=== PATIENT | female | born 1930 | race Caucasian/White ===

== ENCOUNTER 2016-05-18 11:21 | Inpatient (IN) | payer MEDICARE ==
[~2016-05-18] VITALS: Ht 165.1 cm; Wt 77.1 kg
[~2016-05-18 11:21] MED LIST: AMBIEN5 MG PO; COLACE100 MG PO; COUMADIN4 MG PO; COUMADIN5 MG PO; COUMADIN6 MG PO; HYDROCODON-ACE1 EAC7 PO; MIRAPEX ER3 MG PO; PERCOCET 5-3251 TAB PO; SYMBICORT 80-10.2 GM INH; ZESTRIL20 MG PO; ZESTRIL40 MG PO; ZOFRAN4 MG PO
[2016-05-18 12:40] LABS: HEMATOCRIT 34.7 % (36.0-48.0); HEMOGLOBIN 11.9 g/dL (12-16); MCH 29.6 pg (26.0-34.0); MCHC 34.3 g/dL (31.0-37.0); MCV 86.3 fL (80.0-100.0); MEAN PLATELET VOLUME 9.8 fL (7.4-10.4); PLATELET COUNT 186 10x3/uL (130-400); RBC 4.02 10x6/uL (4.00-5.40); RDW 14.2 % (11.5-14.5); WBC 22.2 10x3/uL (4.8-10.8)
[2016-05-18 12:59] LABS: LYMPHOCYTES 2 % (15-50); MONOCYTES 3 % (2-11); NEUTROPHILS 64 % (40-80); PLATELET ESTIMATE NORMAL
[2016-05-18 13:00] LABS: TOXIC GRANULATION 1+; VACUOLES 1+
[2016-05-18 13:12] LABS: ALBUMIN 2.5 g/dL (3.4-5.0); ALKALINE PHOSPHATASE 104 U/L (46-116); ALT (SGPT) 11 U/L (10-68); BILIRUBIN - TOTAL 0.55 mg/dL (0.2-1.3); CALCIUM 8.3 mg/dL (8.5-10.1); CARBON DIOXIDE 20.3 mmol/L (21.0-32.0); CHLORIDE - SERUM 97 mmol/L (98-107); CREATININE - SERUM 1.5 mg/dL (0.6-1.3); GLUCOSE 116 mg/dL (74-106); PROTEIN - SERUM 5.6 g/dL (6.4-8.2); SODIUM 130 mmol/L (136-145); eGFR NON AFRICAN AMERICAN 35 mL/min (90-120)
[2016-05-18 13:18] LABS: CREATINE KINASE 26 UL (21-215); PRO BNP 912 pg/mL (0-450)
[2016-05-18 13:26] LABS: CALC OSMOLALITY 267 mosm/kg (275-300); POTASSIUM - SERUM 3.4 mmol/L (3.5-5.1); TROPONIN-I < 0.017 ng/mL (0.000-0.060); UREA NITROGEN 30 mg/dL (7-18)
[2016-05-18 13:35] LABS: APPEARANCE CLEAR (CLEAR); COLOR YELLOW (YELLOW)
[2016-05-18 13:36] LABS: BILIRUBIN NEGATIVE (NEGATIVE); GLUCOSE NEGATIVE (NEGATIVE); KETONE NEGATIVE (NEGATIVE); LEUKOCYTE ESTERASE TRACE (NEGATIVE); NITRITE NEGATIVE (NEGATIVE); PROTEIN TRACE mg/dL (NEGATIVE); UROBILINOGEN NORMAL (NORMAL)
[2016-05-18 13:43] LABS: BACTERIA MODERATE /hpf (NONE SEEN); EPITHELIAL CELLS 0-5 /hpf (0-5); HYALINE CAST 0-5 /lpf (NONE SEEN); MUCUS <1+ /lpf (NONE SEEN); RED CELLS - URINE OCC /hpf (0-5)
--- NOTE | 2016-05-18 16:30 | NUR ---
PATIENT ARRIVED TO UNIT AT 1620 VIA WHEELCHAIR FROM ER AND ADMITTED TO ROOM 2110. ALERT AND ORIENTED. PATIENT WITH FAMILY FRIEND, AT BEDSIDE. CALL LIGHT WITH IN REACH. 20 GAUGE IV TO RIGHT FOREARM SALINE LOCKED. DENIES PAIN. NO ACUTE DISTRESS.
[2016-05-18] MEDS ORDERED: COUMADIN5 MG PO (16:49)
[2016-05-18] MEDS ORDERED: ZESTRIL40 MG PO (16:49)
--- NOTE | 2016-05-18 17:00 | NUR ---
CALL LAB AND QUESTIONED LETICIA WHY THE MICROBIOLOGY REPORT STATES THAT THE URINE WAS NOT RECEIVED IN LAB FOR THE CULTURE AND SHE STATED THAT THE URINE IS HERE AND THAT THE REPORT SAYS THAT UNTIL THE PRELIMINARY REPORT IS BACK. INFORMED LETICIA THAT IN THE PAST, REPORTS ALWAYS STATE CULTURE PENDING AND THIS APPEARS THAT THE SPECIMEN WAS NOT RECEIVED FROM NURSING END. SPOKE WITH PEN AND PENCIL REPAIRER IN REGARDS TO INFORMATION THAT LAB PROVIDED.
[2016-05-18 17:16] VITALS: BP 145/71; BMI 22.0
[2016-05-18 17:25] LABS: INR 3.82 (0.85-1.17); PROTIME 38.1 SECONDS (11.6-15.0)
--- NOTE | 2016-05-18 17:45 | NUR ---
ASSISTED PATIENT TO RESTROOM WITH USE OF WALKER. NO STOOL, UNABLE TO COLLECT SPECIMEN. ASSISTED PATIENT BACK TO BED. NO DISTRESS. CALL LIGHT PLACED WITHIN REACH.
--- NOTE | 2016-05-18 18:41 | NUR ---
CLEAR LIQUID DIET PROVIDED TO PATIENT AT THIS TIME. RESTING IN BED WITH EYES OPEN. CALL LIGHT WITHIN REACH. NO DISTRESS.
--- NOTE | 2016-05-18 20:00 | NUR ---
PT RESTING IN BED. ALERT/ORIENTED. NEEDING TO VOID. ASSISTED UP TO BATHROOM, USING WALKER AND STAFF ASSISTANCE, PT ABLE TO GO TO BATHROOM, VOID AND RETURN TO BED. NS @ 125ML/HR INFUSING TO RIGHT WRIST. NONLABORED RESPIRATIONS ON ROOM AIR. SEE ASSESSMENT. CPOC. CALL LIGHT IN REACH.
--- NOTE | 2016-05-18 20:39 | NUR ---
VISITOR AT BEDSIDE. PT CONVERSING. CPOC. CALL LIGHT IN REACH.
[2016-05-18 20:57] VITALS: BP 129/56
--- NOTE | 2016-05-18 21:03 | NUR ---
DR ERNESTINA PACHECO. CURRENTLY IN ROOM SEEING PATIENT.
--- NOTE | 2016-05-18 23:10 | NUR ---
HS MEDS GIVEN, INCLUDING REQUESTED AMBIEN 2.5MG TO PROMOTE SLEEP. PT HAS BEEN ASSISTED UP TO BATHROOM AGAIN AND IS NOW READY TO SLEEP. CPOC.
[2016-05-19 00:34] VITALS: BP 112/97
[2016-05-19 04:31] VITALS: BP 127/61
[2016-05-19 05:54] LABS: BASOPHILS 0.1 % (0.0-2.0); EOSINOPHILS 0.1 % (0-7); HEMATOCRIT 32.4 % (36.0-48.0); IMMATURE GRANULOCYTES 0.8 % (0-5); LYMPHOCYTES 3.2 % (15-50); MCH 29.5 pg (26.0-34.0); MCV 86.9 fL (80.0-100.0); MEAN PLATELET VOLUME 10.4 fL (7.4-10.4); MONOCYTES 6.5 % (2-11); NEUTROPHILS 89.3 % (40-80); PLATELET COUNT 190 10x3/uL (130-400); RBC 3.73 10x6/uL (4.00-5.40); RDW 14.5 % (11.5-14.5); WBC 17.4 10x3/uL (4.8-10.8)
--- NOTE | 2016-05-19 06:00 | NUR ---
ASSISTED UP TO USE BATHROOM AND BACK TO BED. PT C/O FEELING WEAKER AND TIRED. STATES SHE DID NOT SLEEP LAST NIGHT FOR GETTING UP AND DOWN TO THE BATHROOM. IVF NS @ 125ML/HR INFUSING. CPOC.
[2016-05-19 06:15] LABS: ANION GAP 15.1 mmol/L (8-16); CALCIUM 8.1 mg/dL (8.5-10.1); CARBON DIOXIDE 19.4 mmol/L (21.0-32.0); CREATININE - SERUM 1.2 mg/dL (0.6-1.3); POTASSIUM - SERUM 3.5 mmol/L (3.5-5.1)
[2016-05-19 07:40] VITALS: BP 160/85
--- NOTE | 2016-05-19 08:08 | NUR ---
ASSESSMENT DONE. PT LAYING IN BED AWAKE. BREAKFAST TRAY IN ROOM, BUT PT WISHESE TO WAIT UNTIL LATER TO EAT IT. DENIES NEEDS AT THIS TIME. CALL LIGHT WITH IN REACH. WILL CONT. TO MONITOR.
--- NOTE | 2016-05-19 09:30 | NUR ---
RESTS WITH EYES CLOSED. IV PATENT. CALL LIGHT IN REACH. WILL MONITOR NEEDS.
[2016-05-19 10:19] VITALS: BMI 22.0
[2016-05-19 11:48] VITALS: BP 187/105
--- NOTE | 2016-05-19 11:57 | NUR ---
PT SITTING IN CHAIR AT BEDSIDE. C/O SOB. TREMBLING, C/O BEING COLD. CARD WRITER HAND TOOK VS WITH MACHINE B/P 187/108, P-135, O2 82, TEMP 98.7. PHYSICAL THERAPY AND RESP PAGE. PT ASSITED WITH GETTING PT BACK TO BED. NURSE TOOK VS MANUALLY. B/P 150/102, P-105, O2-78, TEMP 103 AX. PLACED PT ON O2 AT 4LITERS VIA NC PER PT. WITH INCREASED O2 SAT TO 95%. PAGED NIKOLE CARPET CLEANING TECHNICIAN. COOL WASH CLOTHES PLACED IN PT'S HOT SPOT, PT ENCOURAGED TO DRINK ICE WATER. ORDER FOR TYLENOL REC'D AND ADM. WILL MONITOR.
--- NOTE | 2016-05-19 14:16 | NUR ---
TEMP 99.3. PT STATES SHE IS FEELING BETTER. EATTING LATE LUNCH. DENEIS NEEDS AT THIS TIME. WILL CONT. TO MONITOR.
--- NOTE | 2016-05-19 16:00 | NUR ---
IV TO PT'S LEFT ARM INFILTRATED. REMOVED WARM MOIST HEAT APPLIED. RESITED TO PT'S LEFT FOREARM WITH 22 G.
[2016-05-19 16:09] LABS: % SATURATION 19 % (15-55); IRON 15 ug/dl (35-150); TOTAL IRON BIND CAPACITY 78 ug/dl (260-445); UNSAT IRON BIND CAPACITY 63 ug/dl (150-375)
[2016-05-19 16:18] VITALS: BP 91/47
--- NOTE | 2016-05-19 17:58 | NUR ---
PT RESTING. HOB ELEVATED. FAMILY IN ROOM. NO DISTRESS NOTED. DENIES NEEDS. CALL LIGHT WITH IN REACH. WILL CONT. TO MONITOR.
--- NOTE | 2016-05-19 19:45 | NUR ---
PT SUPERVISOR SOLDERING LIGHT REQUESTING ASSISTANCE TO BATHROOM. AUTO HAULER ASSISTED PT TO BATHROOM. VOIDS IN SMALL AMOUNTS. IVF NS @ 125ML/HR INFUSING. O2 @ 4L/NC. SR PER TELEMETRY. ASSISTED BACK TO BED.
--- NOTE | 2016-05-19 20:30 | NUR ---
DR DO ON UNIT SEEING PATIENT.
--- NOTE | 2016-05-19 21:09 | NUR ---
SOON LEFT PT ROOM, SHE WAS GRAIN HANDLER LIGHT SAYING HE WAS GIVING HER MEDS FOR HAVING A BM. PT THEN C/O BED SHEETS NEEDING TO BE STRAIGHTENED, THAT HER PILLOW WAS CROOKED, THAT "TUBES" WERE EVERYWHERE. SPOKE WITH PT ABOUT BEING INDEPENDENT POSSIBLE. PT STATES SHE IS TOO WEAK TO EVEN LIFT HER HEAD OR PULL UP A SHEET. COMPLETELY PULLED UP/REPOSITONED ALL SHEETS/COVERS/GOWN. PT C/O LUMP IN HER BACK, WHICH ENDED UP BEING THE TIE IN HER GOWN. SO GOWN IS NOW UNTIED SO IT WILL NOT BOTHER HER. PLACED ONE SHEET, ONE BLANKET AND ONE SATIN PILLOW BEHIND PT'S HEAD. HS MEDS GIVEN, WHICH INCLUDED ONE TIME DOSE OF DUCOLAX AND MOM TO PROMOTE BM PER NEW ORDERS OF DR. DO. CALL LIGHT IN REACH. CPOC.
[2016-05-19 22:01] VITALS: BP 114/62
--- NOTE | 2016-05-19 22:26 | NUR ---
EYES CLOSED. RESPS EVEN/NONLABORED. CALL LIGHT IN REACH. CPOC.
[2016-05-20 01:10] VITALS: BP 102/49
[2016-05-20 05:17] LABS: HEMATOCRIT 32.1 % (36.0-48.0); HEMOGLOBIN 10.8 g/dL (12-16); MCH 28.4 pg (26.0-34.0); MCHC 33.6 g/dL (31.0-37.0); MCV 84.5 fL (80.0-100.0); PLATELET COUNT 206 10x3/uL (130-400); RDW 14.5 % (11.5-14.5); WBC 21.9 10x3/uL (4.8-10.8)
[2016-05-20 05:33] VITALS: BP 111/53
[2016-05-20 05:47] LABS: ANION GAP 14.8 mmol/L (8-16); CARBON DIOXIDE 19.3 mmol/L (21.0-32.0); CREATININE - SERUM 1.1 mg/dL (0.6-1.3); POTASSIUM - SERUM 3.1 mmol/L (3.5-5.1)
[2016-05-20 06:57] LABS: INR 8.12 (0.85-1.17); PROTIME 69.7 SECONDS (11.6-15.0)
[2016-05-20 06:59] LABS: LYMPHOCYTES 2 % (15-50); MONOCYTES 3 % (2-11); NEUTROPHILS 77 % (40-80); PLATELET ESTIMATE NORMAL
[2016-05-20 08:00] VITALS: BP 114/67
--- NOTE | 2016-05-20 08:04 | NUR ---
0730-AM ROUNDING MADE, HOB OF 30 DEGREES. PATIENT IS RESTING WITH EYES CLOSED. RESP ARE EVEN AND NON LABORED. ON HEART MONITOR SHOWING SR, HR 99. ON 2 L PER NC. NS INFUSING AT 100 CC/HR TO LEFT FA. WILL CONTINUE TO MONITOR. ON EP, LAB VALUES ARE OFF, WILL REPLACE PER PROTOCOL.
[2016-05-20 08:17] LABS: FOLATE (FOLIC ACID) - SERUM 18.9 ng/mL (>3.0)
--- NOTE | 2016-05-20 09:24 | NUR ---
CRITICAL RESULTS WERE REPEATED OF PT/INR AND RESULTS ARE THE SAME. 69.7/8.12, NIKOLE BLAKELY APN IS NOTIFIED OF THIS, AWAITING CALL BACK.
--- NOTE | 2016-05-20 10:12 | NUR ---
PATIENT IS UP IN CHAIR, DENIES NEEDS. RT HERE FOR BREATHING TREATMENT. WILL CONTINUE TO MONITOR.
--- NOTE | 2016-05-20 10:19 | NUR ---
1016-RECEIVED CALL BACK FROM NIKOLE BLAKELY APN. NEW ORDERS RECEIVED AND NOTED.
[2016-05-20 12:00] VITALS: BP 134/82
--- NOTE | 2016-05-20 13:51 | NUR ---
PATIENT TO HAVE VERY LOOSE STOOL THAT WAS MIXED WITH URINE. UNABLE TO SEND SEPCIMEN FOR LAB ORDER.
[2016-05-20 16:00] VITALS: BP 144/86
--- NOTE | 2016-05-20 16:45 | NUR ---
Patient Name: MARTHA KENNY Admission Status: ER Accout number: [id number] Admission Date: 05-18-2016 : 1930 Admission Diagnosis:PNEUMONIA, UNSPECIFIED ORGANISM Attending: MULU Current LOS: 2 Anticipated DC Date: Planned Disposition: Home Primary Insurance: MEDICARE A & B Discharge Planning Comments: * Is the patient Alert and Oriented? Yes 0 * How many steps to enter\exit or inside your home? 4 W/RAILS 0 * PCP DR. MCDONALD 0 * Pharmacy [facility] 0 * Preadmission Environment Home Alone 0 * ADLs Independent 0 * Equipment Cane Walker Wheelchair 0 * Other Equipment NO MEDICAL EQUIPMENT PROVIDER PREFERENCE 0 * List name and contact numbers for known caregivers / representatives who currently or will assist patient after discharge: EDER ARCHULETA, DAUGHTER, 0 * Community resources currently utilized None 0 * Please name any agencies selected above. OTHER 0 * Additional services required to return to the preadmission environment? No 0 * Can the patient safely return to the preadmission environment? Yes 0 * Has this patient been hospitalized within the prior 30 days at any hospital? No 0 CM MET WITH PT IN ROOM TO DISCUSS DISCHARGE PLANNING AND NEEDS. PT REPORTS LIVING AT HOME INDEPENDENTLY AND ALONE. PT HAS NO MEDICAL EQUIPMENT AND NO OUTSIDE SERVICES ASSISTING IN THE HOME. CM DISCUSSED AVAILABILITY OF HOME HEALTH, REHAB SERVICES AND MEDICAL EQUIPMENT. PT DOES NOT ANTICIPATE DISCHARGE NEEDS AT THIS TIME BUT WILL CONSIDER HOME HEALTH SERVICES; PT REPORTS HER DAUGHTER FROM [place] IS GOING TO COME AND STAY WITH HER TO ASSIST AFTER DISCHARGE. PT REPORTS DAUGHTER WILL PICK HER UP FOR DISCHARGE HOME. PT DOES NOT ANTICIPATE DISCHARGE NEEDS AND WILL CONSIDER HOME HEALTH FOR DISCHARGE. CM TO FOLLOW AND ASSIST NEEDED. Casino Attendant: Anthony Carranza
--- NOTE | 2016-05-20 17:39 | NUR ---
CHLORASEPTIC SPRAY GIVEN PER REQUEST.
[2016-05-20 20:00] VITALS: BP 147/80
--- NOTE | 2016-05-20 20:14 | NUR ---
HAT AND CAP DRYING ROOM ATTENDANT AT BED SIDE, UP WIT ASSIST TO BSC FOR BM. UNABLE TO COLLECT SPECIMEN DUE TO URINE BEING MIXED IN SPECIMEN.
[2016-05-21] VITALS: BP 139/78; BP 141/75
--- NOTE | 2016-05-21 00:26 | NUR ---
HAND SPRAY OPERATOR AT BEDSIDE TO OBTAIN VITALS, CALL LIGHT IN REACH. WILL CONTINUE WITH PLAN OF CARE.
[2016-05-21 06:29] LABS: BASOPHILS 0.1 % (0.0-2.0); EOSINOPHILS 0 % (0-7); HEMATOCRIT 35.4 % (36.0-48.0); HEMOGLOBIN 12.2 g/dL (12-16); IMMATURE GRANULOCYTES 4.2 % (0-5); LYMPHOCYTES 3.2 % (15-50); MCH 29.3 pg (26.0-34.0); MCHC 34.5 g/dL (31.0-37.0); MCV 85.1 fL (80.0-100.0); MEAN PLATELET VOLUME 10.4 fL (7.4-10.4); MONOCYTES 4.5 % (2-11); PLATELET COUNT 264 10x3/uL (130-400); RBC 4.16 10x6/uL (4.00-5.40); RDW 14.8 % (11.5-14.5); WBC 30.5 10x3/uL (4.8-10.8)
[2016-05-21 06:34] LABS: ANION GAP 15.7 mmol/L (8-16); CALCIUM 7.7 mg/dL (8.5-10.1); CARBON DIOXIDE 18.2 mmol/L (21.0-32.0); POTASSIUM - SERUM 3.9 mmol/L (3.5-5.1)
[2016-05-21 06:59] LABS: INR 11.33 (0.85-1.17); PROTIME 90.9 SECONDS (11.6-15.0)
[2016-05-21 08:00] VITALS: BP 148/79
--- NOTE | 2016-05-21 08:00 | NUR ---
ALERT AND ORIENTED X4. RESTING IN BED. DENIES PAIN OR SOB. PROTIME 90.9 AND INR-11.33. NOTIFY KURT AGUSTIN. ORDER REDRAW FOR VERIFICATION. CALL RESULTS TO . SINUS RHYTHM 91bpm ON TELEMETRY. BED LOCKED AND LOW. CALL LIGHT IN REACH. TWO SIDERAILS UP.
[2016-05-21 10:22] LABS: INR 12.42 (0.85-1.17); PROTIME 97.9 SECONDS (11.6-15.0)
--- NOTE | 2016-05-21 10:45 | NUR ---
PROTIME 97.9 AND INR 12.42. CALL RESULTS TO DR. GALVAN. NO NEW ORDERS AT THIS TIME. FREE FROM BLEEDING.
[2016-05-21 12:00] VITALS: BP 130/74
--- NOTE | 2016-05-21 14:24 | NUR ---
Nutrition Follow Up: Chart reviewed. Diet: Regular; Ensure TID PO Intake: 28% (7 meal avg) +BM x 3 05/21/16 Wt stable Labs noted - Glucose elevated; Na low Meds: Solumedrol, Ns @ 100 ml/hr, Zofran Pt with poor po intake at this time. Rec consider an appetite stimulant. Rec continue current diet, supplement regimen. RD following.
--- NOTE | 2016-05-21 14:58 | NUR ---
ALERT AND ORIENTED X4. OOB WITH PHYSICAL THERAPY. AMBULATES IN [place] TO NURSES DESK ASSISTED BY PT AND WALKER. DENIES PAIN. OXYGEN THERAPY @ 2L NC. STOOL TAKEN TO LAB. IV NS DECREASED TO 50mL/HR ORDERED. CONTINUE PLAN OF CARE. BED LOCKED AND LOW. CALL LIGHT IN REACH. TWO SIDERAILS UP. SINUS TACH 115bpm ON TELEMETRY. VIT. K GIVEN FOR HIGH PT AND INR.
[2016-05-21 17:09] LABS: INR 11.79 (0.85-1.17); PROTIME 93.9 SECONDS (11.6-15.0)
--- NOTE | 2016-05-21 19:10 | NUR ---
ALERT/AWAKE WATCHING TV. IN CONTACT ISOLATION FOR CDIFF. IV IN L FA WITH NS INFUSING AT 50ML/HR. 02 AT 2L/NC. RR 18 EVEN U/L. TELEMETRY SHOWS [address] ST ON MONITOR. DENIES PAIN OR ANY NEEDS. CALL LIGHT AND BEDSIDE TABLE WITH PERSONAL ITEMS IN REACH.
--- NOTE | 2016-05-21 20:50 | NUR ---
ADMIN SCHED MEDS. HELD MILK OF MAG, STATED SHE HAD DIARRHEA TODAY. REQUESTED ANOTHER GOWN AND PILLOW.
[2016-05-21 22:35] VITALS: BP 123/58
--- NOTE | 2016-05-21 23:00 | NUR ---
IV INFILTRATED. REMOVED AND RESITED IN RT FA 20G.
--- NOTE | 2016-05-22 00:50 | NUR ---
REQUESTED MILK OF MAG HELD EARLIER. STATED "I AM FEELING SOME PRESSURE IN MY STOMACH AND WANT TO HAVE THE MILK OF MAG NOW".
[2016-05-22 01:32] VITALS: BP 134/62
[2016-05-22 02:24] LABS: BASOPHILS 0.1 % (0.0-2.0); EOSINOPHILS 0 % (0-7); HEMOGLOBIN 11.6 g/dL (12-16); LYMPHOCYTES 2.2 % (15-50); MCH 29.1 pg (26.0-34.0); MCHC 35.2 g/dL (31.0-37.0); MCV 82.9 fL (80.0-100.0); MEAN PLATELET VOLUME 9.8 fL (7.4-10.4); MONOCYTES 3.1 % (2-11); NEUTROPHILS 87.6 % (40-80); PLATELET COUNT 223 10x3/uL (130-400); RBC 3.98 10x6/uL (4.00-5.40); RDW 14.6 % (11.5-14.5); WBC 42.6 10x3/uL (4.8-10.8)
[2016-05-22 02:35] LABS: APTT 43.6 SECONDS (22.8-39.4)
[2016-05-22 02:37] LABS: ANION GAP 15.4 mmol/L (8-16); CALCIUM 8.3 mg/dL (8.5-10.1); CREATININE - SERUM 1.2 mg/dL (0.6-1.3); POTASSIUM - SERUM 4.4 mmol/L (3.5-5.1)
[2016-05-22 02:42] LABS: INR 3.08 (0.85-1.17); PROTIME 32.1 SECONDS (11.6-15.0)
[2016-05-22 02:44] LABS: NORMAL PLASMA / APTT 31.4 SECONDS (22.8-39.4); NORMAL PLASMA / PROTHROBIN 15.1 SECONDS (11.6-15.0)
--- NOTE | 2016-05-22 05:30 | NUR ---
VOLUNTEER RECRUITER GAVE BATH, CHANGED BEDDING, ASSISTED TO BSC.
[2016-05-22 05:59] VITALS: BP 102/55
--- NOTE | 2016-05-22 07:54 | NUR ---
AM ROUNDING- PT LAYING IN BED RESTING, DENIES ANY NEED AT THIS TIME. FRIEND AT BEDSIDE. ON EP, AWAITING AM LAB RESULTS TO COME BACK. IN ISOLATION FOR C.DIFF. ALERT AND ORIENTED. ON 2L 0F 02 VIA NC. IV SEEN TO RIGHT FOREARM WITH NS RUNNING AT 50CC. PT HAS BEDSIDE COMMODE. ON MONITOR SHOWING ST, HR 119. PT IS UP WITH ASSIST. PER REPORT FROM FOREST RANGER NURSE ROSALVA, PT HAS HX OF LEUKOCYTOSIS. PT IS REQUESTING TO NOT HAVE MILK OF MAG GIVEN TO HER ANYMORE. WILL CONTINUE TO MONITOR.
[2016-05-22 08:00] VITALS: BP 101/52
[2016-05-22 10:01] LABS: INR 2.59 (0.85-1.17); PROTIME 27.9 SECONDS (11.6-15.0)
[2016-05-22 10:05] LABS: APTT 32.3 SECONDS (22.8-39.4)
--- NOTE | 2016-05-22 10:47 | NUR ---
PT IS UP WITH ASSIST. HAS WALKER AT BEDSIDE.
--- NOTE | 2016-05-22 11:37 | NUR ---
DR. NOGUEIRA CALLED AND STATED TO GIVE COPY OF PTS LAB RESULTS TO DR. RAMOS, PTS PRIMARY DOCTOR, AND TO ALSO HAVE NIKOLE BLAKELY CALL HIM WHEN SHE COMES TO UNIT. WILL CONTINUE TO MONITOR. .
[2016-05-22 12:33] VITALS: BP 104/55
--- NOTE | 2016-05-22 12:39 | NUR ---
CALLED RADIOLOGY, SPOKE WITH SHWETHA AND INFORMED HER THAT WE NEED A STAT ACUTE ABDOMINAL SERIES ON PT.
[2016-05-22 16:00] VITALS: BP 102/50
--- NOTE | 2016-05-22 16:08 | NUR ---
MITCHELL GILL REPORTED ASKING PT IF SHE WOULD LIKE TO HAVE A BED BATH AND CLEAN UP. PT STATED SHE DID NOT WANT TO TODAY. WILL CONTINUE TO MONITOR.
--- NOTE | 2016-05-22 18:26 | NUR ---
PT LAYING IN BED RESTING, DAUGHTER AT BEDSIDE. DENIES ANY NEED AT THIS TIME. AWAITING BLADDER SCAN TO BE BACK ON UNIT FROM MED SURG TO DO A BLADDER SCAN OF PTS BLADDER. PT HAS HAD NO REPORT OF URINATING TODAY BUT HAS HAD WATERY DIARRHEA (PT HAS C.DIFF). WILL CONTINUE TO MONITOR.
--- NOTE | 2016-05-22 18:50 | NUR ---
DR. DO REPORTED TO ME ON UNIT THAT HE WOULD LIKE TO PUT A PARADA IN PT. WILL PASS THIS ON IN REPORT TO BIOMETRICIAN NURSE, ROSALVA. WILL CONTINUE TO MONITOR.
--- NOTE | 2016-05-22 19:20 | NUR ---
ALERT/AWAKE WATCHING TV. REQUESTED JELLO AND COLA. IN IN R FA INTACT/PATENT. HER DAUGHTER IS PRESENT IN ROOM. NO QUESTIONS OR CONCERNS VOICED.
[2016-05-22 20:30] VITALS: BP 141/72
--- NOTE | 2016-05-22 22:30 | NUR ---
PLACED PARADA PER ORDER. HAD APPROXIMATELY 350CC DARK URINE DRAINED INTO BAG.
--- NOTE | 2016-05-22 23:21 | NUR ---
HAND TUBE BENDER ASSISTING TO BSC. NO OTHER NEEDS VOICED.
[2016-05-23] VITALS (15 sets, daily range): BP systolic 80–125; BP diastolic 47–71; Ht 165.1 cm; Wt 77.1 kg
--- NOTE | 2016-05-23 02:35 | NUR ---
RECEIVING RESP. UPDRAFT TX. DENIES ANY NEEDS AT THIS TIME. HAS CALL LIGHT IN REACH.
[2016-05-23 06:57] LABS: ANION GAP 15.7 mmol/L (8-16); CALCIUM 7.9 mg/dL (8.5-10.1); CARBON DIOXIDE 16.1 mmol/L (21.0-32.0); CREATININE - SERUM 1.4 mg/dL (0.6-1.3); POTASSIUM - SERUM 4.8 mmol/L (3.5-5.1)
[2016-05-23 06:58] LABS: BASOPHILS 0.6 % (0.0-2.0); EOSINOPHILS 0.1 % (0-7); HEMATOCRIT 36.3 % (36.0-48.0); HEMOGLOBIN 12.5 g/dL (12-16); IMMATURE GRANULOCYTES 12.2 % (0-5); LYMPHOCYTES 2.5 % (15-50); MCH 29.5 pg (26.0-34.0); MCHC 34.4 g/dL (31.0-37.0); MCV 85.6 fL (80.0-100.0); MEAN PLATELET VOLUME 11.1 fL (7.4-10.4); MONOCYTES 1.8 % (2-11); NEUTROPHILS 82.8 % (40-80); PLATELET COUNT 167 10x3/uL (130-400); RBC 4.24 10x6/uL (4.00-5.40); RDW 15.6 % (11.5-14.5)
[2016-05-23 07:02] LABS: INR 1.93 (0.85-1.17)
--- NOTE | 2016-05-23 07:45 | NUR ---
RESTING QUIETLY NAD NOTED AT THIS TIME
--- NOTE | 2016-05-23 08:54 | NUR ---
ASSESSMENT COMPLETED. 02 AT 2 L/M PER [place]. TELEMERTY SHOWS ST 102.IV TO FA AT 150. DR. MCDONALD HERE. ORDERS RECIEVED FROM DR. PEREYRA AND DR. DO.
[2016-05-23 12:00] LABS: EOSINOPHILS 2 % (0-7); LYMPHOCYTES 6 % (15-50); MONOCYTES 2 % (2-11); NEUTROPHILS 78 % (40-80)
[2016-05-23 12:02] LABS: PLATELET ESTIMATE NORMAL
--- NOTE | 2016-05-23 12:48 | NUR ---
PT ARRIED TO UNIT AT THIS TIME VIA BED. RECIEVED REPORT FROM ABHINAV FROM MED 2. PT ACCOMPANIED BY HOSPITAL STAFF. IS ON CONTACT ISOLATION FOR CDIFF. NO ACUTE DISTRESS NOTED. WILL CONTINUE PLAN OF CARE.
--- NOTE | 2016-05-23 12:51 | NUR ---
TRANSFERED TO ICU. REPORT GIVEN TO VILMA SAPP
--- NOTE | 2016-05-23 13:33 | NUR ---
SITTING UP IN BED AT THIS TIME. ALERT AND ORIENTED. NO ACUTE DISTRESS NOTED. PARTIAL LINEN CHANGE PROVIDED, INCONTINENT YELLOW-LIQUID COLORED STOOL NOTED. SOPHIA AND PARADA CARE PROVIDED TO PT. WILL CONTINUE PLAN OF CARE
--- NOTE | 2016-05-23 15:11 | NUR ---
SITTING UP IN BED AT THIS TIME VISITING WITH VISITORS. NOTED NEW ORDER FOR RECTAL TUBE AND PROCALAMINE IV. WILL START SECOND IV FOR PROCALAMINE TO INFUSE AND WILL PLACE RECTAL TUBE AFTER VISITATION IS OVER. NOTED RECAL TUBE IS ORDERED TO PRESERVE SKIN, PT HAVING MULTIPLE EPISODES OF WATERY STOOL. NO ACUTE DISTRESS NOTED. WILL CONTINUE PLAN OF CARE
[2016-05-23 15:32] LABS: BASOPHILS 0.4 % (0.0-2.0); EOSINOPHILS 0.2 % (0-7); HEMATOCRIT 36.6 % (36.0-48.0); HEMOGLOBIN 13.1 g/dL (12-16); IMMATURE GRANULOCYTES 18.5 % (0-5); LYMPHOCYTES 3.1 % (15-50); MCH 29.9 pg (26.0-34.0); MCHC 35.8 g/dL (31.0-37.0); MCV 83.6 fL (80.0-100.0); MEAN PLATELET VOLUME 10.4 fL (7.4-10.4); MONOCYTES 0.5 % (2-11); NEUTROPHILS 77.3 % (40-80); PLATELET COUNT 101 10x3/uL (130-400); RBC 4.38 10x6/uL (4.00-5.40); RDW 14.9 % (11.5-14.5)
[2016-05-23 15:33] LABS: WBC 72.2 10x3/uL (4.8-10.8)
--- NOTE | 2016-05-23 16:23 | NUR ---
RECTAL TUBE PLACED AT THIS TIME. STOOL FLOWING INTO CLOSED CONTAINER. ALSO AT THIS TIME ATTEMPTED TO START A SECOND IV X 2 ATTEMPTS WITH NO SUCCESS TO LEFT THEN RIGHT FOREARM. WILL ASK NEXT NURSE TO ATTEMPT NEW IV START. NO ACUTE DISTRESS NOTED. WILL CONTINUE PLAN OF CARE.
--- NOTE | 2016-05-23 17:00 | NUR ---
SECOND IV PLACED TO RIGHT AC, 20G. FLUSHES WELL.
--- NOTE | 2016-05-23 18:34 | NUR ---
NOTED DR HEIN HAS ALREADY BEEN NOTIFIED OF CONSULT FOR PT PER NURSES NOTES. PAGED DR HEIN AT THIS TIME TO MAKE SURE CONSULT HAS BEEN MADE AND NOTIFY OF INCREASING WBC. WAITING FOR CALLBACK.
--- NOTE | 2016-05-23 18:43 | NUR ---
RECIEVED CALLBACK FROM DR HEIN, STATED SHE IS AWARE OF CONSULT, UPDATE GIVEN. ALSO DR PEREYRA SPOKE TO DR HEIN TO GIVE UPDATE. WILL CONTINUE PLAN OF CARE
--- NOTE | 2016-05-23 19:00 | NUR ---
RECEIVED PATIENT IN BED WITH EYES OPEN USING HER IPAD. PATIENT IS AO X4. EYES PERRLA @ 4MM WITH BRISK RESPONSE, PATIENT WEARS GLASSES, SCLERA IS CLEAR AND WHITE. PATIETN ON 2L VIA NC, ORAL/NASAL MUCOSA IS MOIST AND INTACT. S1/S2 NOTED WITH PATIENT SINUS TACHYCARDIA ON TELEMETRY. BREATHING IS EVEN AND EFFORTLESS, LUNG SOUNDS ARE CLEAR BILATERAL UPPER WITH FINE CRACKLES NOTED IN LOWER LOBES. ABDOMEN IS SOFT AND NONTENDER TO PALPATION, PARADA SECURED WITH STATLOCK, ADORE URINE NOTED IN COLLECTION BAG. BOWEL SOUNDS HYPOACTIVE X4, FECAL TUBE SECURED IN PLACE WITH YELLOW LIQUID STOOL NOTED. FULL ROM ALL EXTREMITIES WITH SLIGHT WEAKNESS NOTED, ALL PULSES PALPABLE. PATIENT DENIES PAIN OR OTHER NEEDS AT THIS TIME, WILL CONTINUE TO MONITOR.
--- NOTE | 2016-05-23 19:20 | NUR ---
SPOKE WITH DR DUBOIS IN RELATION TO PT LOW BLOOD PRESSURE OF 85/57 WITH MAP OF 70, PULSE 109. NOTED ORDER FOR ONE TIME BOLUS 500ML NS. AND IF THE NS DOES NOT HELP WITH BP THEN TO START LEVOFED TITRATE. WILL PLACE ORDERS ORDERED.
[2016-05-23 19:28] LABS: CREATININE - URINE 186.6 mg/dL (30-125)
[2016-05-23 19:31] LABS: APPEARANCE HAZY (CLEAR); BACTERIA MODERATE /hpf (NONE SEEN); BILIRUBIN NEGATIVE (NEGATIVE); COLOR DK YELLOW (YELLOW); EPITHELIAL CELLS 0-5 /hpf (0-5); GLUCOSE NEGATIVE (NEGATIVE); KETONE NEGATIVE (NEGATIVE); LEUKOCYTE ESTERASE TRACE (NEGATIVE); MUCUS <1+ /lpf (NONE SEEN); NITRITE NEGATIVE (NEGATIVE); PROTEIN TRACE mg/dL (NEGATIVE); RED CELLS - URINE >50 /hpf (0-5); UROBILINOGEN NORMAL (NORMAL)
--- NOTE | 2016-05-23 19:50 | NUR ---
SPOKE WITH DR ABDUL WHO HAD SPOKEN WITH PT DAUGHTERS, POA, PT DAUGHTERS WISH FOR THE PT TO NO LONGER BE A DNR; THEY WANT HER TO BE A FULL CODE. WILL CONTACT DR DO TO NOTIFY.
--- NOTE | 2016-05-23 20:06 | NUR ---
DR DO PAGED AT THIS TIME BY [facility] TO NOTIFY OF FAMILY DECISION TO CHANGE STATUS. WAITING FOR CALLBACK.
--- NOTE | 2016-05-23 20:20 | NUR ---
RECIEVED CALLBACK FROM DR DO OF PT FAMILY REQUEST. PT IS NOW FULL CODE.
--- NOTE | 2016-05-23 20:45 | NUR ---
SPOKE TO DR ABDUL REGARDING CODE STATUS. PATIENT WISHED TO BE FULL DNR AND DAUGHTERS ARE POA IN EVENT OF NEED. PATIENT HAS EXPRESSED SAME WISHES, WILL NOTIFY FOR CHANGE IN STATUS FOR SYSTEM.
--- NOTE | 2016-05-23 22:59 | NUR ---
REASSESSMENT COMPLETE, PATIENT RESTING IN BED WITH EYES CLOSED. BREATHING IS EVEN AND UNLABORED, LUNG SOUNDS ARE CLEAR UPPER WITH SLIGHTLY DIMINISHED LOWER LOBES. PATIENT STATES SHE "WANTS TO REST UNTIL HER BREATHING TREATMENT", REPOSITIONED PATIENT FOR COMFORT AND TURNED OFF LIGHT TO FACILITATE RESTING. PATIENT ASKED ABOUT COUGHING, EDUCATED ON NEED FOR COUGH/DEEP BREATHING EXCERCISES AND PATIENT SUCCESSFULLY RETURNED DEMONSTRATION. DENIES PAIN OR OTHER NEEDS AT THIS TIME, ALL VSS, WILL CONTINUE TO MONITOR.
[2016-05-24] VITALS (25 sets, daily range): BP systolic 81–119; BP diastolic 53–86
--- NOTE | 2016-05-24 00:57 | NUR ---
PATIENT RESTING IN BED WITH EYES CLOSED, BREATHING IS EVEN AND EFFORTLESS. PATIENT C/O DIFFICULTY SLEEPING, ATTEMPTED TO REPOSITION FOR COMFORT AND PATIENT STATES "SOME RELIEF". PATIENT C/O DISCOMFORT BUT STATES PAIN IS ONLY 2/10, PAIN MEDICATION GIVEN ORDERED AND WILL REASSESS. DENIES OTHER NEEDS AT THIS TIME, WILL CONTINUE TO MONITOR.
--- NOTE | 2016-05-24 03:00 | NUR ---
REASSESSMENT COMPLETE, PATIENT RESTING IN BED WITH EYES OPEN. BREATHING IS EVEN AND EFFORTLESS, LUNG SOUNDS ARE CLEAR BILATERAL UPPER WITH FINE CRACKLES NOTED IN LOWER LOBES. PATIENT SBP >90 WITH MAP >70, PATIENT DENIES PAIN OR OTHER NEEDS AT THIS TIME. RADIOLOGY AT BEDSIDE, PATIENT REPOSITIONED FOR COMFORT. ALL VSS AND WILL CONTINUE TO MONITOR.
--- NOTE | 2016-05-24 05:00 | NUR ---
PATIENT RESTING IN BED WITH EYES OPEN, BREATHING IS EVEN AND EFFORTLESS. AM LABS DRAWN BY POST ANESTHESIA NURSE, WILL WILL WAIT FOR RESULTS TO DETERMINE NEED FOR ELECTROLYTE REPLACEMENT. PATIENT DENIES PAIN OR OTHER NEEDS AT THIS TIME, ALL VSS. PATIENT REPOSITIONED FOR COMFORT AND ASSISTED WITH ORAL CARE, WILL CONTINUE TO MONITOR.
[2016-05-24 05:51] LABS: INR 1.61 (0.85-1.17); PROTIME 19.1 SECONDS (11.6-15.0)
[2016-05-24 06:32] LABS: ALBUMIN 1.2 g/dL (3.4-5.0); ANION GAP 11.2 mmol/L (8-16); BILIRUBIN - TOTAL 0.91 mg/dL (0.2-1.3); CALCIUM 7.1 mg/dL (8.5-10.1); CARBON DIOXIDE 20.6 mmol/L (21.0-32.0); CREATININE - SERUM 1.2 mg/dL (0.6-1.3); MAGNESIUM - SERUM 3.3 mg/dL (1.8-2.4); POTASSIUM - SERUM 4.8 mmol/L (3.5-5.1); PROTEIN - SERUM 3.9 g/dL (6.4-8.2)
[2016-05-24 06:34] LABS: BASOPHILS 0.6 % (0.0-2.0); EOSINOPHILS 0.1 % (0-7); HEMATOCRIT 34.7 % (36.0-48.0); HEMOGLOBIN 12.2 g/dL (12-16); IMMATURE GRANULOCYTES 20.7 % (0-5); LYMPHOCYTES 2.7 % (15-50); MCH 29.4 pg (26.0-34.0); MCHC 35.2 g/dL (31.0-37.0); MCV 83.6 fL (80.0-100.0); MEAN PLATELET VOLUME 10.2 fL (7.4-10.4); MONOCYTES 1.5 % (2-11); NEUTROPHILS 74.4 % (40-80); RBC 4.15 10x6/uL (4.00-5.40); RDW 14.9 % (11.5-14.5)
[2016-05-24 06:35] LABS: PLATELET COUNT 100 10x3/uL (130-400); WBC 74.9 10x3/uL (4.8-10.8)
--- NOTE | 2016-05-24 10:41 | NUR ---
0700 PT AWAKE ALERT AND ORIENTED. ABLE TO FOLLOW COMMANDS. S1S2 NOTED. NORMAL SINUS ON MONITOR. LUNG SOUNDS DIMINISHED BILAT. ABDOMEN DISTENDED, SOFT TO TOUCH. SHALLOW BREATHING NOTED. WEAKNESS NOTED IN EXTREMITIES X4. SCDS ON LOWER EXTREMITIES BILAT. ENTERIC ISOLATION PRECAUTIONS. PT STABLE AT THIS TIME. WILL CONTINUE TO MONITOR.
--- NOTE | 2016-05-24 10:44 | NUR ---
0900 VITAL SIGNS STABLE. NO CHANGES IN PT STATUS AT THIS TIME
--- NOTE | 2016-05-24 11:49 | NUR ---
1100 PT REPOSITIONED FOR COMFORT. PT USING IS AND PULLING 1000. EDUCATED PT ON IMPORTANCE OF IS. NO FURTHER CHANGES
--- NOTE | 2016-05-24 12:39 | NUR ---
Nutrition Follow Up: Chart reviewed. Pt is +CDT - severe per ID MD. Per chart pt with edema - third spacing. Pt continues NPO. Wt gain of 17# since admit I>O Meds: Levophed, Flagyl, Zofran, Procalamine @ 75 ml/hr providing 441 kcal and 52 g protein. Rec advancing diet when medically feasible. Procalamine is not meeting est nutritional needs. If diet unable to advance rec begin nutrition support via TPN/TF. RD following.
--- NOTE | 2016-05-24 13:43 | NUR ---
1300 PT REPOSITIONED IN BED. PARTIAL LINEN CHANGE COMPLETE. VITAL SIGNS STABLE. NO FURTHER CHANGES
--- NOTE | 2016-05-24 18:11 | NUR ---
1500 PT ABLE TO SWALLOW CLD WITH NO TROUBLE. GIVEN WARM WATER AND PT IS ABLE TO COUGH UP SMALL AMOUNT OF CLEAR SPUTUM.
--- NOTE | 2016-05-24 18:13 | NUR ---
1700 PT REPOSITIONED IN BED. VITAL SIGNS STABLE. ORAL CARE PERFORMED INDEPENDENTLY. WILL CONTINUE TO MONITOR
--- NOTE | 2016-05-24 19:00 | NUR ---
RECEIVED PATIENT ALERT AND ORIENTED LAYING IN BED WATHCHING TV, AO X4. EYES PERRLA @ 4MM WITH BRISK RESPONSE, SCLERA IS WHITE AND CLEAR. 2L O2 VIA NC, MUCOSA IS MOIST AND INTACT. S1/S2 NOTED WITH PATIENT TACHYCARDIC ON TELEMETRY. BREATHING IS SHALLOW AND RYTHMIC, LUNG SOUNDS ARE CLEAR UPPER WITH FINE CRACKLES AND DIMINISHED LOWER LOBES. ABDOMEN IS SLIGHTLY DISTENDED AND NON-TENDER, WITH BOWEL SOUNDS HYPOACTIVE X4. PARADA IS SECURED IN PLACE WITH STATLOCK, SMALL AMOUNT OF ADORE URINE NOTED IN COLLECTION BAG. FULL ROM ALL EXTREMITIES WITH SLIGHT WEAKNESS NOTED, SKIN IN WARM AND DRY WITH NON-TENTING TURGOR. PATIENT C/O DISCOMFORT IN BACK RATED 2/10, REPOSTITIONED FOR COMFORT. RECTAL MEDS INSTILLED, TUBE CLAMPED FOR 1 HOUR TO HOLD IN MEDS. PATIENT DENIES PAIN OR OTHER NEEDS AT THIS TIME, WILL CONTINUE TO MONITOR.
--- NOTE | 2016-05-24 23:00 | NUR ---
REASSESSMENT COMPLETE, PATIENT LAYING AWAKE IN BED WATCHING TV. BREATHING IS RYTHMIC AND EVEN ON 2L VIA NC, LUNG SOUNDS ARE CLEAR UPPER LOBES WITH DIMINISHED LOWER LOBES. ABDOMEN IS SLIGHTLY DISTENDED AND SOFT, NON-TENDER TO PALPATION. PATIENT C/O DISCOMFORT AND GENERALIZED PAIN IN BACK FROM "LAYING DOWN SO LONG", REPOSITIONED FOR COMFORT. PATIENT RATES PAIN 1/10, DOESN'T "NEED ANYTHING AT THE MOMENT". ALL VSS WITH NO FURTHER NEEDS AT THIS MOMENT, WILL CONTINUE TO MONITOR.
[2016-05-25] VITALS (26 sets, daily range): BP systolic 96–139; BP diastolic 55–92
--- NOTE | 2016-05-25 03:00 | NUR ---
REASSESSMENT COMPLETE, NO CHANGES FROM PREVIOUS ASSESSMENT. PATIENT C/O BACK PAIN, PAIN MEDICATION UNAVAILABLE AND REPOSITIONING INEFFECTIVE. BREATHING IS SLIGHTLY RAPID AND SHALLOW, LUNG SOUNDS CLEAR UPPER WITH DIMINISHED LOWER. STATES PAIN 7/10, DENIES OTHER NEEDS AT THIS TIME. ALL VSS AND WILL CONTINUE TO MONITOR.
--- NOTE | 2016-05-25 03:10 | NUR ---
PATIENT C/O PAIN IN BACK OF 11/29, REPOSITIONING FAILED TO ALLEVIATE DISCOMFORT. NO PAIN MEDICATION CURRENTLY AVAILABLE, PAGED DR DO OFFICE FOR OTHER MEDICATIONS TO GIVE. WILL WAIT FOR REPLY AND CONTINUE TO MONITOR.
--- NOTE | 2016-05-25 03:35 | NUR ---
PAGED DR DO ANSWERING SERVICE AGAIN, NO REPLY SINCE LAST TIME. PATIENT STILL C/O SERIOUS BACK PAIN, ATTEMPTED HEATING PACK AND REPOSITIONING AGAIN WITH NO RELIEF FOR PATIENT. WILL WAIT FOR REPLY AND CONTINUE TO MONITOR.
[2016-05-25 04:27] LABS: PROTIME 15.5 SECONDS (11.6-15.0)
[2016-05-25 04:29] LABS: INR 1.24 (0.85-1.17)
[2016-05-25 04:34] LABS: HEMATOCRIT 34.6 % (36.0-48.0); HEMOGLOBIN 12.3 g/dL (12-16); MCH 29.8 pg (26.0-34.0); MCHC 35.5 g/dL (31.0-37.0); MCV 83.8 fL (80.0-100.0); MEAN PLATELET VOLUME 10.5 fL (7.4-10.4); PLATELET COUNT 19 10x3/uL (130-400); RBC 4.13 10x6/uL (4.00-5.40); RDW 14.6 % (11.5-14.5)
[2016-05-25 04:40] LABS: ANION GAP 9.8 mmol/L (8-16); CREATININE - SERUM 1.1 mg/dL (0.6-1.3); POTASSIUM - SERUM 4.8 mmol/L (3.5-5.1)
--- NOTE | 2016-05-25 04:40 | NUR ---
NOTIFIED OF CRITICAL VALUES BY LALITHA IN LAB, WBC-83 AND PLT-19.
[2016-05-25 04:44] LABS: LYMPHOCYTES 21 % (15-50); MONOCYTES 3 % (2-11); NEUTROPHILS 58 % (40-80)
[2016-05-25 04:48] LABS: PLATELET ESTIMATE DECREASED; SMUDGE CELLS 3+
--- NOTE | 2016-05-25 07:00 | NUR ---
REC'D REPORT AND RESUMED CARE, AAO, VSS, O2 VIA NC, RIGHT HAND PIV WITH PROCALAMINE AT 75 CC/HR, RIGHT FA PIV WITH BICARB GTT AT 100 CC/HR, PARADA WITH ADORE DRAINAGE TO BAG, RECTAL TUBE, WITH BROWN DRAINAGE TO BAG, SCD'S ON B/L, +4 SWELLING AND FOOT DROP NOTED TO B/L FEET, C/O OF PAIN 12/30 TO BACK REPOSITIONED UP AND TO BACK WITH HEELS FLOATED, ASSESSMENT COMPLETE PER FLOWSHEET, CALL LIGHT IN REACH, VOICES NO NEEDS AT THIS TIME
--- NOTE | 2016-05-25 08:30 | NUR ---
AM MEDS GIVEN WITHOUT DIFFICULTY
--- NOTE | 2016-05-25 08:51 | NUR ---
DR. NOGUEIRA HERE FOR EVAL, NEW ORDERS GIVEN
--- NOTE | 2016-05-25 09:00 | NUR ---
FAMILY AT BEDSIDE, STATUS UPDATED, VOICES NO NEEDS AT THIS TIME
--- NOTE | 2016-05-25 09:15 | NUR ---
DR CARBALLO HERE FOR EVAL, NEW ORDERS GIVEN, SPOKE DOC TO DOC WITH DR. CONTRERAS RE POC
--- NOTE | 2016-05-25 11:00 | NUR ---
SLEEPING WITH NO SIGNS OF DISTRESS, VSS, NO ACUTE CHANGE FROM PREVIOUS ASSESSMENT
--- NOTE | 2016-05-25 11:03 | NUR ---
NORCO 10/325 GIVEN PO FOR BACK PAIN 03/01, ASSESSMENT COMPLETE PER FLOWSHEET, VSS, REPOSITIONED TO LEFT SIDE WITH PILLOW PROPPED TO BACK AND HEELS FLOATED, K PAD ORDER FROM MATERIALS, CALL LIGHT IN REACH, VOICES NO OTHER NEEDS AT THIS TIME
--- NOTE | 2016-05-25 12:00 | NUR ---
FAMILY AT BEDSIDE, STATUS UPDATED, VOICES NO NEEDS AT THIS TIME
--- NOTE | 2016-05-25 13:25 | NUR ---
PLATELETS BEGAN PER ORDER AT 500 CC/HR
--- NOTE | 2016-05-25 13:55 | NUR ---
PLATELET TRANSFUSION COMPLETED, VSS BP 125/70, HR120, RESP 20, TEMP 98.3
--- NOTE | 2016-05-25 15:00 | NUR ---
NO AUCTE CHANGE FROM PREVIOUS ASSESSMENT, K PAD PLACE TO BACK WITH PER ORDER
--- NOTE | 2016-05-25 17:40 | NUR ---
NORCO 10/325 PO GIVEN FOR BACK PAIN 11/29 PER ORDER
--- NOTE | 2016-05-25 19:00 | NUR ---
RECEIVED PATIENT AWAKE AND ALERT IN BED WITH VISITORS AT BEDSIDE. EYES PERRLA @ 4MM WITH BRISK RESPONSE, SCLERA IS WHITE. ORAL/NASAL MUCOSA IS MOIST AND INTACT, 2L VIA NC. S1/S2 NOTED WITH PATIENT SINUS TACHYCARDIA ON TELEMETRY. BREATHING IS SHALLOW AND REGULAR, LUNG SOUNDS CLEAR UPPER WITH DIMINISHED LOWER. ABDOMEN IS DISTENDED AND SOFT, BOWEL SOUNDS HYPOACTIVE X4. PARADA SECURED WITH STATLOCK, ADORE URINE NOTED IN COLLECTION BAG. FULL ROM UPPER EXTREMITIES, LIMITED ROM LOWER DUE TO SWELLING. ALL PULSES PALPABLE, CAP REFILL <3 SEC. SLIGHT SWELLING IN UPPER EXTREMITIES 1+ WITH SWELLING NOTED IN LOWER EXTREMITIES 2+. 20G IV R WRIST AND 20G IV R FOREARM NOTED, PATENT AND SEE FLOW SHEET FOR INFUSIONS. PATIENT DENIES PAIN OR OTHER NEEDS AT THIS TIME, WILL CONTINUE TO MONITOR.
--- NOTE | 2016-05-25 21:00 | NUR ---
FAMILY AT BEDSIDE, PATIENT RESTING IN BED. BREATHING IS SHALLOW AND RYTHMIC, PATIENT BECOMES SHORT OF BREATH WHEN TALKING AT LENGTH, DISCUSSED NEED TO SLOW DOWN AND BREATH BETWEEN SENTENCES. PATIENT REPOSITIONED FOR COMFORT, ALL VSS. PATIENT DENIES PAIN OR OTHER NEEDS AT THIS TIME, WILL CONTINUE TO MONITOR.
--- NOTE | 2016-05-25 23:00 | NUR ---
REASSESSMENT COMPLETE, NO CHANGES FROM PREVIOUS ASSESSMENT. PATIENT RESTING IN BED WITH EYES CLOSED, BREATHING IS SHALLOW AND RYTHMIC, LUNG SOUNDS ARE CLEAR UPPER WITH SLIGHTLY DIMINISHED LOWER LOBES. ABDOMEN IS DISTENDED AND SOFT, NON-TENDER TO PALPATION. PATIENT DENIES PAIN OR OTHER NEEDS AT THIS TIME, ALL VSS. WILL CONTINUE TO MONITOR.
[2016-05-26] VITALS (25 sets, daily range): BP systolic 95–156; BP diastolic 40–95
--- NOTE | 2016-05-26 01:00 | NUR ---
PATIENT RESTING IN BED WITH EYES CLOSED ON 2L VIA NC, BREATHING IS SHALLOW AND RYTHMIC. OXYGEN SATURATION IS 96%. PATIENT C/O PAIN IN ABDOMEN WHEN COUGHING, ABDOMEN IS DISTENDED AND NON-TENDER TO PALPATION. STOOL AND URINE SAMPLES COLLECTED AND SENT TO LAB. ALL VITAL SIGNS STABLE, WILL CONTINUE TO MONITOR.
[2016-05-26 02:43] LABS: APPEARANCE HAZY (CLEAR); BILIRUBIN 1+ (NEGATIVE); COLOR AMBER (YELLOW); GLUCOSE NEGATIVE (NEGATIVE); KETONE NEGATIVE (NEGATIVE); LEUKOCYTE ESTERASE TRACE (NEGATIVE); NITRITE NEGATIVE (NEGATIVE); PH 5.5 (5.0-6.0); PROTEIN NEGATIVE (NEGATIVE); SPECIFIC GRAVITY 1.015 (1.005-1.020)
[2016-05-26 02:49] LABS: AMORPHOUS SEDIMENT <1+ /lpf (NONE SEEN); BACTERIA MODERATE /hpf (NONE SEEN); EPITHELIAL CELLS OCC /hpf (0-5); GRANULAR CAST OCC /lpf (NONE SEEN); HYALINE CAST RARE /lpf (NONE SEEN); RED CELLS - URINE 25-50 /hpf (0-5); WHITE CELLS - URINE 0-5 /hpf (0-5)
--- NOTE | 2016-05-26 03:00 | NUR ---
REASSESSMENT COMPLETE, PATIENT RESTING IN BED WITH EYES CLOSED ON 2L VIA NC. HOB ELEVATED TO 45 DEGREES, PATIENT STATES SHE IS COMFORTABLE. BREATHING IS SHALLOW AND RYTHMIC, LUNG SOUNDS ARE CLEAR BILATERAL UPPER WITH DIMINISHED LOWER LOBES. PATIENT ABDOMEN IS DISTENDED AND SOFT, NON-TENDER TO PALPATION. RECTAL TUBE SECURED IN PLACE WITH LIQUID STOOL DRAINING IN TO COLLECTION BAG. PARADA SECURED IN PLACE WITH ADORE URINE NOTED IN COLLECTION BAG. PATIENT STATES PAIN IN ABDOMEN WHEN COUGHING, NO PAIN WHEN RESTING. REPOSITIONED PATIENT FOR COMFORT, ALL VITALS STABLE. PATIENT DENIES OTHER NEEDS AT THIS TIME, WILL CONTINUE TO MONITOR.
[2016-05-26 04:40] LABS: HEMOGLOBIN 11.4 g/dL (12-16); MCH 29.6 pg (26.0-34.0); MCHC 34.5 g/dL (31.0-37.0); MCV 85.7 fL (80.0-100.0); MEAN PLATELET VOLUME 8.8 fL (7.4-10.4); PLATELET COUNT 14 10x3/uL (130-400); RBC 3.85 10x6/uL (4.00-5.40); RDW 14.3 % (11.5-14.5); WBC 70.2 10x3/uL (4.8-10.8)
[2016-05-26 04:43] LABS: D-DIMER-QUANTITATIVE 0.49 ug/mLFEU (0.20-0.54)
[2016-05-26 04:58] LABS: ALBUMIN 1.2 g/dL (3.4-5.0); ANION GAP 6.8 mmol/L (8-16); BILIRUBIN - TOTAL 2.9 mg/dL (0.2-1.3); CARBON DIOXIDE 30.9 mmol/L (21.0-32.0); CREATININE - SERUM 0.9 mg/dL (0.6-1.3); MAGNESIUM - SERUM 2.5 mg/dL (1.8-2.4); POTASSIUM - SERUM 4.7 mmol/L (3.5-5.1); PROTEIN - SERUM 3.9 g/dL (6.4-8.2); THYROID STIMULATING HORMONE 2.39 uIU/mL (0.36-3.74)
--- NOTE | 2016-05-26 05:00 | NUR ---
PATIENT RESTING IN BED WITH EYES CLOSED BREATHING SHALLOW AND RYTHMIC, OXYGEN SAT 96%. PATIENT REPOSITIONED FOR COMFORT, DENIES PAIN OR OTHER NEEDS AT THIS TIME. ALL VSS AND WILL CONTINUE TO MONITOR.
[2016-05-26 05:01] LABS: PHOSPHOROUS 2.2 mg/dL (2.5-4.9)
[2016-05-26 05:02] LABS: CALCIUM 6.6 mg/dL (8.5-10.1)
[2016-05-26 05:09] LABS: EOSINOPHILS 1 % (0-7); LYMPHOCYTES 26 % (15-50); MONOCYTES 2 % (2-11); NEUTROPHILS 52 % (40-80); PLATELET ESTIMATE DECREASED
--- NOTE | 2016-05-26 06:40 | NUR ---
PATIENT PLATELET - 19, PAGED DR NOGUEIRA FOR FURTHER INSTRUCTIONS. 1 UNIT PLATELET APHERESIS ORDERED PER MIRLANDE, READ BACK AND CONFIRMED. WILL BEGIN TO TRANSFUSE WHEN PLATELETS ARE READY.
--- NOTE | 2016-05-26 07:00 | NUR ---
REC'D REPORT AND RESUMED CARE, AWAKE AND ALERT, O2 VIA NC AT 2L, SAT 96%, OHTER VSS, RIGHT HAND PIV INUSING PROCALAMINE AT 75 CC/HR, RIGHT FA PIV INUSING BICARB GTT AT 100 CC/HR, B/L UPPER EXTREMETIES WITH PUPURA FA, BLANCHING PETECHIAE NOTED TO TORSO, PARADA TO GRAVITY WITH ADORE DRAINAGE TO BAG, RECTAL TUBE IN PLACE WITH DARK GREEN DRAINAGE TO BAG, B/L SCD'S IN PLACE, +3 NON PITTING PEDAL EDEMA AND DROPPED FOOT NOTED, ASSESSMENT COMPLET PER FLOWSHEET, DENIES PAIN, CALL LIGHT IN REACH, VOICES NO NEEDS AT THIS TIME
--- NOTE | 2016-05-26 08:10 | NUR ---
PLATELETS INITIATED AT 250 CC/HR, PER ORDER
--- NOTE | 2016-05-26 08:54 | NUR ---
DR. NOGUEIRA HERE FOR EVAL, NO NEW ORDERS AT THIS TIME, AWAITING TEST RESULTS
--- NOTE | 2016-05-26 09:00 | NUR ---
FAMILY AT BEDSIDE, STATUS UPDATED, VOICES NO NEEDS AT THIS TTIME
--- NOTE | 2016-05-26 10:38 | NUR ---
BICARB GTT DC'D PER DR CARTY
--- NOTE | 2016-05-26 10:56 | NUR ---
NUTRITION MONITORING & EVAL CHART REVIEWED, CLEAR LIQUID DIET. PROCALAMINE @ 75 CC/HR, D5W @ 100 CC/HR. PROVIDING 849 KCAL, [address] GM [address]. RD FOLLOWING
--- NOTE | 2016-05-26 11:00 | NUR ---
NO ACUTE CHANGE FROM PREVIOUS ASSESSMENT, VSS, CALL LIGHT IN REACH, DENIES PAIN, NO NEEDS AT THIS TIME
--- NOTE | 2016-05-26 15:00 | NUR ---
ASSESSMENT COMPLETE PER FLOWSHEET, NO ACUTE CHANGE FROM PREVIOUS, VSS, CALL LIGHT IN REACH, REPOSITIONED UP AND TO BACK WITH HEELS FLOATED
--- NOTE | 2016-05-26 15:30 | NUR ---
DR CARBALLO HERE FOR EVAL, NOW ORDERS GIVEN, PROCALAMINE CHANGED TO 40 CC/HR
--- NOTE | 2016-05-26 16:15 | NUR ---
PC FROM LAB, PLT LEVEL 14, PAGED DR. NOGUEIRA
--- NOTE | 2016-05-26 16:20 | NUR ---
PC FROM DR NOGUEIRA, RH SPECIFIC PLATELETS ORDERED
--- NOTE | 2016-05-26 17:40 | NUR ---
INITIATED RH SPECIFIC PLATELETS TO INFUSE AT 100 CC/HR
--- NOTE | 2016-05-26 18:30 | NUR ---
FAMILY AT BEDSIDE, STATUS UPDATED, NO OTHER NEEDS AT THIS TIME
--- NOTE | 2016-05-26 19:35 | NUR ---
RECTAL TUBE DC'D PER ORDER, TOLERATEED PROCEDURE WITHOUT DIFFICULTY, SKINCARE AND PARTIAL LINEN CHANGE COMPLETED
--- NOTE | 2016-05-26 20:00 | NUR ---
REPORT RECEIVED AND SHIFT ASSESSMENT COMPLETED. SEE ASSESSMENT FOR FULL DETAILS. PT CURRENTLY HAS PLT INFUSING. NO SIGNS OF REACTION. LAST SET OF VITALS DURING ADMINISTRATION WERE STABLE. WILL CONTINUE TO MONITOR FOR SIGNS OF REACTION DURING ADMINISTRATION. PT HAS BOTH A RIGHT FOREARM, AND RIGHT HAND PERIPHERAL IV. IV IN HAND RUNNING PROCALAMINE @ 40. PLT INFUSING IN FOREARM IV. PT HAS 2+ EDEMA IN UPP EXTREMETIES, AND 4+ IN LOWER. PT HAS LIMITED ROM IN LEGS AND FEET BILAT. SOME PASSIVE ROM PROVIDED. WILL MAKE EFFORT TO HAVE PHYSICAL THERAPY CONTACTED. RECTAL TUBE REMOVED BY ASHLEY SAPP. VSS WILL CONTINUE TO MONITOR FOR CHANGES.
--- NOTE | 2016-05-26 22:00 | NUR ---
PT HAS PRODUCED A SMALL LIQUID STOOL. PT CLEANED AND PARTIAL LINEN CHANGE GIVEN. VSS. NO OTHER CHANGES AT THIS TIME. WILL CONTINUE TO MONITOR.
--- NOTE | 2016-05-26 23:30 | NUR ---
REASSESSMENT COMPLETED. SEE ASSESSMENT FOR FULL DETAILS. PLT INFUSION COMPLETED @2049. SEE BLOOD SHEET FOR DETAILS. NO SIGNS OF REACTION. VSS. PT HAS PRODUCED ANOTHER LIQUID STOOL. COMPLETE LINEN CHANGE PROVIDED, AND PASTE APPLIED TO BUTTOCK.
[2016-05-27] VITALS (24 sets, daily range): BP systolic 108–155; BP diastolic 57–96
--- NOTE | 2016-05-27 00:36 | NUR ---
SHIFT ASSESSMENT COMPLETED DURING THE 1900 HR WAS CHARTED FOR 0020. UNABLE TO CHANGE TIME.
--- NOTE | 2016-05-27 01:25 | NUR ---
PT SLEEPING IN ROOM. VSS. NO CHANGES TO REPORT AT THIS TIME. WILL CONTINUE TO MONITOR THROUGHOUT THE NIGHT.
--- NOTE | 2016-05-27 04:17 | NUR ---
PT SLEEPING IN ROOM. 0300 REASSESSMENT COMPLETED. SEE ASSESSMENT FOR DETAILS. VSS. BED IN LOW POSITION. WILL CONTINUE TO MONITOR.
[2016-05-27 05:39] LABS: APTT 40.7 SECONDS (22.8-39.4); INR 1.14 (0.85-1.17); PROTIME 14.5 SECONDS (11.6-15.0)
[2016-05-27 05:59] LABS: BASOPHILS 0.9 % (0.0-2.0); EOSINOPHILS 0.2 % (0-7); HEMATOCRIT 27.2 % (36.0-48.0); HEMOGLOBIN 9.4 g/dL (12-16); IMMATURE GRANULOCYTES 19.4 % (0-5); LYMPHOCYTES 3.4 % (15-50); MCH 29.5 pg (26.0-34.0); MCHC 34.6 g/dL (31.0-37.0); MCV 85.3 fL (80.0-100.0); MEAN PLATELET VOLUME 9.5 fL (7.4-10.4); MONOCYTES 4.7 % (2-11); NEUTROPHILS 71.4 % (40-80); RBC 3.19 10x6/uL (4.00-5.40)
[2016-05-27 06:00] LABS: PLATELET COUNT 23 10x3/uL (130-400); WBC 53.8 10x3/uL (4.8-10.8)
[2016-05-27 06:11] LABS: ANION GAP 9.5 mmol/L (8-16); BILIRUBIN - TOTAL 3.46 mg/dL (0.2-1.3); CALCIUM 7.7 mg/dL (8.5-10.1); CREATININE - SERUM 0.9 mg/dL (0.6-1.3); MAGNESIUM - SERUM 2.6 mg/dL (1.8-2.4); POTASSIUM - SERUM 4.5 mmol/L (3.5-5.1)
[2016-05-27 06:19] LABS: ALBUMIN 2.5 g/dL (3.4-5.0); PHOSPHOROUS 2.8 mg/dL (2.5-4.9); PROTEIN - SERUM 4.9 g/dL (6.4-8.2)
--- NOTE | 2016-05-27 07:28 | NUR ---
PT HAD ANOTHER LIQUID STOOL. LINENS CHANGED. FAMILY AT BEDSIDE AFTERWARDS. NO OTHER CHANGES TO REPORT AT THIS TIME.
--- NOTE | 2016-05-27 08:32 | NUR ---
PT INC OF WATTERY STOOL, CLEANED AND LINENS CHANGED.
--- NOTE | 2016-05-27 09:45 | NUR ---
NUTRITION MONITORING & EVAL CHART REVIEWED. PROCALAMINE NOW @ 40 CC/HR. CLEAR LIQUID DIET. RECOMMEND ADVANCE DIET TO FULL LIQUID IF MEDICALLY FEASIBLE. RD FOLLOWING
--- NOTE | 2016-05-27 14:17 | NUR ---
PLATELETT INFUSIONN BEGAN. AFEBRILE,VSS.
[2016-05-27 14:41] LABS: HEMOGLOBIN 8.9 g/dL (12-16); MCH 29.5 pg (26.0-34.0); MCHC 34.2 g/dL (31.0-37.0); MCV 86.1 fL (80.0-100.0); RBC 3.02 10x6/uL (4.00-5.40); RDW 14.1 % (11.5-14.5); WBC 35.6 10x3/uL (4.8-10.8)
[2016-05-27 14:42] LABS: BASOPHILS 0.7 % (0.0-2.0); EOSINOPHILS 0.1 % (0-7); IMMATURE GRANULOCYTES 16.4 % (0-5); LYMPHOCYTES 3.8 % (15-50); MEAN PLATELET VOLUME 9.9 fL (7.4-10.4); MONOCYTES 3.7 % (2-11); NEUTROPHILS 75.3 % (40-80); PLATELET COUNT 18 10x3/uL (130-400)
--- NOTE | 2016-05-27 14:44 | EC ---
PATIENT:MARTHA KENNY DATE OF SERVICE: 05/18/16 SEX: F MEDICAL RECORD: [id number] DATE OF : 30 LOCATION:[facility] D231 AGE OF PATIENT: 86 ADMISSION DATE: 05/18/16 REFERRING PHYSICIAN: INTERPRETING PHYSICIAN: CHIRAG BANEGAS MD ECHOCARDIOGRAM REPORT ECHO CHARGES 4 ECHO COMPLETE CLINICAL DIAGNOSIS: SOB, HYPONATREMIA ECHOCARDIOGRAPHIC MEASUREMENTS (adult normal given) AC root (d.<3.7cm) 3.4 LV Septum d (<1.2 cm> 1.2 Valve Excursion 1.5 LV Septum (systole) 1.4 Left Atria (s.<4.0cm> 3.0 LVPW d(<1.2cm) 1.4 RV (d.<2.3cm) 3.6 LVPW (sytole) 1.6 LV diastole(<5.6CM) 3.7 MV E-F(>70mm/sec) LV systole 2.5 LVOT Diameter 1.9 MV exc.(>10mm) Est.ejection fraction (50-75%) Pericardial Effusion N DOPPLER: LVIT A 71.0 E 43.0 LA RVSP 17 LVOT 74 AOP1/2T Asc. Ao 108 RVOT 72 RA PA 108 AV Gradient Peak 4.64 AV Mean 2.40 AV Area 2.2 MV Gradient Peak 2.01 MV Mean 0.80 MV Area COMMENTS: Warehouser: Godwin MOTTA Pleat Taper:Stone Horvath TAPE# PACS DATE OF SERVICE: 05/23/2016 Adequate 2D echo, color flow and spectral Doppler, and M-mode. No LVH. LV internal dimensions are normal. Wall motion is normal. EF is greater than 55%. Aortic valve sclerosis without stenosis on Doppler interrogation. The left atrium is normal at 3.0 cm. Mitral valve shows no prolapse, no significant MR. Right-sided chamber is grossly normal. Trace TR. TRANSINT:[id number] Voice Confirmation ID: [id number] DOCUMENT ID: [id number] 05/27/2016 Edited to correct date of service and fill in blank, dmm. ECHOCARDIOGRAM REPORT [id number] MARTHA KENNY CHIRAG BANEGAS MD at 9830 CC: [id number] DICTATION DATE: 05/24/16 0947 HOTEL ASSISTANT MANAGER: 05/24/16 1028 ADM IN [facility] [address] [phone]
--- NOTE | 2016-05-27 19:00 | NUR ---
REPORT RECEIVED AND SHIFT ASSESSMENT COMPLETED. PT HAD RECEIVED MORE PLATELETS TODAY, AND COUNT IS NOW IN THE 50'S. NO LONGER HEAR WHEEZE IN UPPER LEFT LOBE. EDEMA HAS INCREASED SINCE PREVIOUS SHIFT. WEIGHED PT DURING ASSESSMENT, NOW AT 180 LBS. SEE ASSESSMENT FOR FULL DETAILS. VSS. WILL CONTINUE TO MONITOR.
--- NOTE | 2016-05-27 21:00 | NUR ---
2100 MEDS GIVEN. PT PRODUCES ONE SMALL LIQUID STOOL. CLEANED AND PARTIAL LINEN CHANGE. PASTE APPLIED TO BUTTOCK. NO OTHER CHANGES AT THIS TIME. WILL MONITOR.
--- NOTE | 2016-05-27 23:00 | NUR ---
REASSESSMENT COMPLETED. SEE ASSESSMENT FOR FULL DETAILS. REMOVED EXCESS LINEN, AND PILLOWS FROM BED A REWEIGHED PT. PT WEIGHT 166. WILL CONTINUE TO MONITOR FOR CHANGES.
[2016-05-28] VITALS (26 sets, daily range): BP systolic 114–172; BP diastolic 76–98
--- NOTE | 2016-05-28 02:00 | NUR ---
PROCALAMINE GIVEN WITH NEW TUBING. O OTHER CHANGES IN STATUS AT THIS TIME. VSS. WILL CONTINUE TO MONITOR.
--- NOTE | 2016-05-28 02:54 | NUR ---
PT ASSISTED TO BEDPAN. UPON REMOVAL OF THE KUMAR, NOTED CHANGE IN COLOR OF STOOL FROM BROWN TO RED TINGED WITH SMALL JELLY LIKE SPOTS FLOATING INSIDE. COLLECTED SPECIMEN AND SENT TO LAB FOR OCCULT BLOOD TEST.
--- NOTE | 2016-05-28 05:07 | NUR ---
WOLFGANG HUNG ORDERED. NO CHANGES IN STATUS AT THIS TIME. WILL CONTINUE TO MONITOR.
[2016-05-28 05:50] LABS: CALC OSMOLALITY 260 mosm/kg (275-300); CALCIUM 7.9 mg/dL (8.5-10.1); CARBON DIOXIDE 28.6 mmol/L (21.0-32.0); CHLORIDE - SERUM 91 mmol/L (98-107); CREATININE - SERUM 0.7 mg/dL (0.6-1.3); GLUCOSE 91 mg/dL (74-106); POTASSIUM - SERUM 4.1 mmol/L (3.5-5.1); SODIUM 126 mmol/L (136-145); UREA NITROGEN 34 mg/dL (7-18); eGFR NON AFRICAN AMERICAN 84 mL/min (90-120)
[2016-05-28 06:00] LABS: HEMATOCRIT 26.1 % (36.0-48.0); HEMOGLOBIN 9.1 g/dL (12-16); MCH 30.1 pg (26.0-34.0); MCHC 34.9 g/dL (31.0-37.0); MCV 86.4 fL (80.0-100.0); RBC 3.02 10x6/uL (4.00-5.40); RDW 14.4 % (11.5-14.5); WBC 24.9 10x3/uL (4.8-10.8)
[2016-05-28 06:01] LABS: BASOPHILS 0.6 % (0.0-2.0); EOSINOPHILS 0.1 % (0-7); MEAN PLATELET VOLUME 9.6 fL (7.4-10.4); MONOCYTES 5.4 % (2-11); NEUTROPHILS 74.9 % (40-80); PLATELET COUNT 26 10x3/uL (130-400)
--- NOTE | 2016-05-28 07:15 | NUR ---
REC'D REPORT AND RESUMED CARE, AWAKE AND ORIENTED, VSS O2 VIA NC AT 2L, SAT 97%, PROCALAMINE AND NS INFUSING, DENIES PAIN, ASSESSMENT COMPLTE PER FLOWSHEET, REPOSITIONED UP TO RIGHT SIDE WITH PILLOW PROPPED TO BACK AND HEELS FLOATED, NO NEEDS AT THIS TIME
--- NOTE | 2016-05-28 07:49 | NUR ---
NUTRITION MONITORING & EVAL DIET ADVANCED TO FULL LIQUID. CONTINUES PROCALAMINE @ 40 CC/HR. WILL CONTINUE TO MONITOR DIET ADVANCEMENT, PT PROGRESS. RD FOLLOWING
--- NOTE | 2016-05-28 08:30 | NUR ---
AM MEDS GIVEN PER MAR FLOWSHEET, TOLERATED WITHOUT DIFFICULTY
--- NOTE | 2016-05-28 10:30 | NUR ---
OOB TO CHAIR WITH ASSIST FROM PT, INCONTINENT OF DIARRHEA STOOL, SKINCARE AND LINEN CHANGE COMPLETED, DYSPNEA NOTED, VSS, WILL CONTINUE WITH POC
--- NOTE | 2016-05-28 11:00 | NUR ---
NO ACUTE CHANGE FROM PREVIOUS ASSESSTMENT, CONTINUES TO SIT UP IN CHAIR, NO NEEDS AT THIS TIME CALL LIGHT IN REACH
--- NOTE | 2016-05-28 11:30 | NUR ---
BACK TO BED WITH ASSIST, TOTAL LIFT, INCONTINENT OF STOOL, SKINCARE AND LINEN CHANGE COMPLETED, REPOSITIONED UP IN BED TO BACK WITH HEELS FLOATED, CALL LIGHT IN REACH
--- NOTE | 2016-05-28 11:45 | NUR ---
FULL LIQUID LUNCH TRAY TO BEDSIDE, ASSIST WITH SET UP AND INDEPENDENT WITH EATING
--- NOTE | 2016-05-28 12:30 | NUR ---
AIR OVERLAY MATTRESS APPLIED TO BED WITH PERSONNEL X2, TOLERATED WITHOUT DIFFICULTY
--- NOTE | 2016-05-28 13:30 | NUR ---
DR PICHARDO HERE FOR EVAL, NEW ORDERS GIVEN, SPOKE WITH DR. ABDUL RE: POC
--- NOTE | 2016-05-28 14:05 | NUR ---
RESTING WITH NO SIGNS OF DISTRESS, VSS, CALL LIGHT IN REACH, COICES NO NEEDS AT THIS TIME
--- NOTE | 2016-05-28 15:00 | NUR ---
INCONTINENT OF DIARRHEA STOOL, SKINCARE AND LINEN CHANGE COMPLETED, NO OTHER ACUTE CHANGE FROM PREVIOUS ASSESSMENT
--- NOTE | 2016-05-28 17:00 | NUR ---
DINNER TRAY TO BEDSIDE, ASSIST WITH SET UP, INDEPENDENT WITH EATING
--- NOTE | 2016-05-28 18:00 | NUR ---
FAMILY AND FRIENDS AT BEDSIDE, STATUS UPDATE, DISCUSSED POC WITH DR CARBALLO,NO OTHER NEEDS AT THIS TIME
--- NOTE | 2016-05-28 18:43 | NUR ---
INCONTINENT OF DIARRHEA STOOL, SKINCARE COMPLETE, CAMOLSEPTINE APPLIED, LINEN CHANGED, NO OTHER NEEDS AT THIS TIME
--- NOTE | 2016-05-28 19:00 | NUR ---
ASSESSMENT COMPLETED AND NOTED. PT SAID SHE WAS HAVING A HARD TIME BREATHING. DR CARTY NOTIFIED AND ORDERS RECEIVED. PT REMAINS ON 2L/NC. WHEEZING BOTH LUNGS AT THIS TIME. HAD BOUT OF DIARRHEA AND WAS CLEANED UP. BRUISING TO BOTH ARMS NOTED. VOICES NO C/O PAIN AT THIS TIME. LAB RETURNED FOR PLATELET'S WAS 74. WILL CONTINUE TO MONITOR PER ICU PROTOCOL
--- NOTE | 2016-05-28 19:59 | NUR ---
PT RECEIVED BREATHING TREATMENT AROUND 1800, HOWEVER, STILL WHEEZING. DR SCHMITZ NOTIFIED AND ORDERS RECEIVED FOR LASIX AND SOLU-MEDROL AND THIS WAS GIVEN AND APPEARS TO BE BREATHING BETTER. ALSO CLEANED PT UP FOR DIARRHE AND CHANGED PT. WILL CONTINUE TO MONITOR
--- NOTE | 2016-05-28 21:00 | NUR ---
HS MEDICATIONS GIVEN PER DR'S ORDERS. PT BREATHING WELL AT THIS TIME. VOICES NO C/O DISCOMFORT OR PAIN AT THIS TIME. WAS ABLE TO TAKE ALL OF MEDICATION WITH OUT ANY PROBLEMS. WILL CONTINUE TO MONITOR
--- NOTE | 2016-05-28 23:15 | NUR ---
PT CONTINUES TO REST AT THIS TIME. BREATHING WELL. WILL CONTINUE TO MONITOR PER [facility] PROTOCOL
[2016-05-29] VITALS (25 sets, daily range): BP systolic 107–159; BP diastolic 58–107
--- NOTE | 2016-05-29 01:45 | NUR ---
PT AWAKE AND ASK TO BE PUT ON A BEDPAN. THIS WAS DONE AND NOW AWAITING RESULTS. WILL CONTINUE TO MONITOR
--- NOTE | 2016-05-29 01:52 | NUR ---
PT OFF OF BEDPAN, HAD SMALL AMOUNT OF DIARRHEA. WILL CONTINUE TO MONITOR PER ICU PROTOCOL
--- NOTE | 2016-05-29 03:19 | NUR ---
PT ASK TO BE REPOSITIONED IN BED AND THIS WAS DONE REQUESTED. WILL CONTINUE TO MONITOR
--- NOTE | 2016-05-29 05:07 | NUR ---
PT'S WEIGHT THIS AM WAS 187.3 AND YESTERDAY AT 1600 HER WEIGHT WAS 168. SHE ALSO PUT OUT 1600 ML OF URINE TONIGHT. UNABLE TO FIND PROBLEM WITH BED. WILL CONTINUE TO MONITOR
--- NOTE | 2016-05-29 05:27 | NUR ---
JUST CLEANED PT UP AGAIN FROM BM WITH DIARRHEA. SHE ASK THIS TIME TO BE PUT ON BED KUMAR, SO AT THIS TIME SHE IS ON BEDPAN
[2016-05-29 05:41] LABS: BASOPHILS 0.4 % (0.0-2.0); EOSINOPHILS 0 % (0-7); HEMATOCRIT 24.7 % (36.0-48.0); HEMOGLOBIN 8.5 g/dL (12-16); IMMATURE GRANULOCYTES 13.2 % (0-5); LYMPHOCYTES 5.2 % (15-50); MCH 29.8 pg (26.0-34.0); MCHC 34.4 g/dL (31.0-37.0); MCV 86.7 fL (80.0-100.0); MEAN PLATELET VOLUME 10.4 fL (7.4-10.4); MONOCYTES 6.1 % (2-11); NEUTROPHILS 75.1 % (40-80); RBC 2.85 10x6/uL (4.00-5.40); RDW 14.5 % (11.5-14.5)
[2016-05-29 05:44] LABS: PLATELET COUNT 47 10x3/uL (130-400); WBC 10.9 10x3/uL (4.8-10.8)
[2016-05-29 05:48] LABS: CALC OSMOLALITY 261 mosm/kg (275-300); CALCIUM 7.3 mg/dL (8.5-10.1); CARBON DIOXIDE 29.6 mmol/L (21.0-32.0); CHLORIDE - SERUM 92 mmol/L (98-107); CREATININE - SERUM 0.6 mg/dL (0.6-1.3); GLUCOSE 116 mg/dL (74-106); SODIUM 127 mmol/L (136-145); UREA NITROGEN 28 mg/dL (7-18); eGFR NON AFRICAN AMERICAN > 90 mL/min (90-120)
[2016-05-29 08:14] LABS: PHOSPHOROUS 2.4 mg/dL (2.5-4.9)
[2016-05-29 08:15] LABS: MAGNESIUM - SERUM 1.9 mg/dL (1.8-2.4)
--- NOTE | 2016-05-29 19:30 | NUR ---
ASSESSMENT COMPLETED AND NOTED. PT HAD TO BE CLEANED UP BEFORE ASSESSMENT FROM BM (DIARRHEA). VOICES NO C/O DISCOMFORT OR PAIN AT THIS TIME. SCD'S IN PLACE. IV'S TO RIGHT ARM BOTH PATENT. NOT COUGHING MUCH TONIGHT. AFTER PT WAS CLEANED UP SHE ASK TO BE PUT ON THE BEDPAN AND THIS WAS DONE. WILL CONTINUE TO MONITOR PER ICU PROTOCOL
--- NOTE | 2016-05-29 19:54 | NUR ---
0715-RECIVED PER FLOW SHEET-ASSISTED TO BEDPAN-R HAND 22 G INSITU-PT ALERT 1015-INCONTINENT OF LIQUID STOOL -COMPLETE SKIN CARE DONE-PHYSICAL THERAPY PLACED PT IN CHAIR 1200-REMAINS UP IN CHAIR-DR CARTY AND MIRLANDE AT BEDSIDE-FAMILY AT BEDSDIE AND ASSISTED PT WITH LUNCH TRAY-QUESTIONS ADDRESSED 1330-PHYSCAL THERAPY PLACED PT BACK TO BED -ALL LINES INTACT-NO DIARRHEA AT THIS TIME 1530-CALL LIGHT ANSWERED AND PLACED ON BEDPAN 1630-CALL LIGHT ANSWERED AND PLACED ON BEDPAN 1745-PT ASLEEP 1815-ASSISTED WITH DNNER TRAY AND PLACED ON BEDPAN AT PT REQUEST 1845-REMOVED OFF BEDPAN-SKIN CARE DONE
--- NOTE | 2016-05-29 21:00 | NUR ---
HS MEDICATIONS GIVEN PER DR'S ORDERS. ALSO PT WAS TAKEN OFF BEDPAN WITH GOOD RESULTS. CONTINUES WITH RUNNY DIARRHEA. WILL CONTINUE TO MONITOR PER ICU PROTOCOL
--- NOTE | 2016-05-29 22:49 | NUR ---
HUNG ALBUMIN PER ORDERS. PT APPEARS TO BE DOZING AT THIS TIME. WILL CONTINUE TO MONITOR
[2016-05-30] VITALS (28 sets, daily range): BP systolic 121–154; BP diastolic 66–95
--- NOTE | 2016-05-30 00:07 | NUR ---
PT'S IV WAS LEAKING IN HER RIGHT HAND AND SHE WAS COMPLAINING OF PAIN. IV WAS REMOVED. PT WAS ALSO CLEANED UP AGAIN AND ALL LINEN AND GOWN WAS CHANGED WELL. RUNNY BLACK DIARRHEA. WILL CONTINUE TO MONITOR PER ICU PROTOCOL
--- NOTE | 2016-05-30 03:32 | NUR ---
PT CLEANED UP AGAIN FROM HAVING DIARRHEA. ALSO IV IN RIGHT FOREARM WAS FOUND TO BE LEAKING AND A NEW IV WAS PLACED IN THE RIGHT HAND WITH TWO STICKS. CONTINUES WITH DIARRHEA. WILL CONTINUE TO MONITOR
--- NOTE | 2016-05-30 06:01 | NUR ---
DR. MEEKS CAME BY TO VISIT WITH PT. HOWEVER PT WAS ASLEEP AND DR. MEEKS LEFT NEWS PAPERS TO BE GIVEN TO PT AND ALSO TO LET HER KNOW THAT HE CAME BY AND WILL COME TO VISIT AFTER [facility].
--- NOTE | 2016-05-30 06:41 | NUR ---
TOLD PT THAT DR. MEEKS CAME BY AND LEFT NEWS PAPERS FOR HER AND THAT HE WOULD BE BACK AFTER [facility]. WILL CONTINUE TO MONITOR
[2016-05-30 07:03] LABS: BASOPHILS 0.2 % (0.0-2.0); EOSINOPHILS 0.5 % (0-7); HEMOGLOBIN 9.2 g/dL (12-16); IMMATURE GRANULOCYTES 7.1 % (0-5); LYMPHOCYTES 9.7 % (15-50); MCH 29.6 pg (26.0-34.0); MCHC 34.1 g/dL (31.0-37.0); MCV 86.8 fL (80.0-100.0); MEAN PLATELET VOLUME 10.3 fL (7.4-10.4); MONOCYTES 8.9 % (2-11); NEUTROPHILS 73.6 % (40-80); RBC 3.11 10x6/uL (4.00-5.40); RDW 14.6 % (11.5-14.5)
[2016-05-30 07:04] LABS: WBC 6.1 10x3/uL (4.8-10.8)
[2016-05-30 07:05] LABS: PLATELET COUNT 34 10x3/uL (130-400)
[2016-05-30 07:24] LABS: CALC OSMOLALITY 266 mosm/kg (275-300); CALCIUM 8.1 mg/dL (8.5-10.1); CARBON DIOXIDE 28.9 mmol/L (21.0-32.0); CHLORIDE - SERUM 96 mmol/L (98-107); CREATININE - SERUM 0.6 mg/dL (0.6-1.3); GLUCOSE 101 mg/dL (74-106); PHOSPHOROUS 2.5 mg/dL (2.5-4.9); POTASSIUM - SERUM 4.1 mmol/L (3.5-5.1); SODIUM 131 mmol/L (136-145); UREA NITROGEN 24 mg/dL (7-18); eGFR NON AFRICAN AMERICAN > 90 mL/min (90-120)
--- NOTE | 2016-05-30 08:28 | NUR ---
NOTED CRITICAL PLATELET LEVEL OF [address] NOGUEIRA TO NOTIFY AND RECIEVE POSSIBLE NEW ORDERS. NOTED ORDER OF 1 UNIT OF PLATELET APHERESIS, 6 PACK. ORDER PLACED AT THIS TIME. WILL CONTINUE PLAN OF CARE.
--- NOTE | 2016-05-30 09:56 | NUR ---
BED CHANGE PROVIDED. NOTED INCONTINENT BOWEL MOVEMENT, LIQUID. LINENS CHANGED AND SOPHIA CARE AND PARADA CARE PROVIDED VIA TOTAL ASSIST. NO ACUTE DISTRESS NOTED. WILL CONTINUE PLAN OF CARE.
--- NOTE | 2016-05-30 11:56 | NUR ---
SITTING UP IN BED AT THIS TIME. TRANSFERRED TO BED WITH ASSIST FROM PHYSICAL THERAPY. NO ACUTE DISTRESS NOTED.WILL CONTINUE PLAN OF CARE.
--- NOTE | 2016-05-30 13:16 | NUR ---
SITTING UP IN CHAIR BESIDE BED AT THIS TIME. NO ACUTE DISTRESS NOTED. DENIES ANY NEEDS. WILL CONTINUE PLAN OF CARE.
--- NOTE | 2016-05-30 16:38 | NUR ---
SITTING UP IN BED WATCHING TV AT THIS TIME.D ENIES ANY NEEDS. WILL CONTINUE PLAN OF CARE.
--- NOTE | 2016-05-30 18:03 | NUR ---
FAMILY IN ROOM WITH PT AT THIS TIME. PT DENEIS ANY NEEDS. WILL CONTINUE PLAN OF CARE.
--- NOTE | 2016-05-30 19:30 | NUR ---
ASSESSMENT COMPLETED AND NOTED AT THIS TIME. VOICES NO C/O PAIN, HOWEVER SAYS SHE NEEDS TO BE CLEANED UP. AND THIS WILL BE DONE. APPEARS TO BE IN A GOOD MOOD TONIGHT. WILL CONTINUE TO MONITOR PER ICU PROTOCOL
--- NOTE | 2016-05-30 20:10 | NUR ---
PT CLEANED UP FROM DIARRHEA BM. CHANGED ALL LINEN. WILL CONTINUE TO MONITOR PER ICU PROTOCOL
--- NOTE | 2016-05-30 21:15 | NUR ---
ALL HS MEDICATIONS GIVEN PER DR'S ORDERS. APPEARS SLEEPY AT THIS TIME. WILL CONTINUE TO MONITOR
--- NOTE | 2016-05-30 23:46 | NUR ---
PT CLEANED UP AGAIN AND ALL BEDDING CHANGED WELL. PT SAID SHE WOULD LIKE TO TRY AND GET SOME SLEEP BEFORE NEST BREATHING TREATMENT AT 0400. WILL CONTINUE TO MONITOR
[2016-05-31] VITALS (15 sets, daily range): BP systolic 96–143; BP diastolic 52–88
--- NOTE | 2016-05-31 01:56 | NUR ---
PT CONTINUES TO REST WITH EYES CLOSED AT THIS TIME. WILL CONTINUE TO MONITOR PER ICU PROTOCOL
--- NOTE | 2016-05-31 02:57 | NUR ---
PT CONTINUES TO REST WITH EYES CLOSED AT THIS TIME. GETTING MUCH NEEDED SLEEP TONIGHT. WILL CONTINUE TO MONITOR
--- NOTE | 2016-05-31 04:15 | NUR ---
PT AWAKE XRAY HERE TO TAKE FE MS. PT ALSO CLEANED UP AGAIN, THIS WAS A VERY LARGE AMOUNT. WILL CONTINUE TO MONITOR PER ICU PROTOCOL
--- NOTE | 2016-05-31 04:30 | NUR ---
REPOSITIONED PT FOR COMFORT. WILL CONTINUE TO MONITOR
[2016-05-31 05:43] LABS: BASOPHILS 0.3 % (0.0-2.0); EOSINOPHILS 0.6 % (0-7); HEMOGLOBIN 8.7 g/dL (12-16); IMMATURE GRANULOCYTES 4.7 % (0-5); LYMPHOCYTES 13.6 % (15-50); MCH 29.2 pg (26.0-34.0); MCHC 33.5 g/dL (31.0-37.0); MCV 87.2 fL (80.0-100.0); MEAN PLATELET VOLUME 10.7 fL (7.4-10.4); MONOCYTES 9.7 % (2-11); NEUTROPHILS 71.1 % (40-80); RBC 2.98 10x6/uL (4.00-5.40); RDW 14.4 % (11.5-14.5); WBC 3.6 10x3/uL (4.8-10.8)
[2016-05-31 05:44] LABS: PLATELET COUNT 55 10x3/uL (130-400)
[2016-05-31 05:48] LABS: ALBUMIN 2.9 g/dL (3.4-5.0); ALKALINE PHOSPHATASE 120 U/L (46-116); ALT (SGPT) 12 U/L (10-68); BILIRUBIN - TOTAL 0.64 mg/dL (0.2-1.3); CALC OSMOLALITY 268 mosm/kg (275-300); CALCIUM 7.9 mg/dL (8.5-10.1); CARBON DIOXIDE 29.7 mmol/L (21.0-32.0); CHLORIDE - SERUM 97 mmol/L (98-107); CREATININE - SERUM 0.6 mg/dL (0.6-1.3); GLUCOSE 94 mg/dL (74-106); MAGNESIUM - SERUM 1.9 mg/dL (1.8-2.4); PHOSPHOROUS 2.8 mg/dL (2.5-4.9); POTASSIUM - SERUM 4.2 mmol/L (3.5-5.1); PROTEIN - SERUM 4.7 g/dL (6.4-8.2); SODIUM 133 mmol/L (136-145); UREA NITROGEN 20 mg/dL (7-18); eGFR NON AFRICAN AMERICAN > 90 mL/min (90-120)
--- NOTE | 2016-05-31 07:00 | NUR ---
REPORT RECIEVED, INTITIAL ASSESSMENT COMPLETE, PLEASE SEE FLOW SHEETS FOR DETAILS. SELF ORAL CARE, TURNING PROVIDED. PT ON AIR OVERLAY MATRESS. DENIES PAIN/NEEDS AT THIS TIME, VSS, WILL CONTINUE TO MONITOR.
--- NOTE | 2016-05-31 08:30 | NUR ---
DR NOGUEIRA IN ROOM, ASKED IF SHE WAS OKAY IF THIS PT COULD GO TO THE FLOOR. SHE SAID IT WAS FINE WITH HER.
--- NOTE | 2016-05-31 08:53 | NUR ---
TURNING PROVIDED. DENIES PAIN/NEEDS AT THIS TIME. BED LOW AND LOCKED, CALL LIGHT IN REACH. VSS, WILL CONTINUE TO MONITOR.
--- NOTE | 2016-05-31 09:35 | NUR ---
NUTRITION MONITORING & EVAL FULL LIQUID DIET. CONTINUES PROCALAMINE @ 40 CC/HR.D RD FOLLOWING
--- NOTE | 2016-05-31 11:00 | NUR ---
DR SORIA OK'D PT TO GO TO FLOOR. PT STILL UP IN CHAIR AND TOLERATING WELL. VSS AT THIS TIME, CALL LIGHT IN REACH, WILL CONTINUE TO MONITOR.
--- NOTE | 2016-05-31 13:13 | NUR ---
CALLED AND GAVE REPORT TO SHWETHA HENDRIX ON MED SURG FOR PT TO GO TO ROOM 2201. ALL QUESTIONS ANSWERED. CHECKED ON PT, DENIES NEEDS AT THIS TIME. VSS, CALL LIGHT IN REACH, WILL CONTINUE TO MONITOR.
--- NOTE | 2016-05-31 13:43 | NUR ---
GATHERED PT BELONGINGS, WAITING FOR OKAY AND INSTRUCTIONS ON HOW THEY WANT PT MOVED. WILL CONTINUE TO MONITOR.
--- NOTE | 2016-05-31 14:45 | NUR ---
transported pt via rolling chair to room 2201. notified nurse of arrival, and left pt in nurses care.
--- NOTE | 2016-05-31 15:00 | NUR ---
RECIEVED TO ROOM VIA CHAIR FROM ICU HAS AN AIR OVERLAY ON BED PT AWAKE AND ALERT ORINETD X 3 ON CONTACT ISOLATION FOR C DIFF STOOL. TRANSFERED TO BED PER THIS NURSE AND PHYSICAL THERAPY. SCDS IN PLACE PARADA CATHETER IN PLACE PATENT TO YELLOW URINE.
--- NOTE | 2016-05-31 18:03 | NUR ---
PT SITTING UP IN BED WITH NO DISTRESS NOTED HAS FULL LIQUID DIET TOLERATING WELL. WILL MONITOR.
--- NOTE | 2016-05-31 19:26 | NUR ---
WITHOUT DISTRESS.FAMILY AT BEDSIDE.ISOLATION MAINTAINED.
[2016-06-01 01:48] VITALS: BP 133/74
--- NOTE | 2016-06-01 02:10 | NUR ---
PT IN BED WITH NO NEEDS. RIGHT HAND IV PATENT AND FLUIDS ARE RUNNING PER ORDER. O2 @ 2 PER NASAL CANNULA. SCD'S ON. PARADA IS DRAINING URINE BY GRAVITY. WHEEZES HEARD THROUGH ALL LUNG STRAUSS. ISOLATION PRECAUTIONS IN PLACE. 1ST STEP MATTRESS ON. SIDE RAILS ARE UP X 2. BED IS LOW. CALL LIGHT IS IN REACH.
[2016-06-01 04:41] VITALS: BP 136/85
[2016-06-01 05:30] LABS: BASOPHILS 0 % (0.0-2.0); EOSINOPHILS 0.6 % (0-7); HEMATOCRIT 26.8 % (36.0-48.0); HEMOGLOBIN 8.9 g/dL (12-16); IMMATURE GRANULOCYTES 1.5 % (0-5); LYMPHOCYTES 12.5 % (15-50); MCH 29.1 pg (26.0-34.0); MCHC 33.2 g/dL (31.0-37.0); MCV 87.6 fL (80.0-100.0); MEAN PLATELET VOLUME 9.8 fL (7.4-10.4); MONOCYTES 12.5 % (2-11); NEUTROPHILS 72.9 % (40-80); RBC 3.06 10x6/uL (4.00-5.40); RDW 14.6 % (11.5-14.5); WBC 3.3 10x3/uL (4.8-10.8)
[2016-06-01 05:43] LABS: PLATELET COUNT 28 10x3/uL (130-400)
[2016-06-01 05:48] LABS: CALC OSMOLALITY 265 mosm/kg (275-300); CALCIUM 8.2 mg/dL (8.5-10.1); CHLORIDE - SERUM 99 mmol/L (98-107); CREATININE - SERUM 0.5 mg/dL (0.6-1.3); GLUCOSE 85 mg/dL (74-106); MAGNESIUM - SERUM 1.9 mg/dL (1.8-2.4); POTASSIUM - SERUM 4.4 mmol/L (3.5-5.1); SODIUM 133 mmol/L (136-145); UREA NITROGEN 16 mg/dL (7-18); eGFR NON AFRICAN AMERICAN > 90 mL/min (90-120)
[2016-06-01 08:57] VITALS: BP 137/79
[2016-06-01 13:06] VITALS: BP 113/68
[2016-06-01 17:18] VITALS: BP 148/99
--- NOTE | 2016-06-01 18:25 | NUR ---
PATIENT NOT ON WEIGH BED, UNABLE TO STAND. UNABLE TO OBTAIN WEIGHT
--- NOTE | 2016-06-01 20:15 | NUR ---
PATIENT SITTING UP IN BED. NO SIGNS OF DISTRESS NOTED. DENIES ANY NEEDS AT THIS TIME. BED LOW. CALL LIGHT IN REACH.
[2016-06-01 21:00] VITALS: BP 143/87
[2016-06-02 01:00] VITALS: BP 138/78
--- NOTE | 2016-06-02 04:37 | NUR ---
AID IN ROOM AT THIS TIME DOING BED BATH AND LINEN CHANGE. NO DISTRESS NOTED. SIDE RAILS ARE UP X 2. BED IS LOW. CALL LIGHT IS IN REACH.
[2016-06-02 05:00] VITALS: BP 132/68
[2016-06-02 06:08] LABS: HEMATOCRIT 24.6 % (36.0-48.0); HEMOGLOBIN 8.3 g/dL (12-16); MCH 29.7 pg (26.0-34.0); MCHC 33.7 g/dL (31.0-37.0); MCV 88.2 fL (80.0-100.0); MEAN PLATELET VOLUME 10.9 fL (7.4-10.4); RBC 2.79 10x6/uL (4.00-5.40); RDW 15.4 % (11.5-14.5); WBC 2.6 10x3/uL (4.8-10.8)
[2016-06-02 06:22] LABS: PLATELET COUNT 53 10x3/uL (130-400)
[2016-06-02 07:06] LABS: ALKALINE PHOSPHATASE 129 U/L (46-116); BILIRUBIN - TOTAL 0.71 mg/dL (0.2-1.3); CALC OSMOLALITY 269 mosm/kg (275-300); CALCIUM 8.4 mg/dL (8.5-10.1); CARBON DIOXIDE 27.6 mmol/L (21.0-32.0); CHLORIDE - SERUM 101 mmol/L (98-107); CREATININE - SERUM 0.6 mg/dL (0.6-1.3); GLUCOSE 83 mg/dL (74-106); MAGNESIUM - SERUM 1.9 mg/dL (1.8-2.4); POTASSIUM - SERUM 3.9 mmol/L (3.5-5.1); PROTEIN - SERUM 5.2 g/dL (6.4-8.2); SODIUM 135 mmol/L (136-145); UREA NITROGEN 15 mg/dL (7-18); eGFR NON AFRICAN AMERICAN > 90 mL/min (90-120)
[2016-06-02 07:07] LABS: ALT (SGPT) 17 U/L (10-68)
[2016-06-02 07:18] LABS: EOSINOPHILS 1 % (0-7); LYMPHOCYTES 35 % (15-50); MONOCYTES 8 % (2-11); NEUTROPHILS 47 % (40-80)
[2016-06-02 07:19] LABS: ANISOCYTOSIS OCC; PLATELET ESTIMATE DECREASED
[2016-06-02 08:47] VITALS: BP 122/72
[2016-06-02 12:30] VITALS: BP 130/76
[2016-06-02 17:29] VITALS: BP 152/86
--- NOTE | 2016-06-02 19:50 | NUR ---
REPORT RECEIVED AND CARE ASSUMED. SHIFT ASSESSMENT COMPLETED. SEE FLOW SHEETS FOR DETAILS. SIDE RAILS UP X 2. BED IS IN LOWEST POSITION. CALL LIGHT IS IN EASY REACH. WILL CONTINUE TO MONITOR.
[2016-06-02 21:00] VITALS: BP 138/81
[2016-06-03] VITALS (7 sets, daily range): BP systolic 132–158; BP diastolic 71–91
[2016-06-03 05:27] LABS: BASOPHILS 0 % (0.0-2.0); EOSINOPHILS 1.2 % (0-7); HEMOGLOBIN 8.3 g/dL (12-16); IMMATURE GRANULOCYTES 1.6 % (0-5); LYMPHOCYTES 20.1 % (15-50); MCH 29.4 pg (26.0-34.0); MCHC 33.2 g/dL (31.0-37.0); MCV 88.7 fL (80.0-100.0); MEAN PLATELET VOLUME 10.6 fL (7.4-10.4); MONOCYTES 16.5 % (2-11); NEUTROPHILS 60.6 % (40-80); RBC 2.82 10x6/uL (4.00-5.40); RDW 15.8 % (11.5-14.5); WBC 2.5 10x3/uL (4.8-10.8)
[2016-06-03 05:51] LABS: PLATELET COUNT 42 10x3/uL (130-400)
[2016-06-03 05:56] LABS: ALKALINE PHOSPHATASE 121 U/L (46-116); ALT (SGPT) 16 U/L (10-68); CALC OSMOLALITY 267 mosm/kg (275-300); CALCIUM 7.8 mg/dL (8.5-10.1); CARBON DIOXIDE 25.6 mmol/L (21.0-32.0); CHLORIDE - SERUM 101 mmol/L (98-107); CREATININE - SERUM 0.5 mg/dL (0.6-1.3); GLUCOSE 84 mg/dL (74-106); MAGNESIUM - SERUM 1.9 mg/dL (1.8-2.4); POTASSIUM - SERUM 3.7 mmol/L (3.5-5.1); PROTEIN - SERUM 5.1 g/dL (6.4-8.2); SODIUM 134 mmol/L (136-145); UREA NITROGEN 15 mg/dL (7-18); eGFR NON AFRICAN AMERICAN > 90 mL/min (90-120)
--- NOTE | 2016-06-03 07:49 | NUR ---
received pt report. will continue plan of care. no other needs at this time. will continue to monitor.
--- NOTE | 2016-06-03 09:52 | NUR ---
PT IS ALERT. ASSESSMENT DONE PER FLOWSHEET. NO CO PAIN AT THISITME. WILL CONTINUE TO MONTIOR.
--- NOTE | 2016-06-03 13:00 | NUR ---
PT SHOWS NO SS OF DISTRESS WILL CONTINUE TO MONITOR.
[2016-06-04 01:00] VITALS: BP 152/88
[2016-06-04 02:00] VITALS: BP 152/88
--- NOTE | 2016-06-04 04:01 | NUR ---
ASSESSED AT THE BEGINNING OF THE SHIFT. PT IS ALERT AND ORIENTED, ABLE TO VERBALIZE NEEDS. SHE IS IN ISOLATION FOR C-DIFF AND WE ARE ASSISTING HER WITH TURNING AND REPOSITIONING FOR COMFORT. SHE ASKED FOR PAIN MEDS FOR HER LEGS IN THE EARLY EVENING BUT THEN REFUSED NORCO AND ASKED FOR TYLENOL. SHE HAS BEEN AWAKE ALL EVENING AND WAS READING [employer] THE LAST TIME WE WERE IN THERE. THE BED IS LOW, RAILS UP X'S 2 WITH THE CALL LIGHT AT HAND.
[2016-06-04 06:55] LABS: BASOPHILS 0.4 % (0.0-2.0); EOSINOPHILS 1.1 % (0-7); IMMATURE GRANULOCYTES 4.2 % (0-5); LYMPHOCYTES 17.5 % (15-50); MCH 30.3 pg (26.0-34.0); MCHC 34.1 g/dL (31.0-37.0); MEAN PLATELET VOLUME 10.5 fL (7.4-10.4); MONOCYTES 16.5 % (2-11); NEUTROPHILS 60.3 % (40-80); RDW 15.2 % (11.5-14.5); WBC 2.9 10x3/uL (4.8-10.8)
--- NOTE | 2016-06-04 07:00 | NUR ---
REPORT RECIEVED ASSUMED CARE. PATIENT IN BED WITH IV INTACT. NO COMPLAINTS. CALL LIGHT WITHIN REACH.
[2016-06-04 07:03] LABS: HEMATOCRIT 32.3 % (36.0-48.0); RBC 3.63 10x6/uL (4.00-5.40)
[2016-06-04 07:04] LABS: PLATELET COUNT 27 10x3/uL (130-400)
[2016-06-04 07:27] LABS: ALBUMIN 3.3 g/dL (3.4-5.0); ALKALINE PHOSPHATASE 116 U/L (46-116); ALT (SGPT) 18 U/L (10-68); CALC OSMOLALITY 271 mosm/kg (275-300); CALCIUM 7.8 mg/dL (8.5-10.1); CARBON DIOXIDE 25.8 mmol/L (21.0-32.0); CHLORIDE - SERUM 102 mmol/L (98-107); CREATININE - SERUM 0.6 mg/dL (0.6-1.3); GLUCOSE 91 mg/dL (74-106); MAGNESIUM - SERUM 1.8 mg/dL (1.8-2.4); POTASSIUM - SERUM 3.5 mmol/L (3.5-5.1); PROTEIN - SERUM 5.3 g/dL (6.4-8.2); SODIUM 136 mmol/L (136-145); UREA NITROGEN 12 mg/dL (7-18); eGFR NON AFRICAN AMERICAN > 90 mL/min (90-120)
[2016-06-04 08:38] VITALS: BP 150/73
[2016-06-04 11:56] VITALS: BP 153/93
--- NOTE | 2016-06-04 12:05 | NUR ---
NUTRITION MONITORING & EVAL CHART REVIEWED, PT REMAINS IN ISOLATION. BLAND/GI DIET, ONLY 25% INTAKE BREAKFAST. RD FOLLOWING
--- NOTE | 2016-06-04 12:40 | NUR ---
RESUME PLAN OF CARE. REPORT FROM SENAIT GRIFFITH. ALERT AND ORIENTED X4. SITTING UP IN CHAIR. DENIES SOB OR PAIN. IV INFUSING LT FA ORDERED. CONTINUE PLAN OF CARE AND SAFETY PRECAUTIONS.
--- NOTE | 2016-06-04 12:51 | NUR ---
REPORT GIVEN TO BILL SAPP.
[2016-06-04 15:41] VITALS: BP 143/85
[2016-06-04 20:00] VITALS: BP 149/81
[2016-06-05] VITALS: BP 146/72
[2016-06-05 04:00] VITALS: BP 134/62
[2016-06-05 05:39] LABS: BASOPHILS 0.3 % (0.0-2.0); EOSINOPHILS 0.7 % (0-7); HEMATOCRIT 30.2 % (36.0-48.0); IMMATURE GRANULOCYTES 5.4 % (0-5); LYMPHOCYTES 16.6 % (15-50); MCH 29.9 pg (26.0-34.0); MCHC 33.1 g/dL (31.0-37.0); MCV 90.1 fL (80.0-100.0); MEAN PLATELET VOLUME 10.1 fL (7.4-10.4); MONOCYTES 18.6 % (2-11); NEUTROPHILS 58.4 % (40-80); RBC 3.35 10x6/uL (4.00-5.40); RDW 15.6 % (11.5-14.5)
[2016-06-05 05:42] LABS: PLATELET COUNT 23 10x3/uL (130-400)
[2016-06-05 06:00] LABS: ALBUMIN 3.2 g/dL (3.4-5.0); ALKALINE PHOSPHATASE 101 U/L (46-116); ALT (SGPT) 15 U/L (10-68); BILIRUBIN - TOTAL 0.86 mg/dL (0.2-1.3); CALC OSMOLALITY 272 mosm/kg (275-300); CALCIUM 8.2 mg/dL (8.5-10.1); CARBON DIOXIDE 24.7 mmol/L (21.0-32.0); CHLORIDE - SERUM 105 mmol/L (98-107); CREATININE - SERUM 0.6 mg/dL (0.6-1.3); GLUCOSE 96 mg/dL (74-106); MAGNESIUM - SERUM 1.9 mg/dL (1.8-2.4); POTASSIUM - SERUM 3.9 mmol/L (3.5-5.1); PROTEIN - SERUM 5.2 g/dL (6.4-8.2); SODIUM 136 mmol/L (136-145); eGFR NON AFRICAN AMERICAN > 90 mL/min (90-120)
[2016-06-05 06:07] LABS: UREA NITROGEN 16 mg/dL (7-18)
--- NOTE | 2016-06-05 07:00 | NUR ---
REPORT RECIEVED ASSUMED CARE. PATIENT IN BED WITH IV INTACT. NO COMPLAINTS. CALL LIGHT WITHIN REACH.
[2016-06-05 08:38] VITALS: BP 143/76
[2016-06-05 12:32] VITALS: BP 153/74
[2016-06-05 15:58] VITALS: BP 151/94
--- NOTE | 2016-06-05 16:25 | NUR ---
PATIENT PLATELETS STARTED AT THIS TIME. VS STABLE. IV INTACT. CALL LIGHT WITHIN REACH.
--- NOTE | 2016-06-05 16:45 | NUR ---
PATIENT PLATELETS FINISHED. VS STABLE. NO COMPLAINTS AT THIS TIME. IV INTACT. PROCAL RESTARTED. CALL LIGHT WITHIN REACH.
[2016-06-05 20:00] VITALS: BP 143/86
[2016-06-06 04:00] VITALS: BP 145/89
[2016-06-06 05:55] LABS: BASOPHILS 0.6 % (0.0-2.0); EOSINOPHILS 1.2 % (0-7); HEMATOCRIT 34.7 % (36.0-48.0); HEMOGLOBIN 11.7 g/dL (12-16); IMMATURE GRANULOCYTES 7.2 % (0-5); MCH 30.8 pg (26.0-34.0); MCHC 33.7 g/dL (31.0-37.0); MCV 91.3 fL (80.0-100.0); MEAN PLATELET VOLUME 10.8 fL (7.4-10.4); MONOCYTES 13.7 % (2-11); NEUTROPHILS 60.3 % (40-80); RDW 16.1 % (11.5-14.5); WBC 3.4 10x3/uL (4.8-10.8)
[2016-06-06 06:01] LABS: PLATELET COUNT 34 10x3/uL (130-400)
[2016-06-06 06:18] LABS: ALBUMIN 3.7 g/dL (3.4-5.0); ALKALINE PHOSPHATASE 113 U/L (46-116); BILIRUBIN - TOTAL 0.98 mg/dL (0.2-1.3); CALC OSMOLALITY 271 mosm/kg (275-300); CALCIUM 8.6 mg/dL (8.5-10.1); CARBON DIOXIDE 27.1 mmol/L (21.0-32.0); CHLORIDE - SERUM 102 mmol/L (98-107); CREATININE - SERUM 0.6 mg/dL (0.6-1.3); GLUCOSE 85 mg/dL (74-106); POTASSIUM - SERUM 3.8 mmol/L (3.5-5.1); PROTEIN - SERUM 6.2 g/dL (6.4-8.2); SODIUM 136 mmol/L (136-145); UREA NITROGEN 15 mg/dL (7-18); eGFR NON AFRICAN AMERICAN > 90 mL/min (90-120)
[2016-06-06 06:22] LABS: ALT (SGPT) 21 U/L (10-68)
--- NOTE | 2016-06-06 07:00 | NUR ---
REPORT RECIEVED ASSUMED CARE. PATIENT IN BED WITH IV INTACT. NO COMPLAINTS AT THIS TIME. CALL LIGHT WITHIN REACH.
[2016-06-06 09:04] VITALS: BP 152/103
--- NOTE | 2016-06-06 11:30 | NUR ---
PATIENT UP TO CHAIR WITH PT.
[2016-06-06 13:01] VITALS: BP 159/80
--- NOTE | 2016-06-06 17:24 | NUR ---
PATIENT IN BED WITH IV INTACT AT THIS TIME. NO COMPLAINTS. PARADA INTACT. LAYING ON BACK WATCHING TV. CALL LIGHT WITHIN REACH.
[2016-06-06 18:10] VITALS: BP 140/90
--- NOTE | 2016-06-06 20:45 | NUR ---
PATIENT RESTING IN BED WITHOUT SIGNS OF DISTRESS NOTED. COUGHING FREQUENTLY. PRN ROBITUSSIN GIVEN ORDERED. SCHEDULED MEDS GIVEN. DENIES ANY NEEDS AT THIS TIME. BED LOW. CALL LIGHT IN REACH.
[2016-06-06 21:00] VITALS: BP 146/99
[2016-06-07 02:00] VITALS: BP 145/78
--- NOTE | 2016-06-07 02:30 | NUR ---
PT IN BED WITH NO NEEDS. LEFT WRIST PATENT AND FLUIDS RUNNING PER ORDER. PARADA IS DRAINING URINE BY GRAVITY. ISOLATION PRECAUTIONS IN PLACE. 1ST STEP OVERLAY. SIDE RAILS ARE UP X 2. BED IS LOW. CALL LIGHT IS IN REACH.
[2016-06-07 05:19] LABS: BASOPHILS 0.5 % (0.0-2.0); EOSINOPHILS 1.6 % (0-7); HEMATOCRIT 33.2 % (36.0-48.0); HEMOGLOBIN 10.9 g/dL (12-16); IMMATURE GRANULOCYTES 5.4 % (0-5); LYMPHOCYTES 18.6 % (15-50); MCH 29.8 pg (26.0-34.0); MCHC 32.8 g/dL (31.0-37.0); MCV 90.7 fL (80.0-100.0); MEAN PLATELET VOLUME 10.5 fL (7.4-10.4); MONOCYTES 11.9 % (2-11); RBC 3.66 10x6/uL (4.00-5.40); RDW 15.9 % (11.5-14.5); WBC 3.9 10x3/uL (4.8-10.8)
[2016-06-07 05:23] LABS: PLATELET COUNT 30 10x3/uL (130-400)
[2016-06-07 05:31] LABS: ALBUMIN 3.5 g/dL (3.4-5.0); ALKALINE PHOSPHATASE 97 U/L (46-116); ALT (SGPT) 19 U/L (10-68); BILIRUBIN - TOTAL 0.81 mg/dL (0.2-1.3); CALC OSMOLALITY 270 mosm/kg (275-300); CALCIUM 8.3 mg/dL (8.5-10.1); CARBON DIOXIDE 24.1 mmol/L (21.0-32.0); CHLORIDE - SERUM 101 mmol/L (98-107); CREATININE - SERUM 0.5 mg/dL (0.6-1.3); GLUCOSE 90 mg/dL (74-106); POTASSIUM - SERUM 3.3 mmol/L (3.5-5.1); PROTEIN - SERUM 5.5 g/dL (6.4-8.2); SODIUM 135 mmol/L (136-145); UREA NITROGEN 16 mg/dL (7-18); eGFR NON AFRICAN AMERICAN > 90 mL/min (90-120)
[2016-06-07 08:30] VITALS: BP 113/79
[2016-06-07 12:14] VITALS: BP 128/71
[2016-06-07 16:54] VITALS: BP 149/91
--- NOTE | 2016-06-07 19:20 | NUR ---
PATIENT RESTING IN BED WATCHING TV. NO SIGNS OF DISTRESS NOTED. ASSISTED WITH BED KUMAR. NO OTHER NEEDS VOICED AT THIS TIME. BED LOW. CALL LIGHT IN REACH.
[2016-06-07 21:00] VITALS: BP 148/78
[2016-06-08 00:21] VITALS: BP 176/103
--- NOTE | 2016-06-08 02:00 | NUR ---
RESTING WITH EYES CLOSED, RESP WITH EASE, SAFETY AND CONTACT ISOLATION PRECAUTIONS IN PLACE, CL IN REACH
[2016-06-08 05:26] LABS: BASOPHILS 0.9 % (0.0-2.0); EOSINOPHILS 2.9 % (0-7); HEMATOCRIT 34.1 % (36.0-48.0); HEMOGLOBIN 11.2 g/dL (12-16); IMMATURE GRANULOCYTES 8.1 % (0-5); LYMPHOCYTES 19.2 % (15-50); MCH 29.8 pg (26.0-34.0); MCHC 32.8 g/dL (31.0-37.0); MCV 90.7 fL (80.0-100.0); MEAN PLATELET VOLUME 10.2 fL (7.4-10.4); MONOCYTES 10.2 % (2-11); NEUTROPHILS 58.7 % (40-80); RBC 3.76 10x6/uL (4.00-5.40); RDW 15.8 % (11.5-14.5); WBC 3.4 10x3/uL (4.8-10.8)
[2016-06-08 05:42] LABS: PLATELET COUNT 29 10x3/uL (130-400)
[2016-06-08 05:55] LABS: CALC OSMOLALITY 275 mosm/kg (275-300); CALCIUM 8.6 mg/dL (8.5-10.1); CARBON DIOXIDE 23.9 mmol/L (21.0-32.0); CHLORIDE - SERUM 102 mmol/L (98-107); CREATININE - SERUM 0.5 mg/dL (0.6-1.3); GLUCOSE 95 mg/dL (74-106); POTASSIUM - SERUM 3.3 mmol/L (3.5-5.1); SODIUM 137 mmol/L (136-145); UREA NITROGEN 17 mg/dL (7-18); eGFR NON AFRICAN AMERICAN > 90 mL/min (90-120)
--- NOTE | 2016-06-08 07:00 | NUR ---
PATIENT RECEIVED ALERT IN MID ARITA POSITION. RESPIRATIONS EVEN AND UNLABORED. SIDE RAILS UP X2. BED IN LOW POSITION. CALL LIGHT IN REACH.
[2016-06-08 07:59] VITALS: BP 140/80
--- NOTE | 2016-06-08 09:05 | NUR ---
PATIENT ALERT IN BED. NO SIGNS OF DISTRESS NOTED. SCHEDULED MEDICATION ADMINISTERED. SIDE RAILS UP X2. BED IN LOW POSITION. CALL LIGHT IN REACH.
--- NOTE | 2016-06-08 10:26 | NUR ---
NUTRITION MONITORING & EVAL PT REMAINS IN ISOLATION. BLAND GI SOFT DIET. NPO AFTER MIDNITE FOR AM PROCEDURE. RD FOLLOWING
[2016-06-08 12:18] VITALS: BP 136/77
--- NOTE | 2016-06-08 12:27 | NUR ---
PATIENT SITTING UP IN CHAIR AT BEDSIDE WITH FAMILY PRESENT. DENIES NEEDS. CALL LIGHT IN REACH.
--- NOTE | 2016-06-08 14:00 | NUR ---
SITTING UP IN CHAIR ALERT. NO SIGNS OF DISTRESS NOTED. GUEST AT BEDSIDE. SCHEDULED MEDICATION ADMINISTERED. CALL LIGHT IN REACH.
[2016-06-08 16:18] VITALS: BP 112/60
--- NOTE | 2016-06-08 17:00 | NUR ---
PATIENT ALERT IN BED WITH GUEST AT BEDSIDE. SIDE RAILS UP X2. BED IN LOW POSITION. CALL LIGHT IN REACH.
--- NOTE | 2016-06-08 19:45 | NUR ---
PATIENT RESTING IN BED WATCHING TV. NO SIGNS OF DISTRESS NOTED. RESPIRATIONS EVEN AND UNLABORED. DENIES ANY NEEDS AT THIS TIME. BED LOW. CALL LIGHT IN REACH.
[2016-06-08 22:00] VITALS: BP 146/70
[2016-06-09 05:30] LABS: BASOPHILS 0.9 % (0.0-2.0); EOSINOPHILS 1.5 % (0-7); HEMATOCRIT 34.8 % (36.0-48.0); HEMOGLOBIN 11.2 g/dL (12-16); IMMATURE GRANULOCYTES 8.2 % (0-5); MCH 29.6 pg (26.0-34.0); MCHC 32.2 g/dL (31.0-37.0); MCV 92.1 fL (80.0-100.0); MONOCYTES 9.1 % (2-11); NEUTROPHILS 59.3 % (40-80); RBC 3.78 10x6/uL (4.00-5.40); RDW 15.8 % (11.5-14.5); WBC 3.3 10x3/uL (4.8-10.8)
[2016-06-09 05:40] LABS: PLATELET COUNT 35 10x3/uL (130-400)
[2016-06-09 06:02] LABS: ALBUMIN 3.4 g/dL (3.4-5.0); ALKALINE PHOSPHATASE 93 U/L (46-116); ALT (SGPT) 17 U/L (10-68); CALC OSMOLALITY 272 mosm/kg (275-300); CALCIUM 8.3 mg/dL (8.5-10.1); CARBON DIOXIDE 25.2 mmol/L (21.0-32.0); CHLORIDE - SERUM 101 mmol/L (98-107); CREATININE - SERUM 0.6 mg/dL (0.6-1.3); GLUCOSE 96 mg/dL (74-106); MAGNESIUM - SERUM 1.9 mg/dL (1.8-2.4); PHOSPHOROUS 2.6 mg/dL (2.5-4.9); SODIUM 135 mmol/L (136-145); UREA NITROGEN 21 mg/dL (7-18); eGFR NON AFRICAN AMERICAN > 90 mL/min (90-120)
--- NOTE | 2016-06-09 07:00 | NUR ---
PATIENT RECEIVED ALERT IN LOW ARITA POSITION. NO SIGNS OF DISTRESS NOTED. ENEMAS ADMINISTERED PER ORDERS. TOLERATED WELL. SIDE RAILS UP X2. BED IN LOW POSITION. CALL LIGHT IN REACH.
[2016-06-09 08:13] VITALS: BP 147/91
--- NOTE | 2016-06-09 09:15 | NUR ---
ALERT IN BED. SCHEDULED LASIX ADMINISTERED. ENEMAS COMPLETE PER ORDER. PATIENT TOLERATED WELL. SIDE RAILS UP X2. BED IN LOW POSITION. CALL LIGHT IN REACH.
--- NOTE | 2016-06-09 11:26 | NUR ---
PATIENT OFF FLOOR TO GI LAB VIA BED
--- NOTE | 2016-06-09 13:25 | NUR ---
PATIENT BACK TO ROOM FROM GI LAB VIA BED. NO SIGNS OF DISTRESS NOTED. A/O X4. LINEN CHANGE COMPLETE. POSITIONED FOR COMFORT. SIDE RAILS UP X2. BED IN LOW PSOITION. CALL LIGHT IN REACH.
--- NOTE | 2016-06-09 14:30 | NUR ---
PATIENT ALERT IN BED. RESPIRATIONS EVEN AND UNLABORED. SCHEDULED MEDICATION ADMINISTERED. SIDE RAILS UP X2. BED IN LOW POSITION. CALL LIGHT IN REACH .
[2016-06-09 15:52] VITALS: BP 145/95
--- NOTE | 2016-06-09 16:25 | NUR ---
PATIENT IN MID ARITA POSITION RESTING WITH EYES CLOSED. RESPIRATIONS EVEN AND UNLABORED. WAKES EASY. SCHEDULED MEDICATION ADMINISTERED. FAMILY AT BEDSIDE. SIDE RAILS UP X2. BED IN LOW POSITION. CALL LIGHT IN REACH.
--- NOTE | 2016-06-09 18:15 | NUR ---
ALERT IN BED. CONSENT OBTAINED FOR CT GUIDED BONE MARROW BIOPSY. DENIES NEEDS. SIDE RAILS UP X2. BED IN LOW POSITION. CALL LIGHT IN REACH.
--- NOTE | 2016-06-09 19:00 | NUR ---
BEDSIDE REPORT RECEIVED AND CARE OF PT ASSUMED. PT LYING IN SEMI ARITA'S POSITION WITH EYES CLOSED AND UNLABORED BREATHING. IV IN LEFT WRIST PATENT WITH PROCALAMINE INFUSING AT 40 ML / HR. PARADA CATHETER DRAINING TO GRAVITY WITH YELLOW URINE IN COLLECTION BAG. WILL MONITOR CLOSLEY FOR NEEDS.
--- NOTE | 2016-06-09 20:40 | NUR ---
HS MEDICATIONS GIVEN. NO OTHER NEEDS VOICED AT THIS ASSESSMENT. WILL CONTINUE TO MONITOR FOR NEEDS.
[2016-06-09 21:18] VITALS: BP 148/58
[2016-06-10] VITALS (12 sets, daily range): BP systolic 98–150; BP diastolic 54–98
[2016-06-10 05:49] LABS: BASOPHILS 0.7 % (0.0-2.0); EOSINOPHILS 0.7 % (0-7); HEMATOCRIT 34.4 % (36.0-48.0); HEMOGLOBIN 11.2 g/dL (12-16); IMMATURE GRANULOCYTES 6.1 % (0-5); MCH 29.7 pg (26.0-34.0); MCHC 32.6 g/dL (31.0-37.0); MCV 91.2 fL (80.0-100.0); MEAN PLATELET VOLUME 10.1 fL (7.4-10.4); MONOCYTES 9.1 % (2-11); NEUTROPHILS 65.4 % (40-80); RBC 3.77 10x6/uL (4.00-5.40); RDW 15.9 % (11.5-14.5)
[2016-06-10 05:59] LABS: APTT 34.7 SECONDS (22.8-39.4); INR 1.22 (0.85-1.17); PROTIME 15.3 SECONDS (11.6-15.0)
[2016-06-10 06:26] LABS: ALBUMIN 3.4 g/dL (3.4-5.0); ALKALINE PHOSPHATASE 97 U/L (46-116); ALT (SGPT) 18 U/L (10-68); BILIRUBIN - TOTAL 0.68 mg/dL (0.2-1.3); CALC OSMOLALITY 271 mosm/kg (275-300); CALCIUM 8.9 mg/dL (8.5-10.1); CARBON DIOXIDE 23.6 mmol/L (21.0-32.0); CHLORIDE - SERUM 100 mmol/L (98-107); CREATININE - SERUM 0.5 mg/dL (0.6-1.3); GLUCOSE 106 mg/dL (74-106); POTASSIUM - SERUM 3.7 mmol/L (3.5-5.1); PROTEIN - SERUM 5.9 g/dL (6.4-8.2); SODIUM 134 mmol/L (136-145); UREA NITROGEN 24 mg/dL (7-18); eGFR NON AFRICAN AMERICAN > 90 mL/min (90-120)
[2016-06-10 06:32] LABS: PLATELET COUNT 39 10x3/uL (130-400); WBC 5.4 10x3/uL (4.8-10.8)
--- NOTE | 2016-06-10 07:35 | NUR ---
PATIENT RECEIVED ALERT IN MID ARITA POSITION. RESPIRATIONS EVEN AND UNLABORED. SIDE RAILS UP X2. BED IN LOW POSITION. CALL LIGHT IN REACH.
--- NOTE | 2016-06-10 08:06 | NUR ---
PATIENT IN MID ARITA POSITION RESTING WITH EYES CLOSED. RESPIRATIONS EVEN AND UNLABORED. WAKES EASY. SCHEDULED IV MEDICATION ADMINISTERED. PO MEDICATION HELD DUE TO NPO STATUS. SIDE RAILS UP X2. BED IN LOW POSITION. CALL LIGHT IN REACH. DENIES NEEDS.
--- NOTE | 2016-06-10 10:43 | NUR ---
PATIENT OFF FLOOR TO CT VIA BED FOR PROCEDURE
--- NOTE | 2016-06-10 11:45 | NUR ---
PATIENT BACK TO ROOM FROM PROCEDURE VIA BED. A/O X4. VITAL SIGNS STABLE. FAMILY PRESENT. SIDE RAILS UP X2. BED IN LOW POSITION. CALL LIGHT IN REACH.
--- NOTE | 2016-06-10 14:40 | NUR ---
ALERT IN BED RESTING QUIETLY. VITAL SIGNS STABLE. DENIES NEEDS. SIDE RAILS UP X2. BED IN LOW POSITION. CALL LIGHT IN REACH.
--- NOTE | 2016-06-10 16:33 | NUR ---
ALERT IN BED READINGBOOK. NO SIGNS OF DISTRESS NOTED. SIDE RAILS UP X2. BED IN LOW POSITION. CALL LIGHT IN REACH.
--- NOTE | 2016-06-10 17:31 | NUR ---
ALERT IN BED WITH FAMILY PRESENT. NO SIGNS OF DISTRESS NOTED. DENIES NEEDS. SIDE RAILS UP X2. BED IN LOW POSITION. CALL LIGHT IN REACH.
--- NOTE | 2016-06-10 19:49 | PRO ---
PATIENT:MARTHA KENNY MEDICAL RECORD: [id number] : 30 LOCATION:D.[id number] ADMISSION DATE: 05/18/16 PROCEDURE PERFORMED BY: ELBERT HOLDEN MD DATE OF PROCEDURE: 06/09/2016 HEALTH RESEARCHER: Elbert Holden MD PROCEDURE: EGD and colonoscopy. INDICATION: The patient is an 86-year-old white female, admitted with severe pseudomembranous colitis. On admission, her white cell count was in the 70s. CDT stool studies were positive. She was placed on Flagyl, rifampin and oral vancomycin and gradually has had improved. Her white cell count normalizing around 4000. However, she still continued to have some diarrhea, 5-6 stools per day, despite this and even though her stools now negative for CDT, she is at high risk for recurrence and possibly has some residual infection present. Because of this, she is now for a fecal microbiota transplant to help with this in severe infection. I also wanted to see if her colon looks involved with pseudomembranous colitis endoscopically. We decided to place this fecal transplant, both in the small bowel and in the colon to increase the chance of success. PREMEDICATION: Taper anesthesia. INSTRUMENT: Olympus video gastroscope and then adjustable colonoscope. FINDINGS: Her EGD was performed first. The gastroscope was passed through the oropharynx to the second portion of the duodenum without difficulty. The esophagus, stomach, and duodenum were all basically normal other than scant gastritis. I then just placed the scope as far as I could take it to the mid duodenum and injected 60 cc of fecal transplant material. This was done through the scope obviously. I then stopped that procedure and began her colonoscopy. The colonoscope was actually passed to the terminal ileum without much difficulty, evidence of mild looping in the colon. Prep was fair. The exam was remarkable for mild diffuse colitis, especially in the right half of the colon, but just a few scattered pseudomembranous membranes seen. I went ahead and injected 120 cc of fecal transplant material starting at the terminal ileum and extended to roughly the mid transverse colon. The rest of exam was normal. The patient tolerated the procedure well without any immediate complication. IMPRESSION: 1. Minimal gastritis. 2. Mild diffuse colitis with mild pseudomembranous colitis present on her colonoscopy with an ileoscopy, now status post fecal transplantation in both the duodenum and in the proximal and mid colon. RECOMMENDATIONS: 1. Stop all of her antibiotics. 2. Observe. 3. Advance diet as tolerated. TRANSINT:[id number] Voice Confirmation ID: [id number] DOCUMENT ID: [id number] PROCEDURE NOTE [id number] MARTHA KENNY JOHN MD at 1949 CC: SCOTT SUÁREZ MD, ARABELLA CARTY MD, TENNILLE SYLVESTER MD, [facility], [id number] and ELBERT ABDUL MD DICTATION DATE: 06/09/16 1331 WEBBING TACKER: 06/09/16 1427 ADM IN [facility] [address] [place] [address]
[2016-06-11 01:00] VITALS: BP 142/70
[2016-06-11 05:00] VITALS: BP 149/78
[2016-06-11 06:57] LABS: BASOPHILS 0.8 % (0.0-2.0); EOSINOPHILS 0.3 % (0-7); HEMATOCRIT 32.4 % (36.0-48.0); HEMOGLOBIN 10.5 g/dL (12-16); IMMATURE GRANULOCYTES 4.2 % (0-5); LYMPHOCYTES 24.4 % (15-50); MCH 29.8 pg (26.0-34.0); MCHC 32.4 g/dL (31.0-37.0); MEAN PLATELET VOLUME 10.7 fL (7.4-10.4); MONOCYTES 12.2 % (2-11); NEUTROPHILS 58.1 % (40-80); RBC 3.52 10x6/uL (4.00-5.40)
[2016-06-11 06:58] LABS: PLATELET COUNT 46 10x3/uL (130-400); WBC 3.9 10x3/uL (4.8-10.8)
[2016-06-11 07:37] LABS: ALBUMIN 3.3 g/dL (3.4-5.0); ALKALINE PHOSPHATASE 85 U/L (46-116); ALT (SGPT) 16 U/L (10-68); BILIRUBIN - TOTAL 0.69 mg/dL (0.2-1.3); CALC OSMOLALITY 274 mosm/kg (275-300); CALCIUM 8.9 mg/dL (8.5-10.1); CARBON DIOXIDE 25.4 mmol/L (21.0-32.0); CHLORIDE - SERUM 100 mmol/L (98-107); CREATININE - SERUM 0.6 mg/dL (0.6-1.3); GLUCOSE 100 mg/dL (74-106); POTASSIUM - SERUM 3.5 mmol/L (3.5-5.1); PROTEIN - SERUM 5.9 g/dL (6.4-8.2); SODIUM 135 mmol/L (136-145); UREA NITROGEN 27 mg/dL (7-18); eGFR NON AFRICAN AMERICAN > 90 mL/min (90-120)
--- NOTE | 2016-06-11 08:00 | NUR ---
PATIENT ALERRT/ORIENT X4. CALL LIGHT WITHIHN REACH. VOICES NO NEEDS AT THIS TIME. REMAINS IN CONTACT ISOLATION FOR C-DIFF
[2016-06-11 08:32] VITALS: BP 151/87
--- NOTE | 2016-06-11 10:45 | NUR ---
PATIENT HAVING MODERATE AMOUNT OF WATERY LOOSE STOOLS. NURSE ASST HELPED PATIENT WITH A BED BATH
--- NOTE | 2016-06-11 10:45 | NUR ---
Rehab Prescreening Consult recieved and the patient was visited. She meets criteria for acute rehab and agrees she needs to have therapy prior to going home. She says she has not been out of bed for 2 days due to a procedure being done. We will see how she does with therapy this weekend and plan to accept her when she and the physician feel she can participate in 3 hrs of therapy a day 5 days a week. The [facility] has been made aware. Ml Howell RN Clinical Liaison, rehab
[2016-06-11 11:50] VITALS: BP 150/80
--- NOTE | 2016-06-11 12:05 | NUR ---
NUTRITION MONITORING & EVAL CHART REVIEWED. PT VISIT. REMAINS IN ISOLATION. PT REPORTS "EATING A LITTLE", "DRINKING SOME ENSURE". DTR TO BRING POTATO SOUP FROM HOME. WILL CONTINUE TO PROVIDE DIET, ENSURE. RD FOLLOWING
--- NOTE | 2016-06-11 13:00 | NUR ---
PHYSICAL THERAPY IN ROOM WITH PATIENT. GOT PATIENT UP TO A CHAIR. PATIENT DENIES ANY PAIN/DISC.
--- NOTE | 2016-06-11 14:40 | NUR ---
DR. SUÁREZ INTO SEE PATIENT. NEW ORDERS RECEIVED
[2016-06-11 16:17] VITALS: BP 148/80
--- NOTE | 2016-06-11 17:30 | NUR ---
CONSULT WITH DR. Baljeet EMANUEL. DR. EMANUEL INTO SEE PATIENT. NEW ORDERS RECEIVED
[2016-06-11 20:19] VITALS: BP 147/78
--- NOTE | 2016-06-11 20:32 | NUR ---
ASSESSED AT THIS TIME AND NO COMPLAINTS VOICED.
[2016-06-12 04:00] VITALS: BP 182/97
[2016-06-12 05:25] LABS: BASOPHILS 0.6 % (0.0-2.0); EOSINOPHILS 1.4 % (0-7); HEMATOCRIT 31.6 % (36.0-48.0); HEMOGLOBIN 10.1 g/dL (12-16); IMMATURE GRANULOCYTES 3.4 % (0-5); LYMPHOCYTES 24.2 % (15-50); MCH 29.4 pg (26.0-34.0); MCV 92.1 fL (80.0-100.0); MEAN PLATELET VOLUME 10.8 fL (7.4-10.4); MONOCYTES 12.7 % (2-11); NEUTROPHILS 57.7 % (40-80); RBC 3.43 10x6/uL (4.00-5.40); RDW 15.6 % (11.5-14.5); WBC 3.6 10x3/uL (4.8-10.8)
[2016-06-12 05:26] LABS: PLATELET COUNT 64 10x3/uL (130-400)
[2016-06-12 05:49] LABS: ALBUMIN 3.2 g/dL (3.4-5.0); ALKALINE PHOSPHATASE 79 U/L (46-116); ALT (SGPT) 15 U/L (10-68); CALC OSMOLALITY 271 mosm/kg (275-300); CALCIUM 8.4 mg/dL (8.5-10.1); CARBON DIOXIDE 26.4 mmol/L (21.0-32.0); CHLORIDE - SERUM 100 mmol/L (98-107); GLUCOSE 107 mg/dL (74-106); POTASSIUM - SERUM 3.5 mmol/L (3.5-5.1); PROTEIN - SERUM 6.2 g/dL (6.4-8.2); SODIUM 134 mmol/L (136-145); UREA NITROGEN 23 mg/dL (7-18)
[2016-06-12 05:52] LABS: CREATININE - SERUM 0.4 mg/dL (0.6-1.3); eGFR NON AFRICAN AMERICAN > 90 mL/min (90-120)
--- NOTE | 2016-06-12 07:58 | NUR ---
AWAKE AND ALERT. ORIENTED X3. NO C/O AT THIS TIME. LUNGS HAVE FAINT CRACKLES AND DIMINISHED THROUGHOUT. NON PRODUCTIVE COUGH NOTED. SKIN IS INTACT WITHOUT REDNESS EXCEPT SMALL AREA ON RIGHT BUTTOCK WHICH HAS A DRY INTACT DRESSING IN PLACE. PATIENT IS ON FIRST STEP OVERLAY. SCD'S OFF AT THIS TIME. IV TO LEFT FOREARM IS PATENT WITHOUT REDNESS AT INSERTION SITE. DENIES NEEDS.
[2016-06-12 10:06] VITALS: BP 156/86
--- NOTE | 2016-06-12 10:30 | NUR ---
RESTING QUIETLY IN BED. DENIES NEEDS.
--- NOTE | 2016-06-12 12:30 | NUR ---
SITTING UP IN CHAIR AT BEDSIDE EATING. NO C/O AT THIS TIME. DENIES NEEDS.
[2016-06-12 13:01] VITALS: BP 137/78
--- NOTE | 2016-06-12 15:00 | NUR ---
RESTING QUIETLY IN BED. NO C/O AT THIS TIME. DENIES NEEDS.
--- NOTE | 2016-06-12 18:12 | NUR ---
ATE MOST OF A BOWL OF SOUP FRIENDS BROUGHT IN. DRINKING ENSURE AT THIS TIME. INCONTINENT LARGE AMOUNT OF LOOSE WATERY STOOL. SKIN CARE PER STAFF. REPOSITIONED FOR COMFORT. NO CHANGES NOTED. DENIES NEEDS.
[2016-06-12 18:48] VITALS: BP 156/76
[2016-06-12 20:28] VITALS: BP 182/94
--- NOTE | 2016-06-12 23:03 | NUR ---
REC'D IN BED AWAKE AND ALERT. RESP EVEN AND UNALBORED WITH NO DISTRESS NOTED. CAN VOICE NEEDS AND WANTS. TAKE ALL PO MEDS WHOLE AND WITHOUT DIFFICULTY NOTED. REMAIN ON CONTACT ISOLATION. NO C/O NOTED OR VOICED AT THIS TIME. ASSESSMENT COMPLETED. C/L IN REACH AT BEDSIDE.
[2016-06-13] VITALS (7 sets, daily range): BP systolic 141–155; BP diastolic 77–89
--- NOTE | 2016-06-13 02:00 | NUR ---
RESTING WITH EYES CLOSED, RESP WITH EASE, NO DISTRESS NOTED, CL IN REACH
--- NOTE | 2016-06-13 04:00 | NUR ---
PT IN BED WITH NO NEEDS. IV TO LEFT WRIST PATENT AND FLUIDS ARE RUNNING PER ORDER. O2 @ 2 PER NASAL CANNULA. SCD'S ON. ISOLATION PRECAUTIONS IN PLACE. SIDE RAILS ARE UP X 2. BED IS LOW. CALL LIGHT IS IN REACH.
[2016-06-13 04:51] LABS: BASOPHILS 0.5 % (0.0-2.0); EOSINOPHILS 2.2 % (0-7); HEMATOCRIT 31.9 % (36.0-48.0); HEMOGLOBIN 10.3 g/dL (12-16); IMMATURE GRANULOCYTES 3.2 % (0-5); LYMPHOCYTES 26.1 % (15-50); MCH 29.5 pg (26.0-34.0); MCHC 32.3 g/dL (31.0-37.0); MCV 91.4 fL (80.0-100.0); MEAN PLATELET VOLUME 10.5 fL (7.4-10.4); MONOCYTES 13.7 % (2-11); NEUTROPHILS 54.3 % (40-80); RBC 3.49 10x6/uL (4.00-5.40); RDW 15.6 % (11.5-14.5); WBC 3.7 10x3/uL (4.8-10.8)
[2016-06-13 04:53] LABS: PLATELET COUNT 86 10x3/uL (130-400)
[2016-06-13 05:09] LABS: ALBUMIN 3.3 g/dL (3.4-5.0); ALKALINE PHOSPHATASE 79 U/L (46-116); ALT (SGPT) 14 U/L (10-68); CALC OSMOLALITY 268 mosm/kg (275-300); CALCIUM 8.5 mg/dL (8.5-10.1); CARBON DIOXIDE 27.6 mmol/L (21.0-32.0); CHLORIDE - SERUM 98 mmol/L (98-107); CREATININE - SERUM 0.5 mg/dL (0.6-1.3); GLUCOSE 89 mg/dL (74-106); POTASSIUM - SERUM 3.4 mmol/L (3.5-5.1); PROTEIN - SERUM 6.3 g/dL (6.4-8.2); SODIUM 134 mmol/L (136-145); eGFR NON AFRICAN AMERICAN > 90 mL/min (90-120)
[2016-06-13 05:10] LABS: UREA NITROGEN 17 mg/dL (7-18)
--- NOTE | 2016-06-13 07:30 | NUR ---
AWAKE AND ALERT. ORIENTED X 3. NO C/O AT THIS TIME. LUNGS ARE DIMINISHED THROUGHOUT LUNG STRAUSS. NON PRODUCTIVE COUGH NOTED. SKIN IS INTACT WITHOUT REDNESS EXCEPT STAGE TWO TO RIGHT BUTTOCK WHICH HAS A DRY INTACT DRESSING IN PLACE. IV TO LEFT WRIST IS PATENT WITHOUT REDNESS AT INSERTION SITE. SCD'S OFF AT THIS TIME. DENIES NEEDS. PARADA PATENT WITH CLEAR YELLOW URINE.
--- NOTE | 2016-06-13 09:30 | NUR ---
TOOK AM MEDS WITHOUT DIFFICULTY. HAD COUGHING SPELL AND WAS INCONTINENT OF LOOSE WATERY STOOL. SKIN CARE PER STAFF. LINENS CHANGED.
--- NOTE | 2016-06-13 18:51 | NUR ---
ATE PART OF SUPPER. NO CHANGES NOTED. DENIES NEEDS.
--- NOTE | 2016-06-13 19:30 | NUR ---
REC'D IN BED AWAKE AND ALERT. RESP EVEN AND UNLABORED WITH NO DISTRESS NOTED. CAN EXPRESS NEEDS AND WANTS. NO C/O NOTED OR VOICED AT THIS TIME. ASSESSMENT COMPLETED.C/L IN REACH AT BEDSIDE.
[2016-06-14 05:54] VITALS: BP 143/90
[2016-06-14 06:41] LABS: BASOPHILS 0 % (0.0-2.0); EOSINOPHILS 0 % (0-7); HEMATOCRIT 31.8 % (36.0-48.0); HEMOGLOBIN 10.3 g/dL (12-16); IMMATURE GRANULOCYTES 1.9 % (0-5); LYMPHOCYTES 21.4 % (15-50); MCH 29.4 pg (26.0-34.0); MCHC 32.4 g/dL (31.0-37.0); MCV 90.9 fL (80.0-100.0); MEAN PLATELET VOLUME 10.1 fL (7.4-10.4); MONOCYTES 6.5 % (2-11); NEUTROPHILS 70.2 % (40-80); WBC 3.2 10x3/uL (4.8-10.8)
[2016-06-14 06:42] LABS: PLATELET COUNT 117 10x3/uL (130-400)
[2016-06-14 07:07] LABS: ALBUMIN 3.7 g/dL (3.4-5.0); ALKALINE PHOSPHATASE 75 U/L (46-116); ALT (SGPT) 16 U/L (10-68); CALCIUM 9.1 mg/dL (8.5-10.1); CARBON DIOXIDE 26.4 mmol/L (21.0-32.0); CHLORIDE - SERUM 99 mmol/L (98-107); CREATININE - SERUM 0.6 mg/dL (0.6-1.3); GLUCOSE 131 mg/dL (74-106); PROTEIN - SERUM 6.8 g/dL (6.4-8.2); SODIUM 135 mmol/L (136-145); eGFR NON AFRICAN AMERICAN > 90 mL/min (90-120)
[2016-06-14 07:14] LABS: CALC OSMOLALITY 274 mosm/kg (275-300); POTASSIUM - SERUM 4.2 mmol/L (3.5-5.1); UREA NITROGEN 22 mg/dL (7-18)
--- NOTE | 2016-06-14 07:30 | NUR ---
AWAKE AND ALERT. ORIENTED X3. NO C/O AT THIS TIME. LUNGS HAVE CRACKLES AND WHEEZES PREDOMINANTLY ON RIGHT SIDE. DIMINISHED THROUGHOUT. OCCASSIONALLY PRODUCTIVE COUGH NOTED. SKIN IS INTACT WITHOUT REDNESS EXCEPT SMALL STAGE 2 TO RIGHT BUTTOCK WHICH HAS A DRY INTACT DRESSING IN PLACE. IV TO LEFT WRIST PATENT WITHOUT REDNESS AT INSERTION SITE. PARADA PATENT WITH CLEAR YELLOW URINE. DENIES NEEDS.
[2016-06-14 09:23] VITALS: BP 153/95
--- NOTE | 2016-06-14 09:30 | NUR ---
TOOK AM MEDS WITHOUT DIFFICULTY. SPUTUM COLLECTED AND SENT TO LAB. DENIES NEEDS.
--- NOTE | 2016-06-14 11:10 | NUR ---
NUTRITION MONITORING & EVAL CHART REVIEWED. PT REMAINS IN ISOLATION. NURSING REPORTS PT WITH CONTINUED POOR PO INTAKE. RECEIVING PROCALAMINE @ 40 CC/HR. PROVIDES 235 KCAL, 29 GM PROTEIN PER DAY. RD FOLLOWING
[2016-06-14 12:57] VITALS: BP 133/74
--- NOTE | 2016-06-14 14:06 | NUR ---
Reviewed chart this AM for inpatient rehab. She continues to meet criteria at this times for IRF. She will be accepted when the physician feels she is medically stable for discharge to rehab. Ml Howell RN CL
[2016-06-14 16:10] VITALS: BP 153/97
--- NOTE | 2016-06-14 19:45 | NUR ---
ASSESSMENT COMPLETED, NO DISTRESS NOTED, DENIES NEEDS, FALL AND ISOLATION PRECAUTIONS IN PLACE, CL IN REACH, WILL MONITOR
[2016-06-14 21:00] VITALS: BP 152/86
--- NOTE | 2016-06-14 22:08 | NUR ---
MEDS GIVEN PER MAR, MERLENE WELL, DENIES NEEDS, FALL AND CONTACT PRECAUTIONS IN PLACE, CL IN REACH
[2016-06-15 01:00] VITALS: BP 149/93; BP 152/103
--- NOTE | 2016-06-15 03:50 | NUR ---
RESTING WITH EYES CLOSED, RESP WITH EASE, NO DISTRESS NOTED, CL IN REACH
[2016-06-15 05:00] VITALS: BP 150/83
[2016-06-15 05:54] LABS: BASOPHILS 0.2 % (0.0-2.0); EOSINOPHILS 0 % (0-7); HEMOGLOBIN 10.3 g/dL (12-16); IMMATURE GRANULOCYTES 2.5 % (0-5); LYMPHOCYTES 14.8 % (15-50); MCH 29.3 pg (26.0-34.0); MCHC 32.2 g/dL (31.0-37.0); MCV 91.2 fL (80.0-100.0); MONOCYTES 8.7 % (2-11); NEUTROPHILS 73.8 % (40-80); PLATELET COUNT 144 10x3/uL (130-400); RBC 3.51 10x6/uL (4.00-5.40); RDW 15.2 % (11.5-14.5); WBC 4.7 10x3/uL (4.8-10.8)
[2016-06-15 06:12] LABS: ALBUMIN 3.5 g/dL (3.4-5.0); ALKALINE PHOSPHATASE 95 U/L (46-116); ALT (SGPT) 18 U/L (10-68); CALC OSMOLALITY 276 mosm/kg (275-300); CALCIUM 9.4 mg/dL (8.5-10.1); CARBON DIOXIDE 25.7 mmol/L (21.0-32.0); CHLORIDE - SERUM 100 mmol/L (98-107); CREATININE - SERUM 0.6 mg/dL (0.6-1.3); GLUCOSE 115 mg/dL (74-106); POTASSIUM - SERUM 4.8 mmol/L (3.5-5.1); PROTEIN - SERUM 6.8 g/dL (6.4-8.2); SODIUM 135 mmol/L (136-145); eGFR NON AFRICAN AMERICAN > 90 mL/min (90-120)
[2016-06-15 06:13] LABS: UREA NITROGEN 29 mg/dL (7-18)
--- NOTE | 2016-06-15 07:00 | NUR ---
REPORT RECIEVED ASSUMED CARE. PATIENT IN BED WITH IV INTACT. NO COMPLAINTS AT THIS TIME. CALL LIGHT WITHIN REACH.
[2016-06-15 09:14] VITALS: BP 150/75
[2016-06-15 11:10] VITALS: BP 143/78
[2016-06-15 15:46] VITALS: BP 137/77
--- NOTE | 2016-06-15 19:50 | NUR ---
ASSESSMENT COMPLETED, NO ACUTE DISTRESS NOTED, DENIES NEEDS AT THIS TIME, SCD'S IN PLACE, FALL AND ISOLATION PRECAUTIONS IN PLACE, CL IN REACH, WILL MONITOR
[2016-06-15 21:00] VITALS: BP 132/66
--- NOTE | 2016-06-15 22:35 | NUR ---
MEDS GIVEN PER MAR, MERLENE WELL, DENIESS NEEDS, CL IN REACH
--- NOTE | 2016-06-16 01:03 | NUR ---
ROBITUSSIN GIVEN PER MAR FOR COUGHING, MERLENE WELL, CL IN REACH
[2016-06-16 05:00] VITALS: BP 148/99
[2016-06-16 05:49] LABS: BASOPHILS 0 % (0.0-2.0); EOSINOPHILS 0 % (0-7); HEMATOCRIT 31.9 % (36.0-48.0); HEMOGLOBIN 10.1 g/dL (12-16); IMMATURE GRANULOCYTES 4.3 % (0-5); LYMPHOCYTES 12.3 % (15-50); MCHC 31.7 g/dL (31.0-37.0); MCV 91.7 fL (80.0-100.0); MEAN PLATELET VOLUME 10.7 fL (7.4-10.4); MONOCYTES 11.1 % (2-11); NEUTROPHILS 72.3 % (40-80); RBC 3.48 10x6/uL (4.00-5.40); RDW 15.5 % (11.5-14.5)
[2016-06-16 05:50] LABS: PLATELET COUNT 190 10x3/uL (130-400); WBC 5.9 10x3/uL (4.8-10.8)
[2016-06-16 05:59] LABS: ALBUMIN 3.4 g/dL (3.4-5.0); ALKALINE PHOSPHATASE 126 U/L (46-116); ALT (SGPT) 18 U/L (10-68); CALC OSMOLALITY 277 mosm/kg (275-300); CALCIUM 9.2 mg/dL (8.5-10.1); CARBON DIOXIDE 25.8 mmol/L (21.0-32.0); CHLORIDE - SERUM 101 mmol/L (98-107); CREATININE - SERUM 0.7 mg/dL (0.6-1.3); GLUCOSE 106 mg/dL (74-106); POTASSIUM - SERUM 4.9 mmol/L (3.5-5.1); PROTEIN - SERUM 6.7 g/dL (6.4-8.2); SODIUM 135 mmol/L (136-145); UREA NITROGEN 36 mg/dL (7-18); eGFR NON AFRICAN AMERICAN 84 mL/min (90-120)
--- NOTE | 2016-06-16 06:30 | NUR ---
LARGE AMOUNT OF BLOODY DISCHARGE FROM RECTUM, DR AVILA CONTACTED, ORDERS RECIEVED FOR BLEEDING SCAN, CBC AND CLEAR LIQUID DIET
[2016-06-16 08:11] VITALS: BP 195/117
--- NOTE | 2016-06-16 08:41 | NUR ---
SCHEDULED MEDICATIONS ADMINISTERED AT THIS TIME. LOVENOX HELD D/T PT EXPERIENCING BLOOD PER RECTUM. ASSESSMENT PERFMORED PER FLOWSHEET. FRIEND AT BEDSIDE. DENIES NEEDS AT PRESENT TIME. WILL CONTINUE WITH PLAN OF CARE.
--- NOTE | 2016-06-16 09:12 | CN ---
PATIENT NAME:MARTHA KENNY MEDICAL RECORD: [id number] : 30 LOCATION:D.[id number] ADMIT DATE: 05/18/16 ACCOUNT: [id number] CONSULTING PHYSICIAN: DENY GALVAN MD REFERRING PHYSICIAN: NIKKY DO M.D. DATE OF CONSULTATION: 05/19/2016 CONSULT REQUESTING PHYSICIAN: Nikky Do MD REASON FOR CONSULTATION: Pneumonia, fever, nausea and vomiting. HISTORY OF PRESENT ILLNESS: Ms. Kenny is an 86-year-old very pleasant female complaining of fever of 101.5. She was brought into the ER. She had significant leukocytosis and she has infiltrate in the left lower lobe on the chest radiograph. According to the patient, a few days ago, she has nausea, vomiting, and diarrhea. She is constipated for the last 2 days. She has also some abdominal cramping. Workup showed she has mild dehydration. REVIEW OF SYSTEMS: CONSTITUTIONAL: She has a fever. HEENT: No sinus congestion. RESPIRATORY: As in history of present illness. CARDIOVASCULAR: Negative. GASTROINTESTINAL: Negative. GENITOURINARY: Negative. Other review of the systems is negative. PAST MEDICAL HISTORY: 1. Atrial fibrillation. 2. Clotting disorder of unknown reason. She is on chronic anticoagulation. 3. History of chronic obstructive pulmonary disease. 4. History of anxiety. 5. Gastroesophageal reflux disease. 6. Hypertension. 7. Osteoarthritis. 8. Post-hemorrhagic anemia. 9. Restless leg syndrome. 10. Atypical chest pain. PAST SURGICAL HISTORY: 1. She has a total knee replacement. 2. Cataract surgery. ALLERGIES: There are no known drug allergies. PRESENT MEDICATIONS: She is on chronic Coumadin. Her other medication is reviewed. PERSONAL AND SOCIAL HISTORY: The patient is an ex-smoker. She is a nondrinker. FAMILY HISTORY: Significant for cardiovascular diseases and a sibling of cancer and they have blood clotting disorder. PHYSICAL EXAMINATION: GENERAL: Now, the patient is lying comfortably. She is not in acute distress. CONSULT REPORT [id number] MARTHA KENNY VITAL SIGNS: The blood pressure is 187/105, pulse is 135, respiration is 18, temperature is 102.9, SpO2 is 94% on 4 liters, it was 78% on room air. HEENT: Conjunctivae are pink. Sclerae nonicteric. NECK: Supple, no JVD. CHEST: The chest excursion is minimal, both crackle and left basilar wheeze on forceful expiration. HEART: Rhythm regular, normal sound, no murmur. ABDOMEN: Soft. Bowel sounds present. No hepatosplenomegaly. RECTAL: Deferred. EXTREMITIES: No cyanosis, no clubbing, no pedal edema. SKIN: Warm, normal turgor. CENTRAL NERVOUS SYSTEM: The patient is awake and alert. There are no obvious cranial nerve abnormality. The gait was not tested. CHEST RADIOGRAPH: There is infiltrate in left lower lobe. LABORATORY DATA: CBC: The WBC is 22.2, hemoglobin 11.9, hematocrit 34.7 and the platelet count is 186. The neutrophil count is 89.3%. Chemistry: Sodium 133, potassium 3.5, BUN is 23, creatinine 1.5 on admission, bicarbonate 19.4 and lactic acid level was 0.9. IMPRESSION: 1. Acute hypoxic respiratory failure secondary to pneumonia. 2. Acute exacerbation of chronic obstructive pulmonary disease. 3. Pneumonia, left lower lobe, most likely community-acquired pneumonia. 4. Leukocytosis secondary to pneumonia. 5. Dehydration, mild. 6. Acute kidney injury that has been improved from 1.5 to 1.3. 7. History of restless leg syndrome. 8. History of clotting disorder of unknown reason. 9. Chronic obstructive pulmonary disease exacerbation. 10. Paroxysmal atrial fibrillation. For clotting disorder, the patient has seen Dr. Bailon and no cause was found. RECOMMENDATION: 1. Continue Levaquin. I will add Rocephin to cover for Gram-negative and community-acquired pneumonia. 2. Start on methylprednisolone IV. Start on Brovana and budesonide nebulizer. Repeat the chest radiograph and labs in the morning. Dr. Do, once again thanks for involving me in the care of Ms. Kenny. TRANSINT:[id number] Voice Confirmation ID: [id number] DOCUMENT ID: [id number] DENY GALVAN MD at 0912 CC: NIKKY DO M.D. [id number] DICTATION DATE: 05/19/16 1653 HYDROTHERAPIST: 05/19/16 2246 ADM IN [facility] [id number] [place] [address]
--- NOTE | 2016-06-16 09:45 | NUR ---
EXPERIENCING MODERATE AMOUNT OF BRIGHT, RED BLOOD IN HER STOOL AT THIS TIME. STOOL CONTINUES TO OCCUR PT COUGHS. WAITING ON NUCLEAR MED BLEEDING SCAN AT THIS TIME. VITAL SIGNS STABLE AND PT REMAINS ALERT AND ORIENTED.
--- NOTE | 2016-06-16 09:50 | NUR ---
TAKEN TO IMAGING DEPARTMENT AT THIS TIME BY PITA ADDISON. SAID PT WOULD BE GONE FOR AT LEAST ONE HOUR. WILL MONITOR PT WHEN SHE RETURNS.
--- NOTE | 2016-06-16 11:20 | NUR ---
BACK TO ROOM FROM BLEEDING SCAN AT THIS TIME.
[2016-06-16 12:13] VITALS: BP 147/74
[2016-06-16 12:44] LABS: BASOPHILS 0.2 % (0.0-2.0); EOSINOPHILS 0 % (0-7); HEMATOCRIT 35.3 % (36.0-48.0); HEMOGLOBIN 11.3 g/dL (12-16); IMMATURE GRANULOCYTES 4.6 % (0-5); LYMPHOCYTES 19.7 % (15-50); MCH 29.4 pg (26.0-34.0); MCV 91.9 fL (80.0-100.0); MEAN PLATELET VOLUME 10.1 fL (7.4-10.4); MONOCYTES 19.7 % (2-11); NEUTROPHILS 55.8 % (40-80); PLATELET COUNT 204 10x3/uL (130-400); RBC 3.84 10x6/uL (4.00-5.40); RDW 15.7 % (11.5-14.5)
[2016-06-16 12:51] LABS: WBC 8.5 10x3/uL (4.8-10.8)
[2016-06-16 15:59] VITALS: BP 189/96
--- NOTE | 2016-06-16 16:45 | NUR ---
PRN CLONIDINE ADMINISTERED FOR BP AT THIS TIME, SEE FLOWSHEET. PARADA CARE PROVIDED WITH PARADA CARE WIPES AT THIS TIME. PT DENIES FURTHER NEEDS. REMAINS IN ENTERIC ISOLATION. VISITORS AT BEDSIDE. WILL CONTINUE WITH PLAN OF CARE.
--- NOTE | 2016-06-16 18:52 | NUR ---
HAD MODERATE AMOUNT OF MAROON COLORED STOOL AT THIS TIME. DR BAIRD'S AT BEDSIDE AND ASSISTED IN INCONTINENCE CARE. PT DENIES FURTHER NEEDS AT THIS TIME. WILL CONTINUE WITH PLAN OF CARE.
[2016-06-16 19:00] VITALS: BP 160/100
[2016-06-16 20:18] LABS: BASOPHILS 0.2 % (0.0-2.0); EOSINOPHILS 0 % (0-7); HEMATOCRIT 34.1 % (36.0-48.0); IMMATURE GRANULOCYTES 5.9 % (0-5); LYMPHOCYTES 13.8 % (15-50); MCH 29.8 pg (26.0-34.0); MCHC 32.3 g/dL (31.0-37.0); MCV 92.4 fL (80.0-100.0); MEAN PLATELET VOLUME 10.6 fL (7.4-10.4); MONOCYTES 10.2 % (2-11); NEUTROPHILS 69.9 % (40-80); PLATELET COUNT 204 10x3/uL (130-400); RBC 3.69 10x6/uL (4.00-5.40); RDW 15.7 % (11.5-14.5)
[2016-06-16 20:20] LABS: WBC 4.4 10x3/uL (4.8-10.8)
--- NOTE | 2016-06-16 21:23 | NUR ---
AWAKE ALERT. NO COMPLAINTS VOICED. O2 AT 2 L PER NC. NO DISTRESS NOTED. PIV TO LEFT ARM INTACT WITH NO REDNESS OR EDEMA NOTED. NS INFUSING AT 40 CC/HR. CL IN REACH
--- NOTE | 2016-06-17 02:28 | NUR ---
RESTING QUIETLY. NO DISTRESS NOTED.
[2016-06-17 05:20] LABS: BASOPHILS 0.3 % (0.0-2.0); EOSINOPHILS 0.2 % (0-7); HEMATOCRIT 31.8 % (36.0-48.0); HEMOGLOBIN 10.2 g/dL (12-16); IMMATURE GRANULOCYTES 6.2 % (0-5); LYMPHOCYTES 24.5 % (15-50); MCH 29.4 pg (26.0-34.0); MCHC 32.1 g/dL (31.0-37.0); MCV 91.6 fL (80.0-100.0); MEAN PLATELET VOLUME 10.5 fL (7.4-10.4); MONOCYTES 20.3 % (2-11); NEUTROPHILS 48.5 % (40-80); PLATELET COUNT 192 10x3/uL (130-400); RBC 3.47 10x6/uL (4.00-5.40); RDW 15.8 % (11.5-14.5)
[2016-06-17 05:24] LABS: WBC 5.8 10x3/uL (4.8-10.8)
--- NOTE | 2016-06-17 05:35 | NUR ---
NO CHANGE IN ASSESSMENT. CL IN REACH
[2016-06-17 05:47] LABS: ALBUMIN 3.5 g/dL (3.4-5.0); ALKALINE PHOSPHATASE 121 U/L (46-116); BILIRUBIN - TOTAL 0.59 mg/dL (0.2-1.3); CALC OSMOLALITY 271 mosm/kg (275-300); CALCIUM 9.2 mg/dL (8.5-10.1); CARBON DIOXIDE 25.8 mmol/L (21.0-32.0); CHLORIDE - SERUM 97 mmol/L (98-107); CREATININE - SERUM 0.6 mg/dL (0.6-1.3); GLUCOSE 85 mg/dL (74-106); POTASSIUM - SERUM 4.6 mmol/L (3.5-5.1); PROTEIN - SERUM 6.6 g/dL (6.4-8.2); SODIUM 132 mmol/L (136-145); UREA NITROGEN 35 mg/dL (7-18); eGFR NON AFRICAN AMERICAN > 90 mL/min (90-120)
[2016-06-17 05:52] LABS: ALT (SGPT) 28 U/L (10-68)
--- NOTE | 2016-06-17 07:15 | NUR ---
LYING SUPINE IN BED AT THIS TIME. RESPIRATIONS EVEN AND NON LABORED. NO S/S OF DISTRESS. PT DENIES NEEDS AT THIS TIME. CALL LIGHT IN REACH, WILL CONTINUE WITH PLAN OF CARE.
[2016-06-17 07:59] VITALS: BP 153/93
--- NOTE | 2016-06-17 09:26 | NUR ---
SPOKE WITH DR. OCHOA DUE TO PATIENT REPOTING TO DR. NOGUEIRA SHE HAS HAD 2 EPISODES OF BLOOD IN HER STOOL. REPORTEDLY LESS THAN PRIOR HEMATOCHEZIA. DR. OCHOA STATES SINCE PATIENT APPEARS TO BE IMPROVING CLINICALL Y HE WOULD NOT RECCOMEND CT ABDOMEN AT THIS TIME.
--- NOTE | 2016-06-17 09:45 | NUR ---
SCHEDULED MEDICATIONS ADMINISTERED AT THIS TIME. REMAINS IN ENTERIC PRECAUTIONS. FRIEND AT BEDSIDE. DENIES PAIN. CALL LIGHT IN REACH. ASSESSMENT PERFMORED PER FLOWSHEET. SCD'S ON AND IN WORKING ORDER. WILL CONTINUE WITH PLAN OF CARE.
--- NOTE | 2016-06-17 11:15 | NUR ---
UP IN CHAIR PER PHYSICAL THERAPY AT THIS TIME. DENIES NEEDS. CALL LIGHT IN REACH, WILL CONTINUE WITH PLAN OF CARE.
--- NOTE | 2016-06-17 13:53 | NUR ---
UP IN CHAIR AT THIS TIME. SCHEDULED MEDICATIONS ADMINISTERED PER ORDER. DENIES NEEDS AT THIS TIME. REMAINS IN ENTERIC ISOLATION. CALL LIGHT IN REACH, WILL CONTINUE WITH PLAN OF CARE.
[2016-06-17 15:38] VITALS: BP 148/89
--- NOTE | 2016-06-17 16:15 | NUR ---
DENIES NEEDS AT PRESENT TIME. IN BED AT THIS TIME. PT SELF POSITIONS FOR COMFORT. REMAINS IN ENTERIC ISOLATION. IV TO LEFT WRIST PATENT AND CALL LIGHT IN REACH, WILL CONTINUE WITH PLAN OF CARE.
--- NOTE | 2016-06-17 17:30 | NUR ---
PARADA CARE PROVIDED USING PARADA CARE WIPES. PT TOLERATED WITHOUT COMPLAINTS.
--- NOTE | 2016-06-17 18:15 | NUR ---
HAD SMALL, SOFT MAROON/BROWN COLORED BOWEL MOVEMENT AT THIS TIME.
--- NOTE | 2016-06-17 20:00 | NUR ---
PATIENT SUPINE IN BED. HOB 30 DEGREES. AAOX4. RR EVEN AND UNLABORED. O2 @ 2.5L VIA NC. 0 S/S OF DISTRESS. IV TO LEFT WRIST PATENT WITH NO REDNESS OR SWELLING. PARADA SECURED WITH STATLOCK AND DRAINING TO GRAVITY. DRESSING TO LOWER BACK CDI. SCD'S ON. SRX2. BED LOW. CALL LIGHT WITHIN REACH.
[2016-06-18 05:32] LABS: BASOPHILS 0.5 % (0.0-2.0); EOSINOPHILS 0 % (0-7); HEMOGLOBIN 10.6 g/dL (12-16); IMMATURE GRANULOCYTES 7.7 % (0-5); LYMPHOCYTES 18.7 % (15-50); MCH 29.4 pg (26.0-34.0); MCHC 32.1 g/dL (31.0-37.0); MCV 91.4 fL (80.0-100.0); MEAN PLATELET VOLUME 10.4 fL (7.4-10.4); MONOCYTES 17.1 % (2-11); PLATELET COUNT 210 10x3/uL (130-400); RBC 3.61 10x6/uL (4.00-5.40); RDW 15.6 % (11.5-14.5)
[2016-06-18 05:43] LABS: WBC 7.7 10x3/uL (4.8-10.8)
[2016-06-18 05:57] LABS: ALBUMIN 3.7 g/dL (3.4-5.0); ALKALINE PHOSPHATASE 126 U/L (46-116); ALT (SGPT) 28 U/L (10-68); BILIRUBIN - TOTAL 0.55 mg/dL (0.2-1.3); CALC OSMOLALITY 275 mosm/kg (275-300); CARBON DIOXIDE 25.8 mmol/L (21.0-32.0); CHLORIDE - SERUM 98 mmol/L (98-107); CREATININE - SERUM 0.6 mg/dL (0.6-1.3); GLUCOSE 93 mg/dL (74-106); PROTEIN - SERUM 6.6 g/dL (6.4-8.2); SODIUM 134 mmol/L (136-145); UREA NITROGEN 35 mg/dL (7-18); eGFR NON AFRICAN AMERICAN > 90 mL/min (90-120)
[2016-06-18 08:03] VITALS: BP 150/79
--- NOTE | 2016-06-18 09:05 | NUR ---
PLACED PT ON BEDPAN AND SHE HAD SMALL, LOOSE DARK BROWN/MAROON COLORED STOOL. PHYSICIANS AWARE OF BLOOD IN STOOL. DENIES FURTHER NEEDS. CALL LIGHT IN REACH. WILL CONTINUE WITH PLAN OF CARE. ASSESSMENT PERFORMED PER FLOWSHEET. OXYGENATION VIA ROOM AIR.
--- NOTE | 2016-06-18 10:55 | NUR ---
CALLED [facility] ACCESS NURSE, JOSE L LEO RN AND LEFT VOICEMAIL TO RETURN PHONE CALL. IV TO LEFT WRIST IS TENDER WITH INFUSION. NO S/S OF INFILTRATION AND NO BLOOD RETURN PRESENT. INFUSION OF PROCALAMINE DELAYED. PT STATED SHE WANTED "THE BEST ONE OUT THERE," TO START HER IV. WILL AWAIT RETURN OF PHONE CALL.
--- NOTE | 2016-06-18 11:09 | NUR ---
Nutrition Follow Up: Chart reviewed. Pt continues on Procalamine @ 40 ml/hr providing 235 kcal and 29 g protein. Diet: Full Liquid PO Intake: 44% +BM 06/18/16 I<O No new wt to assess Labs noted - Na low Meds: Solumedrol, Lasix, Phenergan, Albumin, Procalamine @ 40 ml/hr Pt with fair po intake. Rec continue advancing diet as tolerated. RD following.
[2016-06-18 12:33] VITALS: BP 135/72
--- NOTE | 2016-06-18 12:45 | NUR ---
DEANA STOCK FEEDER RE-SITED PT'S IV AT THIS TIME. 22G PLACED TO PT'S LEFT FOREARM X1 ATTEMPT. PROCALAMINE RE-INITIATED PER ORDER. CALL LIGHT IN REACH, WILL CONTINUE WITH PLAN OF CARE.
--- NOTE | 2016-06-18 14:47 | NUR ---
Patient Name: MARTHA KENNY Encounter No: [id number] : 1930 Primary Insurance: MEDICARE A & B Anticipated DC Date: Planned Disposition: Home External Planned Provider: : DCP follow-up note: CM met with patient and patient's daughter at bedside to discuss discharge planning/needs. Both patient and daughter state the patient plans to discharge to [facility] Inpatient Rehab. CM spoke with "Ml" in Inpatient Rehab who verifies patient has been accepted to discharge to [facility] Inpatient Rehab when deemed medically stable to do so. Medicare IMM served. Case management will follow and assist as needed. Gabbie Oliveros RN/CM
[2016-06-18 15:55] VITALS: BP 149/84
--- NOTE | 2016-06-18 18:00 | NUR ---
PLACED ON BEDPAN. HAD SMALL, LOOSE MAROON/BROWN BM WITHOUT DIFFICULTY. DENIES FURTHER NEEDS. CALL LIGHT IN REACH, WILL CONTINUE WITH PLAN OF CARE.
[2016-06-18] MEDS ORDERED: PREDNISONE10 MG PO (18:30)
[2016-06-18 21:00] VITALS: BP 147/79
[2016-06-19 01:00] VITALS: BP 139/63
[2016-06-19 05:00] VITALS: BP 149/80
[2016-06-19 05:30] LABS: BASOPHILS 0.6 % (0.0-2.0); EOSINOPHILS 0 % (0-7); HEMATOCRIT 32.9 % (36.0-48.0); HEMOGLOBIN 10.7 g/dL (12-16); IMMATURE GRANULOCYTES 16.1 % (0-5); LYMPHOCYTES 17.3 % (15-50); MCH 29.7 pg (26.0-34.0); MCHC 32.5 g/dL (31.0-37.0); MCV 91.4 fL (80.0-100.0); MEAN PLATELET VOLUME 10.5 fL (7.4-10.4); MONOCYTES 6.9 % (2-11); NEUTROPHILS 59.1 % (40-80); PLATELET COUNT 208 10x3/uL (130-400); RDW 15.7 % (11.5-14.5); WBC 7.8 10x3/uL (4.8-10.8)
[2016-06-19 05:51] LABS: ALBUMIN 3.7 g/dL (3.4-5.0); ALKALINE PHOSPHATASE 134 U/L (46-116); ALT (SGPT) 31 U/L (10-68); BILIRUBIN - TOTAL 0.48 mg/dL (0.2-1.3); CALC OSMOLALITY 274 mosm/kg (275-300); CALCIUM 9.1 mg/dL (8.5-10.1); CARBON DIOXIDE 25.9 mmol/L (21.0-32.0); CHLORIDE - SERUM 99 mmol/L (98-107); CREATININE - SERUM 0.6 mg/dL (0.6-1.3); GLUCOSE 100 mg/dL (74-106); POTASSIUM - SERUM 4.3 mmol/L (3.5-5.1); PROTEIN - SERUM 6.8 g/dL (6.4-8.2); SODIUM 133 mmol/L (136-145); UREA NITROGEN 38 mg/dL (7-18); eGFR NON AFRICAN AMERICAN > 90 mL/min (90-120)
--- NOTE | 2016-06-19 07:00 | NUR ---
PT REC'D FROM [facility]. RESTING IN BED READING PAPER. AAOX4. NO COMPLAINTS OF PAIN. SCD'S ON. LUNG SOUNDS CLEAR AND EQUAL BILAT. BOWEL SOUNDS ACTIVE AT ALL 4 QUADRANTS. ABD SLIGHTLY DISTENDED. NO TENDERNESS UPON PALPATION. PROCAL INFUSING TO PIV AT 40CC'S/HR. BED LOW, CALL LIGHT IN REACH, DENIES NEEDS. CPOC.
[2016-06-19 08:19] VITALS: BP 196/96
--- NOTE | 2016-06-19 09:04 | NUR ---
MORNING MEDS PASSED AT THIS TIME. IV SITE TO L FA RED AND SWOLLEN. IV FLUIDS STOPPED. ATTEMPTED TO FLUSH SITE AND PT COMPLAINED OF PAIN. PT POSSIBLE GOING TO REHAB SO WILL ASK ABOUT SL.
--- NOTE | 2016-06-19 11:00 | NUR ---
PATIENT SITTING UP AT THIS TIME WITH NO COMPLAINTS. CALL LIGHT WITHIN REACH. FAMILY AT BEDSIDE.
--- NOTE | 2016-06-19 11:23 | NUR ---
IV TO L FOREARM DC'D WITH CATHETER INTACT. DRESSING APPLIED.
[2016-06-19 12:23] VITALS: BP 148/90
--- NOTE | 2016-06-19 13:23 | NUR ---
TC TO [facility] ACUTE REHAB. S/W CATRACHITO. THEY DID NOT HAVE A PATIENT SCHEDULED FOR ADMISSION TODAY. SHE ADVISED CM TO SPEAK W/ ON-CALL NURSE. TC TO JUAN. SHE WILL REVIEW AND ADVISED IF PATIENT CAN BE ACCEPTED TODAY. AWAIT CALL BACK.
--- NOTE | 2016-06-19 14:37 | NUR ---
[facility] CATHETER DC'D. 600CC'S OF URINE EMPTIED FROM BAG BEFORE REMOVAL. EXPLAINED TO PT THAT SHE COULD EITHER USE THE BED KUMAR FROM NOW ON OR USE A BSC. PT STATES SHE UNDERSTANDS AND HAS NO QUESTIONS AT THIS TIME. BED LOW, CALL LIGHT IN REACH, DENIES NEEDS.
--- NOTE | 2016-06-19 14:53 | NUR ---
Rehab Note- Informed from KOSTAS Pantoja that patient was ready for discharge from acute hospital today per . The patient is to be accepted & admitted to [facility] IRF today. Zeynep Scott RN Clinical Liaison, [facility]
[2016-06-19 15:41] VITALS: BP 170/73
--- NOTE | 2016-06-19 17:49 | NUR ---
DR. BUITRAGO PAGED REGARDING MED REC FOR TRANSFER.
[2016-06-19] MEDS ORDERED: PEPCID20 MG PO (18:00)
[2016-06-19] MEDS ORDERED: BENZONATATE200 MG PO (18:00)
[2016-06-19] MEDS ORDERED: MUCINEX DM ER1 EAC1 PO (18:01)
[2016-06-19] MEDS ORDERED: SINGULAIR10 MG PO (18:02)
[2016-06-19] MEDS ORDERED: XOPENEX 0.0.63 MG/3 UPD ×2 (18:02→18:08)
[2016-06-19] MEDS ORDERED: STERAPRED DS 1010 MG PO (18:03)
[2016-06-19] MEDS ORDERED: FLORASTOR250 MG PO (18:04)
[2016-06-19] MEDS ORDERED: CATAPRES0.1 MG PO (18:06)
[2016-06-19] MEDS ORDERED: PROMETHAZINE V120 M1 PO (18:07)
[2016-06-19] MEDS ORDERED: CALMOSEPTINE OI71 GM TOPICAL (18:09)
[2016-06-19] MEDS ORDERED: PREDNISONE10 MG PO (18:20)
[2016-06-19] MEDS ORDERED: STERAPRED DS 1210 MG PO (18:26)
--- NOTE | 2016-06-19 20:45 | NUR ---
Late [id number] TC to Rehab. Spoke with Mirella. They did not have the patient scheduled for admission. She advised CM to call the on-call screener/ liaison nurse. CM advised DR Ruiz on her rounds. TC to pain management nurse practitioner nurse, Zeynep, clinical liaison, [facility]. She would review patient and advise if patient could be admitted to [facility] Rehab today. [id number] Received approval for patient discharge to acute rehab today. Patient's primary nurse prepared for discharge to rehab.
== END 2016-06-19 19:38 | DRG 371 ==
LOC: D.ER 11:21 → D.ICU 14:52 → D.MS 14:52 → D.M2 14:52 → D.SDCHOLD 14:52 → D.M2 16:25 → D.ICU 05-23 12:48 → D.MS 05-31 14:39
PROVIDERS: Emergency Medicine; Family Medicine; Family Medicine Adult Medicine; General Practice; Internal Medicine Gastroenterology; Internal Medicine Hematology & Oncology; Internal Medicine Nephrology; Internal Medicine Pulmonary Disease; Physician Assistant Medical; ADMIT Family Medicine
PROC: 0DBG8ZX Excision of Left Large Intestine, Via Natural or Artificial Opening Endoscopic, Diagnostic (ICD-10-PCS; 2016-06-09)
PROC: 3E0H8GC Introduction of Other Therapeutic Substance into Lower GI, Via Natural or Artificial Opening Endoscopic (ICD-10-PCS; 2016-06-09)
PROC: 0DB68ZX Excision of Stomach, Via Natural or Artificial Opening Endoscopic, Diagnostic (ICD-10-PCS; principal; 2016-06-09 11:00)
PROC: 07DR3ZX Extraction of Iliac Bone Marrow, Percutaneous Approach, Diagnostic (ICD-10-PCS; 2016-06-10)
DX: A04.7 Enterocolitis due to Clostridium difficile (principal); J18.9 Pneumonia, unspecified organism; J96.01 Acute respiratory failure with hypoxia; N17.0 Acute kidney failure with tubular necrosis; J44.0 Chronic obstructive pulmonary disease with (acute) lower respiratory infection; E87.1 Hypo-osmolality and hyponatremia; B37.0 Candidal stomatitis; K56.7 Ileus, unspecified; D68.9 Coagulation defect, unspecified; J98.11 Atelectasis; J44.1 Chronic obstructive pulmonary disease with (acute) exacerbation; K55.9 Vascular disorder of intestine, unspecified; E86.0 Dehydration; G25.81 Restless legs syndrome; I10 Essential (primary) hypertension; M19.90 Unspecified osteoarthritis, unspecified site; F41.9 Anxiety disorder, unspecified; K21.9 Gastro-esophageal reflux disease without esophagitis; I48.0 Paroxysmal atrial fibrillation; Z79.01 Long term (current) use of anticoagulants; D69.6 Thrombocytopenia, unspecified; D50.9 Iron deficiency anemia, unspecified; D64.89 Other specified anemias; R13.12 Dysphagia, oropharyngeal phase

== ENCOUNTER 2016-06-19 17:20 | Inpatient (IN) | payer MEDICARE ==
[~2016-06-19] VITALS: Ht 165.1 cm; Wt 55.3 kg
--- NOTE | 2016-06-19 16:52 | NUR ---
RECIEVED FROM MED SURG/WC TO ROOM 1115.ORIENTED TO ROOM AND SURROUNDINGS.SCD'S IN PLACE.CL IN REACH.1ST STEP MATTRESS IN WORKING ORDER.
[~2016-06-19 17:20] MED LIST changes: +PREDNISONE10 MG PO
[2016-06-19] MEDS ORDERED: BENZONATATE200 MG PO (18:00)
[2016-06-19] MEDS ORDERED: PEPCID20 MG PO (18:00)
[2016-06-19] MEDS ORDERED: MUCINEX DM ER1 EAC1 PO (18:01)
[2016-06-19] MEDS ORDERED: XOPENEX 0.0.63 MG/3 UPD ×2 (18:02→18:08)
[2016-06-19] MEDS ORDERED: SINGULAIR10 MG PO (18:02)
[2016-06-19] MEDS ORDERED: STERAPRED DS 1010 MG PO (18:03)
[2016-06-19] MEDS ORDERED: FLORASTOR250 MG PO (18:04)
[2016-06-19] MEDS ORDERED: CATAPRES0.1 MG PO (18:06)
[2016-06-19] MEDS ORDERED: PROMETHAZINE V120 M1 PO (18:07)
[2016-06-19] MEDS ORDERED: CALMOSEPTINE OI71 GM TOPICAL (18:09)
[2016-06-19] MEDS ORDERED: PREDNISONE10 MG PO (18:20)
[2016-06-19] MEDS ORDERED: STERAPRED DS 1210 MG PO (18:26)
--- NOTE | 2016-06-19 19:30 | NUR ---
PT IS RESTING IN BED WITH EYES OPEN. ALERT AND ORIENTED X 4. VSS. SCD'S AND PODO BOOTS ARE ON AND INTACT. PT RESTING ON A 1ST STEP MATTRESS. CONTACT PRECAUTIONS OBSERVED. SR'S ARE UP X 2 IN BED. CALL LIGHT AND BEDSIDE TABLE ARE WITHIN EASY REACH.
[2016-06-19 19:42] VITALS: BP 165/86; BMI 20.3
[2016-06-19 20:00] VITALS: BP 147/75
--- NOTE | 2016-06-19 21:51 | NUR ---
PT IS RESTING IN BED WITH EYES OPEN. ASSISTED TO USE BEDPAN WITH MOD ASSIST. TOTAL ASSIST WITH TOILETING. SCANT AMOUNT OF LOOSE STOOL NOTED.
--- NOTE | 2016-06-20 00:30 | NUR ---
PT ASSISTED TO USE BEDPAN. VOIDED WITHOUT DIFFICULTY. NO BM NOTED.
--- NOTE | 2016-06-20 03:47 | NUR ---
PT ASSISTED TO USE THE BEDPAN. LARGE URINE SPILL NOTED. BEDBATH AND TOTAL LINEN CHANGE GIVEN.
--- NOTE | 2016-06-20 06:13 | NUR ---
pt in isolation, pt respirations regular and unlabored and no s/s of acute distress.
[2016-06-20 06:18] LABS: BASOPHILS 1.5 % (0.0-2.0); EOSINOPHILS 0.6 % (0-7); IMMATURE GRANULOCYTES 15.8 % (0-5); MCH 29.6 pg (26.0-34.0); MCHC 32.4 g/dL (31.0-37.0); MCV 91.4 fL (80.0-100.0); MEAN PLATELET VOLUME 11.1 fL (7.4-10.4); MONOCYTES 10.5 % (2-11); NEUTROPHILS 52.6 % (40-80); RBC 3.72 10x6/uL (4.00-5.40)
[2016-06-20 06:20] LABS: PLATELET COUNT 140 10x3/uL (130-400); WBC 9.9 10x3/uL (4.8-10.8)
[2016-06-20 06:38] LABS: CALC OSMOLALITY 274 mosm/kg (275-300); CALCIUM 8.6 mg/dL (8.5-10.1); CHLORIDE - SERUM 101 mmol/L (98-107); CREATININE - SERUM 0.6 mg/dL (0.6-1.3); GLUCOSE 77 mg/dL (74-106); POTASSIUM - SERUM 4.1 mmol/L (3.5-5.1); SODIUM 134 mmol/L (136-145); UREA NITROGEN 35 mg/dL (7-18); eGFR NON AFRICAN AMERICAN > 90 mL/min (90-120)
[2016-06-20 07:00] VITALS: BP 150/93
--- NOTE | 2016-06-20 08:00 | NUR ---
SHIFT ASSMT COMPLETED.BEDPAN GIVEN.STATES HAD SOME DIFFICULTY VOIDING NOT MUCH THROUGH NIGHT.MEAL SET-UP PROVIDED.
--- NOTE | 2016-06-20 08:15 | NUR ---
HAD A MASHED POTATO CONSISTENTCY BROWN BM AND VOIDED DARK YELLOW URINE.CLEANED AND MEAL GIVEN.
--- NOTE | 2016-06-20 12:00 | NUR ---
SITTING UP EATING LUNCH.MEAL SET-UP PROVIDED.CL IN REACH.
[2016-06-20 14:15] VITALS: BP 150/76
--- NOTE | 2016-06-20 14:15 | NUR ---
C/O SHARP MID BACK PAIN THROUGH TO FRONT OF CHEST.NO SOB,DENIES SOB.VSS;BP 150/76,PULSE 97;RESPS.20;PULSE OX RA 97%.
--- NOTE | 2016-06-20 14:30 | NUR ---
LAB,;CEQ6H W/EKG ORDERED.RYAN WITH RT NOTIFIED AND LAB NOTIFIED.CXR ORDERED.
[2016-06-20 15:52] LABS: CKMB 0.7 U/L (0.0-3.6); CREATINE KINASE 15 UL (21-215)
[2016-06-20 15:53] LABS: TROPONIN-I < 0.017 ng/mL (0.000-0.060)
--- NOTE | 2016-06-20 20:00 | NUR ---
PT IS SHOWERING WITH OT DURING HER INITIAL EVAL.
[2016-06-20 20:32] LABS: CKMB 0.8 U/L (0.0-3.6); CREATINE KINASE 13 UL (21-215)
[2016-06-20 20:43] LABS: TROPONIN-I < 0.017 ng/mL (0.000-0.060)
--- NOTE | 2016-06-20 22:14 | NUR ---
PT RESTING IN BED WATCHING TV. NO NEEDS VOICED.
--- NOTE | 2016-06-21 00:12 | NUR ---
PT RESTING, EYES CLOSED. BED LOW. CL IN REACH.
[2016-06-21 03:24] LABS: INR 1.08 (0.85-1.17); PROTIME 13.9 SECONDS (11.6-15.0)
[2016-06-21 03:40] LABS: CKMB 0.7 U/L (0.0-3.6); CREATINE KINASE 15 UL (21-215); TROPONIN-I 0.018 ng/mL (0.000-0.060)
--- NOTE | 2016-06-21 06:01 | NUR ---
PT RESTING QUIETLY IN BED WITH EYES CLOSED. RESPS ARE EVEN AND UNLABORED. NO ACUTE DISTRESS NOTED. PANTS NOT DONNED TO ALLOW PT'S FREQUENT USE OF THE BEDPAN.
--- NOTE | 2016-06-21 07:51 | NUR ---
EATING BREAKFAST IN BED. DENIES NEEDS. CALL LIGHT IN REACH. HAS WEAKNESS TO ALL EXTREMITIES
[2016-06-21 07:53] VITALS: BP 141/79
[2016-06-21 12:14] VITALS: Ht 165.1 cm; Wt 55.3 kg
--- NOTE | 2016-06-21 18:18 | NUR ---
WALKING HALLS WITH FRIEND
[2016-06-21 19:15] VITALS: BP 113/58
--- NOTE | 2016-06-21 19:25 | NUR ---
PT. IN BED WITH HOB UP FOR COMFORT GOING OVER HER MENU FOR TOMORROW. PT. HAS NO VOICED NEEDS AT THIS TIME. ASSESSMENT COMPLETED. PT. AWARE OF HER CONTACT ISOLATION FOR C-DIFF. CALL LIGHT WITHIN REACH FOR ANY NEEDS.
--- NOTE | 2016-06-21 22:30 | NUR ---
PT. IN BED LYING ON HER RIGHT SIDE AND PLAYING A GAME ON HER PHONE. PT. HAS NO VOICED NEEDS AT THIS TIME. CALL LIGHT WITHIN REACH.
--- NOTE | 2016-06-22 01:45 | NUR ---
PT. REPORTS SHE HAS HAD ANOTHER BM. ASSISTED PT. IN CLEANING UP AND CHANGING HER BRIEF. CALMOSEPTINE APPLIED TO BUTTOCK/RECTAL AREA FOR SKIN BARRIER PROTECTION. POSITIONED PT. TO COMFORT WITH CALL LIGHT AND SCD'D IN PLACE. STOOL SPECIMEN COLLECTED FOR OCCULT BLOOD, LABELED, BAGGED AND TRANSPORTED TO THE LAB FOR PROCESSING. PT. AWARE OF ORDER FOR TEST.
--- NOTE | 2016-06-22 07:48 | NUR ---
SITTING UP IN BED. AWAKE AND LOOKING AROUND. DENIES PAIN OR NEEDS.
[2016-06-22 08:46] VITALS: BP 142/72
--- NOTE | 2016-06-22 12:09 | NUR ---
EATING LUNCH IN BED. APPETITE FAIR.
--- NOTE | 2016-06-22 13:44 | NUR ---
Nutrition Follow Up: Pt reported that her appetite is okay. She said that she loves chocolate Ensure. Pt requested strawberry banana yogurt with each meal. Pt is eating 80% meal avg on a regular diet. Pt is receiving Ensure TID. Wt loss of 1# since admit. +BM 06/22/16. Meds noted including Prednisone. Labs noted. Pt with good po intake at this time. Rec continue current diet. Will continue to send Ensure TID and will add yogurt TID. RD following.
--- NOTE | 2016-06-22 15:08 | NUR ---
RESTING QUIETLY IN BED. CALL LIGHT IN REACH
--- NOTE | 2016-06-22 18:37 | NUR ---
RESTING QUIETLY IN BED. CALL LIGHT IN REACH
[2016-06-22 18:40] VITALS: BP 166/85
--- NOTE | 2016-06-22 20:00 | NUR ---
PT ASSISTED WITH USE OF BEDPAN. PT VOIDED YELLOW URINE. NO BM. PT HS MEDS GIVEN. PT DENIES FURTHUR NEEDS AT THIS TIME. BED LOW. CL INR EACH.
--- NOTE | 2016-06-22 22:14 | NUR ---
PT GIVEN SHOWER WITH ASSISTANCE OF AID. PT BACK IN BED AND DENIES FURTHUR NEEDS. WCTM. BED LOW. CLIN REACH.
--- NOTE | 2016-06-23 00:32 | NUR ---
ASSISTED PT TO BR. PT HAD SMALL BM WHICH WAS SENT TO LAB FOR CDIFF TESTING. PT BACK IN BED RESTING AND DENIES FURTHUR NEEDS. WCTM. BED LOW. CL INR EACH.
--- NOTE | 2016-06-23 02:07 | NUR ---
PT RESTING, EYES CLOSED. RR ARE EVEN AND UNLABORED. WCTM. BED LOW. CL IN REACH.
[2016-06-23 06:53] LABS: CALC OSMOLALITY 272 mosm/kg (275-300); CALCIUM 8.5 mg/dL (8.5-10.1); CARBON DIOXIDE 25.3 mmol/L (21.0-32.0); CHLORIDE - SERUM 100 mmol/L (98-107); CREATININE - SERUM 0.6 mg/dL (0.6-1.3); GLUCOSE 81 mg/dL (74-106); POTASSIUM - SERUM 4.1 mmol/L (3.5-5.1); SODIUM 135 mmol/L (136-145); UREA NITROGEN 25 mg/dL (7-18); eGFR NON AFRICAN AMERICAN > 90 mL/min (90-120)
[2016-06-23 07:07] LABS: BASOPHILS 0.4 % (0.0-2.0); EOSINOPHILS 0.4 % (0-7); HEMATOCRIT 31.8 % (36.0-48.0); HEMOGLOBIN 10.3 g/dL (12-16); IMMATURE GRANULOCYTES 11.2 % (0-5); LYMPHOCYTES 17.3 % (15-50); MCH 29.4 pg (26.0-34.0); MCHC 32.4 g/dL (31.0-37.0); MCV 90.9 fL (80.0-100.0); MEAN PLATELET VOLUME 9.8 fL (7.4-10.4); MONOCYTES 13.7 % (2-11); PLATELET COUNT 142 10x3/uL (130-400); RDW 16.1 % (11.5-14.5); WBC 10.2 10x3/uL (4.8-10.8)
--- NOTE | 2016-06-23 08:00 | NUR ---
SHIFT ASSMT COMPLETED.DENIES NEEDS.RESTING QUIETLY.ON 1ST STEP BED.
[2016-06-23 08:09] VITALS: BP 143/71
--- NOTE | 2016-06-23 08:44 | RHP ---
PATIENT: MARTHA KENNY MEDICAL RECORD: [id number] ACCOUNT: [id number] LOCATION:[facility].1115 : 30 ADMISSION DATE: 06/19/16 REHABILITATION HISTORY AND PHYSICAL EXAMINATION POST ADMISSION PHYSICIAN EXAMINATION Post-admission Physical Exam and History and Physical DATE OF ADMISSION: 06/19/2016 ADMITTING DIAGNOSES TO THE REHAB: Disuse myopathy, acute hypoxic respiratory failure, and prolonged hospitalization. HISTORY OF PRESENT ILLNESS: The patient is an 86-year-old female patient who is admitted to the rehab with disuse myopathy. She was brought into the Emergency Room on May 18 complaining of fever up to 101.5. She has significant leukocytosis. She had an infiltrate on her left lower lobe on chest x-ray. According to the patient a few days prior to this, she had nausea, vomiting, and diarrhea. She was found to be dehydrated. Blood pressure was 187/105, pulse was 135, respirations were 18, temperature was 102.9, her pulse ox was 94% on 4 liters, it was 78% on room air. She was admitted for pulmonary consultation. She is on chronic anticoagulants for atrial fibrillation and was found to have subtherapeutic INR. Her platelet count dropped to 14,000. Heme-onc was consulted. She received a total of 8 units of platelets, 2 units packed red blood cells and 1 unit of FFP. She has continued to have copious diarrhea stools, CDT positive. GI and ID were consulted. She was treated with IV Flagyl, p.o. vancomycin, and vancomycin enemas. 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 She is currently having small but frequent stools, dark and sticky per nurse. Her breathing is improved. She is on 2.5 liters of O2 per nasal cannula. She finished her IV antibiotics, remains on IV steroids and nebs. Her platelets were up to 208. She has got an upper GI bleed and has a GI workup completed and bleed has resolved. She has poor p.o. intake, has been receiving procalamine 40 cc per hour and has been on a full liquid diet with diet advancement and closely followed by dietary. Prior to admission, she was living at home alone and was independent with any type of device. Currently, due to her lengthy hospitalization, she has moderate to total assist for ADLs and mobility and will require inpatient rehab to get back to her prior level of functioning. COMORBIDITIES: In this patient include ileus, thrombocytopenia, hyponatremia, dehydration, leukocytosis, diarrhea, fever, general debility, hypertension, arthritis, anxiety, poor p.o. 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 PAST MEDICAL HISTORY: Significant for atrial fibrillation, clotting disorder, COPD, anxiety, gastroesophageal reflux disease, hypertension, osteoarthritis, post-hemorrhagic anemia, restless leg syndrome, and atypical chest pain. PAST SURGICAL HISTORY: Includes a total knee and cataract surgery and also retinal surgery. ALLERGIES: No known drug allergies. HISTORY AND PHYSICAL [id number] MARTHA KENNY CURRENT MEDICATIONS: Include a tapering dose of prednisone. She is on lisinopril 40 mg daily. She is on Xopenex updrafts. She is on zolpidem 2.5 mg at bedtime p.r.n., Floranex daily, Mirapex 1 mg q.h.s., Phenergan with codeine p.r.n. cough, Zofran 4 mg q.4 hours p.r.n. nausea and vomiting, Singulair 10 mg q.h.s. She is on Calmoseptine p.r.n., Xopenex as needed, Mucinex D twice daily, Pepcid 20 mg b.i.d., Colace 100 mg b.i.d., clonidine 0.1 mg q.4 hours p.r.n. elevated blood pressure greater than 170 systolic or 105 diastolic and Tessalon Perles 200 mg t.i.d. HABITS: No alcohol or tobacco use. FAMILY HISTORY: Noncontributory. SOCIAL HISTORY: The patient hopes to return back home and get back to her prior level of functioning. REVIEW OF SYSTEMS: GENERAL: Does complain of weakness and fatigue. HEENT: Denies cold, cough, or congestion. CARDIOVASCULAR: Denies any chest pain. LUNGS: Does complain of shortness of breath. PHYSICAL EXAMINATION: VITAL SIGNS: Stable, afebrile. GENERAL: Elderly female, in no acute distress, alert upon exam. HEENT: Normocephalic and atraumatic. Mucosa moist. NECK: Supple. No lymphadenopathy. LUNGS: Clear at this time. HEART: Irregular rate and rhythm. ABDOMEN: Benign. EXTREMITIES: No clubbing, cyanosis or edema. NEUROLOGIC: Seems intact. LABORATORY DATA: Admit labs showed a white count of 9.9, H&H of 11 and 34 and platelet count was noted to be 16,000. Her INR was 1.08. Sodium 134, potassium 4.1, BUN and creatinine of 35 and 0.6 and blood sugar was noted to be 77. ASSESSMENT: This is an 86-year-old female patient admitted to rehab with a working diagnosis of disuse myopathy complicated by multiple medical problems. The patient has potential to make improvement. We instituted the following multidisciplinary therapies including to, but not limited to physical, occupational, respiratory, speech, nutritional services, prosthetics and orthotics. Given her complex condition and risk for more complications, rehabilitation services cannot be provided at a lower level of care such as a group home facility. PLAN: 1. Admit to [facility] rehab for intensive inpatient therapy to include the following disciplines: A. Physical therapy to improve gait, all transfer skills and bed mobility to a modified independent level. B. Occupational therapy to improve activities of daily living to a modified independent level. C. Case management to assist with discharge planning and placement options. D. Nutrition to assist with nutritional needs. HISTORY AND PHYSICAL [id number] MARTHA KENNY. Rehabilitation nursing to assist in monitoring the patient's underlying medical conditions and to assist with any type of bowel or bladder management. 2. The patient's current medication and medical care will be continued. 3. The patient will be placed on standard fall precautions. 4. The patient's estimated length of stay is approximately 10-14 days. 5. Discuss this patient during care team staff meeting this week. TRANSINT:[id number] Voice Confirmation ID: [id number] DOCUMENT ID: [id number] JERAMY ALAS MD at 0844 CC: [id number] DICTATION DATE: 06/21/16 0858 HUMAN GEOGRAPHY INSTRUCTOR: 06/21/16 1155 [place] [address]
--- NOTE | 2016-06-23 12:00 | NUR ---
DID NOT FEEL LIKE EATING MUCH.VERY TIRED AFTER LUNCH.CL IN REACH.
--- NOTE | 2016-06-23 16:00 | NUR ---
RESTING QUIETLY.CL IN REACH.
--- NOTE | 2016-06-23 16:46 | NUR ---
CARE TEAM MEETING: PATIENT TENATIVE DISCHARGE DATE IS 07/02/16. PATIENT WILL BE RA AT NEXT MEETING. WILL CONTINUE TO FOLLOW WITH PATIENT UNTIL DISCHARGED
--- NOTE | 2016-06-23 19:00 | NUR ---
TRANSFERRED PATIENT TO [facility] TO URINATE AND HAVE A BM. PATIENT HAD 1 X 1/2" LOOSE STOOL SPOT IN HER BRIEF BUT WAS OTHERWISE CONTINENT AND INITIATED A LOOSE GASSY BM IMMEDIATELY UPON SITTING ON COMMODE. PATIENT WAS FOUND TO STILL BE C.diff. POSITIVE LAST NIGHT.
[2016-06-23 19:10] VITALS: BP 134/76
--- NOTE | 2016-06-23 19:24 | NUR ---
PT ASSISTED TO BR WITH MAX ASSIST. MEDIUM LOOSE BM NOTED. PT ASSISTED BACK TO BED. ALERT AND ORIENTED X 3. PT DENIES OTHER PAIN OR DISCOMFORT AT THIS TIME. CONTACT PRECAUTIONS OBSERVED FOR C-DIFF. SR'S ARE UP X 3 IN BED. CALL LIGHT AND BEDSIDE TABLE ARE WITHIN EASY REACH.
--- NOTE | 2016-06-23 21:36 | NUR ---
PT RESTING IN BED WATCHING TV AND PLAYING ON HER TABLET. NO ACUTE DISTRESS NOTED.
--- NOTE | 2016-06-23 23:59 | NUR ---
RESTING QUIETLY IN BED WITH EYES CLOSED. RESPS ARE EVEN AND UNLABORED. NO ACUTE DISTRESS NOTED.
--- NOTE | 2016-06-24 03:00 | NUR ---
RESTING IN BED WITH EYES CLOSED.
--- NOTE | 2016-06-24 05:20 | NUR ---
PT ASSISTED TO USE BEDPAN WITH MAX ASSIST. VOIDED 300 CC CLEAR YELLOW URINE, WITH A VERY SMALL AMOUNT OF STOOL.
--- NOTE | 2016-06-24 08:00 | NUR ---
shift assmt completed.denies needs.breakfast tray given.cl in reach.
--- NOTE | 2016-06-24 09:10 | NUR ---
WOUND CARE CONSULT; NOTED LIGHTLY BLANCHABLE SKIN SACRUM/COCCYX/BUTTOCKS. APPEARS A HEALING DTI. NO OPEN AREAS. CALMOSEPTINE CREAM IS BEING APPLIED TO PROTECT AREA D/T DIARRHEA. PT IS AWARE OF IMPORTANCE OF TURNING/REPOSITIONING WHILE IN BED AND VOICED UNDERSTANDING. WILL CONTINUE TO MONITOR.
[2016-06-24 09:43] VITALS: BP 133/77
--- NOTE | 2016-06-24 12:00 | NUR ---
eating lunch.denies needs.
--- NOTE | 2016-06-24 16:00 | NUR ---
denies needs.pending results of stool quiac.
--- NOTE | 2016-06-24 16:57 | NUR ---
called and spoke with re stool quiac positive;am dose eliquis held and he stated to continue eliquis at 2.5mg and add cbc to am lab.
[2016-06-24 19:15] VITALS: BP 126/71
--- NOTE | 2016-06-24 19:53 | NUR ---
PT IS RESTING IN BED WATCHING TV. ALERT AND ORIENTED X 3. DENIES ANY DISCOMFORT AT THIS TIME. SCD'S ARE ON. PT IS RESTING ON A 1ST STEP MATTRESS. CONTACT PRECAUTIONS OBSERVED. SR'S ARE UP X 3 IN BED. CALL LIGHT AND BEDSIDE TABLE ARE WITHIN EASY REACH.
--- NOTE | 2016-06-24 22:09 | NUR ---
PT RESTING IN BED WATCHING TV. NO ACUTE DISTRESS NOTED.
--- NOTE | 2016-06-25 00:06 | NUR ---
PT ASSISTED TO USE BEDPAN WITH MAX ASSIST. VOIDED WITHOUT DIFFICULTY. NO BM NOTED.
--- NOTE | 2016-06-25 02:15 | NUR ---
PROVIDED PATIENT WITH ANOTHER BLANKET. SAYS SHE IS COOL. PRIMARY NURSE REPORTS THAT HE OFFERED HER ANOTHER BLANKET ABOUT 30 MINUTES AGO WHER HE CHANGED HER AND SHE DECLINED.
--- NOTE | 2016-06-25 06:09 | NUR ---
PT RESTING IN BED WITH EYES OPEN. ASSISTED TO USE BEDPAN. VOIDED WITHOUT DIFFICULTY. NO STOOL NOTED.
[2016-06-25 06:42] LABS: BASOPHILS 0.6 % (0.0-2.0); EOSINOPHILS 0.5 % (0-7); HEMATOCRIT 31.1 % (36.0-48.0); IMMATURE GRANULOCYTES 6.9 % (0-5); LYMPHOCYTES 23.7 % (15-50); MCH 29.6 pg (26.0-34.0); MCHC 32.2 g/dL (31.0-37.0); MEAN PLATELET VOLUME 10.4 fL (7.4-10.4); MONOCYTES 14.5 % (2-11); NEUTROPHILS 53.8 % (40-80); PLATELET COUNT 133 10x3/uL (130-400); RBC 3.38 10x6/uL (4.00-5.40); RDW 16.1 % (11.5-14.5); WBC 7.8 10x3/uL (4.8-10.8)
[2016-06-25 07:00] LABS: CALC OSMOLALITY 266 mosm/kg (275-300); CALCIUM 8.7 mg/dL (8.5-10.1); CARBON DIOXIDE 25.2 mmol/L (21.0-32.0); CHLORIDE - SERUM 99 mmol/L (98-107); CREATININE - SERUM 0.7 mg/dL (0.6-1.3); GLUCOSE 80 mg/dL (74-106); POTASSIUM - SERUM 4.2 mmol/L (3.5-5.1); SODIUM 132 mmol/L (136-145); UREA NITROGEN 20 mg/dL (7-18); eGFR NON AFRICAN AMERICAN 84 mL/min (90-120)
--- NOTE | 2016-06-25 07:45 | NUR ---
SITTING UP IN BED WITH SIDERAILS UPX2. NO NEEDS VOICED.
[2016-06-25 08:33] VITALS: BP 142/78
--- NOTE | 2016-06-25 09:35 | NUR ---
SITTING IN WHEELCHAIR WITH OT CORINNA IN THE ROOM.
--- NOTE | 2016-06-25 11:45 | NUR ---
sitting in therapy room working with therapy. no needs voiced.
--- NOTE | 2016-06-25 13:02 | NUR ---
sitting in wheelchair in the room. no nees voioced.
--- NOTE | 2016-06-25 15:03 | NUR ---
RESTING IN BED WITH SIDERAILS UPX2.
--- NOTE | 2016-06-25 17:47 | NUR ---
SITTING IN BED WITH TV ON AND CALLIGHT IN REACH.
[2016-06-25 18:45] VITALS: BP 136/79
[2016-06-25 19:34] VITALS: BP 117/54
--- NOTE | 2016-06-25 20:50 | NUR ---
ELIQUIS PILL FELL TO THE FLOOR WHILE ATTEMPTING TO GET IT OUT OF [employer] PACKAGING WHILE WEARING GLOVES. ANOTHER ELIQUIS PILL OBTAIN FROM THE [employer] SYSTEM.
--- NOTE | 2016-06-25 20:55 | NUR ---
ASSISTED PT. IN USING BEDPAN TO URINATE. GOOD RESULTS. PT. CLEANED AND OINTMENT APPLIED TO BUTTOCK/COCCYX AREA SKIN AND NO VISIBLE ALTERED SKIN. PT. POSITIONED HERSELF TO COMFORT AND CALL LIGHT WITHIN REACH UPON MY LEAVING HER ROOM.
--- NOTE | 2016-06-25 22:30 | NUR ---
PT. ASSISTED ONTO BEDPAN TO URINATE. PT. COMPLAINING ABOUT THE FREQUENTLY OF HER URINATING. REASSURED PT. THAT IF SHE IS DRINKING THE WATER THEN HER BODY IS PROCESSING IT APPROPRIATELY. ADEQUATE AMOUNT OF URINE VOIDED INTO BEDPAN. PT. CLEANED AND OINTMENT APPLIED TO BUTTOCK/COCCYX AREAS AND NO VISIBLE ALTERED SKIN. PT. POSITIONED TO COMFORT AND CALL LIGHT WITHIN REACH. PT. AWARE OF HER ISOLATION PRECAUTIONS THE STAFF/VISITORS HAVE TO FOLLOW.
--- NOTE | 2016-06-26 00:29 | NUR ---
HAVE ASSISTED PT. TO USE THE BEDPAN 3 TIMES SO FAR WITH A GOOD AMOUNT OF URINE RESULT. PT. TURNS HERSELF FROM SIDE TO SIDE INSTRUCTED BY WOUND NURSE, PT. REPORTS. PT. POSITIONED TO COMFORT ON HER RIGHT SIDE AND CALL LIGHT WITHIN REACH UPON EXITING ROOM.
--- NOTE | 2016-06-26 04:02 | NUR ---
PT. IN BED LYING ON HER BACK WITH HOB UP FOR COMFORT AND HER EYES ARE CLOSED AND RESP. EVEN. CALL LIGHT WITHIN REACH.
[2016-06-26 06:22] LABS: BASOPHILS 0.5 % (0.0-2.0); EOSINOPHILS 0.5 % (0-7); HEMATOCRIT 30.9 % (36.0-48.0); HEMOGLOBIN 9.9 g/dL (12-16); IMMATURE GRANULOCYTES 5.8 % (0-5); LYMPHOCYTES 21.8 % (15-50); MCH 29.4 pg (26.0-34.0); MCV 91.7 fL (80.0-100.0); MEAN PLATELET VOLUME 9.6 fL (7.4-10.4); MONOCYTES 14.5 % (2-11); NEUTROPHILS 56.9 % (40-80); PLATELET COUNT 135 10x3/uL (130-400); RBC 3.37 10x6/uL (4.00-5.40); RDW 16.3 % (11.5-14.5); WBC 7.5 10x3/uL (4.8-10.8)
[2016-06-26 06:36] LABS: CALC OSMOLALITY 269 mosm/kg (275-300); CALCIUM 8.6 mg/dL (8.5-10.1); CARBON DIOXIDE 26.7 mmol/L (21.0-32.0); CHLORIDE - SERUM 100 mmol/L (98-107); CREATININE - SERUM 0.6 mg/dL (0.6-1.3); GLUCOSE 83 mg/dL (74-106); POTASSIUM - SERUM 4.3 mmol/L (3.5-5.1); SODIUM 134 mmol/L (136-145); UREA NITROGEN 21 mg/dL (7-18); eGFR NON AFRICAN AMERICAN > 90 mL/min (90-120)
--- NOTE | 2016-06-26 08:09 | NUR ---
SITTING UP IN BED. HAD LARGE BM THIS AM IN BEDPAN. REMAINS ON ISOLATION FOR C-DIFF
--- NOTE | 2016-06-26 10:00 | NUR ---
RESTING QUIETLY IN BED. CALL LIGHT IN REACH
[2016-06-26 10:14] VITALS: BP 103/57
--- NOTE | 2016-06-26 17:37 | NUR ---
SITTING UP IN BED EATING SUPPER. HAS BEEN UP IN W/C MOST OF DAY. DENIES PAIN. TIRES EASILY
--- NOTE | 2016-06-26 19:25 | NUR ---
ASSISTED PT. ONTO BEDPAN TO URINATE. PT. VOIDED LARGE AMOUNT OF CLEAR YELLOW URINE WITHOUT DISCOMFORT. PT. CLEANED AND BUTT BALM APPLIED TO BUTTOCK/COCCYX AREA FOR PROTECTION THERE ARE NO VISIBLE SKIN ISSUES AT THIS TIME. POSITIONED TO COMFORT. ASSESSMENT COMPLETED. NO VOICED NEEDS AT THIS TIME AND HER CALL LIGHT IS WITHIN REACH.
--- NOTE | 2016-06-26 21:30 | NUR ---
PT. IN 1ST STEP AIR MATTRESS BED WITH HER SCD'S ON BLE'S. PT. WITH HOB UP FOR COMFORT AND PLAYING A GAME ON HER I-PAD. PT. WITHOUT VOICED NEEDS AT THIS TIME AND HAS HER CALL LIGHT WITHIN REACH.
[2016-06-26 21:40] VITALS: BP 112/61
--- NOTE | 2016-06-27 00:10 | NUR ---
ASSISTED PT. ONTO BEDPAN TO URINATE. PT. VOIDED LARGE AMOUNT OF CLEAR YELLOW URINE WITHOUT COMPLAINT. CHANGED BRIEF IT WAS SOILED WITH URINE ALSO. POSITIONED PT. TO COMFORT AND CALL LIGHT WITHIN REACH. PT. HAD NO OTHER VOICED NEEDS AT THIS TIME.
--- NOTE | 2016-06-27 02:05 | NUR ---
PT. IN BED WITH HOB UP FOR COMFORT WITH EYES CLOSED AND RESP. EVEN. CALL LIGHT WITHIN REACH.
--- NOTE | 2016-06-27 06:02 | NUR ---
PT. IN BED WITH HOB UP AND EYES CLOSED AND RESP. EVEN. PT. FELL ASLEEP WHILE SHE WAS READING HER DEVOTIONS AND STILL HAS HER GLASSES ON. CALL LIGHT WITHIN REACH.
[2016-06-27 07:00] VITALS: BP 147/86
--- NOTE | 2016-06-27 07:30 | NUR ---
RESTING QUIETLY IN BED. CALL LIGHT IN REACH
--- NOTE | 2016-06-27 17:57 | NUR ---
SITTING UP IN BED EATING SUPPER. HAS BEEN UP AND SITTING IN W/C MOST OF DAY AGAIN. DENIES PAIN BUT STATES SHE IS TIRED. CALL LIGHT IN REACH
[2016-06-27 18:54] VITALS: BP 134/76
--- NOTE | 2016-06-27 23:00 | NUR ---
PT IN BED WITH EYES OPEN PLAYING WITH TABLET. BATH GIVEN WITHOUT DIFFICULTY WITH BED LININGS CHANGED AND CLEAN GOWN. PT TOILETED DURING THIS TIME. IN BED WITH NO COMPLAINTS OR CONCERNS MADE KNOWN. WATER AND CALL LIGHT IN REACH. WILL CONTINUE TO OBSERVE.
--- NOTE | 2016-06-28 02:04 | NUR ---
PT IN BED WITH EYES CLOSED AND CHEST RISING. RESPIRATIONS EVEN AND UNLABORED. NO SIGN/SYMPTOMS OF DISTRESS NOTED. WATER AND CALL LIGHT IN REACH. WILL CONTINUE TO OBSERVE.
--- NOTE | 2016-06-28 03:51 | NUR ---
PT REQUEST FOR BEDPAN FOR URINATION. PT ASSISTED WITH BEDPAN AND PERICARE PROVIDED. NO OTHER NEEDS MADE KNOWN. WATER AND CALL LIGHT IN REACH.
--- NOTE | 2016-06-28 05:24 | NUR ---
IN BED WITH EYES OPEN PLAYING WITH TABLET. NO CONCERN MADE KNOWN AT THIS TIME. CALL LIGHT IN REACH.
--- NOTE | 2016-06-28 07:30 | NUR ---
SITTING UP IN BED READING PAPER. C/O SHE IS TOO WEAK TO PULL COVERS FROM SLIDING OFF HER BED. MAX ASST WITH ADL'S NEEDED.
[2016-06-28 09:55] VITALS: BP 119/67
--- NOTE | 2016-06-28 13:27 | NUR ---
IRMA ASST TO TOILET. SHE CAN PUSH HERSELF A LITTLE WAYS IN W/C BUT TIRES QUICKLY AND REQUIRES ASST.
--- NOTE | 2016-06-28 14:05 | NUR ---
SITTING IN W/C IN ROOM
--- NOTE | 2016-06-28 17:57 | NUR ---
SITTING UP IN W/C IN ROOM VISITING WITH FRIEND.
[2016-06-28 18:19] VITALS: BP 141/77
--- NOTE | 2016-06-28 19:20 | NUR ---
PT UP IN CHAIR VISITING WITH DAUGHTER IN ROOM. CONTINUES ISOLATION FOR C-DIFF. NO CONCERNS MADE KNOWN AT THIS TIME. CALL LIGHT IN REACH. WILL CONTINUE TO OBSERVE.
--- NOTE | 2016-06-28 21:49 | NUR ---
PT IN BED PLAYING WITH TABLET. STATES SHE FELT SHE NEEDED A RESPIRATORY TREATMENT. RESPIRATORY CALLED AND ON UNIT AT THIS TIME. NO SIGNS/SYMPTOMS OF DISTRESS NOTED. CALL LIGHT IN REACH. WILL CONTINUE TO OBSERVE.
--- NOTE | 2016-06-29 01:23 | NUR ---
PT IN BED WITH EYES CLOSED AND CHEST RISING. RESPIRATIONS EVEN AND UNLABORED. ASSISTED WITH URINATION AT 0100. NO OTHER NEEDS MADE KNOWN. CALL LIGHT IN REACH. WILL CONTINUE TO OBSERVE.
[2016-06-29 05:39] LABS: BASOPHILS 0.3 % (0.0-2.0); EOSINOPHILS 0.7 % (0-7); HEMATOCRIT 29.3 % (36.0-48.0); HEMOGLOBIN 9.6 g/dL (12-16); LYMPHOCYTES 26.2 % (15-50); MCH 29.8 pg (26.0-34.0); MCHC 32.8 g/dL (31.0-37.0); MEAN PLATELET VOLUME 9.9 fL (7.4-10.4); MONOCYTES 13.9 % (2-11); NEUTROPHILS 56.9 % (40-80); PLATELET COUNT 130 10x3/uL (130-400); RBC 3.22 10x6/uL (4.00-5.40); RDW 16.1 % (11.5-14.5); WBC 7.1 10x3/uL (4.8-10.8)
[2016-06-29 05:50] LABS: CALC OSMOLALITY 269 mosm/kg (275-300); CALCIUM 8.9 mg/dL (8.5-10.1); CARBON DIOXIDE 24.6 mmol/L (21.0-32.0); CHLORIDE - SERUM 100 mmol/L (98-107); CREATININE - SERUM 0.7 mg/dL (0.6-1.3); GLUCOSE 92 mg/dL (74-106); POTASSIUM - SERUM 4.3 mmol/L (3.5-5.1); SODIUM 133 mmol/L (136-145); UREA NITROGEN 23 mg/dL (7-18); eGFR NON AFRICAN AMERICAN 84 mL/min (90-120)
--- NOTE | 2016-06-29 06:51 | NUR ---
PT IN BED WITH EYES CLOSED AND CHEST RISING. EASILY AROUSED UPON ENTRY. ASSISTED WITH URINATION. BRIEF CHANGED WITH BEDDING. NO OTHER NEED MADE KNOWN. CALL LIGHT IN REACH.
--- NOTE | 2016-06-29 07:00 | NUR ---
Pt. was received in bed awake and oriented x 3 at the beginning of this shift. No voiced complaints of needs and/or concerns. No signs of any discomfort or distress. Vital signs: Temp. 98.6, pulse pulse 90, resp. 14, b/p 124/70, 02Sat. 98%. Pt. remains in isolation precautions for C-Diff. Pt. was assisted out of bed and to the bathroom via wheelchair where she had a small bm and urinated. She went on to therapy after using the bathroom. She had already ate her breakfast.
[2016-06-29 09:35] VITALS: BP 124/70
--- NOTE | 2016-06-29 12:56 | NUR ---
Nutrition Follow Up: Pt reported that her appetite was good. She said that she is drinking Ensure and eating yogurt daily. Pt had some complaints regarding food/meals - RD noted. RD encouraged menu write ins and stated that they would be honored if possible. Pt requested that yogurt flavor be changed - RD will honor. Pt is eating 53% meal avg on a Regular diet. + BM 06/28/16 - noted pt is +CDT. Labs noted - Na low. Meds noted. Pt with fair po intake at this time. Rec continue current diet. Will honor food requests. RD following.
--- NOTE | 2016-06-29 18:01 | NUR ---
Pt. has had an uneventful day. She is assisted to and from the bathroom prn. All of her needs are met my staff when she puts on the call light.
--- NOTE | 2016-06-29 20:00 | NUR ---
PT RESTING IN BED WITH EYES OPEN. ALERT AND ORIENTED X 4. DENIES ACUTE DISCOMFORT AT THIS TIME. VSS. CONTACT PRECAUTIONS OBSERVED FOR CDIFF. PT ASSISTED UP TO THE BATHROOM WITH MAX ASSIST FOR TRANSFERS. SBA FOR TOILETING. MOD ASSIST WITH DRESSING. SR'S ARE UP X 3 IN BED. CALL LIGHT AND BEDSIDE TABLE ARE WITHIN EASY REACH.
[2016-06-29 20:25] VITALS: BP 111/63
--- NOTE | 2016-06-29 22:24 | NUR ---
PT IS RESTING IN BED PLAYING ON HER TABLET. ASSISTED TO THE BATHROOM. VOIDED WITHOUT DIFFICULTY. NO BM NOTED.
--- NOTE | 2016-06-30 01:35 | NUR ---
PT REQUESTED ASSISTANCE WITH VOIDING, PT REQUESTED BEDPAN STATING SHE HAD TO GO REALLY BAD AND DIDN'T THINK SHE COULD MAKE IT TO THE BATHROOM. MIN ASSIST WITH PLACEMENT OF BEDPAN. RESPIRATIONS REGULAR AND UNLABORED, NO S/S OF ACUTE DISTRESS.
--- NOTE | 2016-06-30 06:21 | NUR ---
PT RESTING IN BED READING HER BOOK. NO FURTHER NEEDS VOICED.
--- NOTE | 2016-06-30 08:00 | NUR ---
SITTING UP IN WC READY FOR BREAKFAST.CL IN REACH.
--- NOTE | 2016-06-30 08:17 | NUR ---
PT RESTING IN BED WITH EYES OPEN CALL LIGHT IN REACH NO PROBLEMS WILL MONITER
[2016-06-30 10:08] LABS: ANION GAP 15.8 mmol/L (8-16); CARBON DIOXIDE 22.6 mmol/L (21.0-32.0); POTASSIUM - SERUM 4.4 mmol/L (3.5-5.1)
[2016-06-30 10:11] LABS: CREATININE - SERUM 0.9 mg/dL (0.6-1.3)
[2016-06-30 10:16] LABS: BASOPHILS 0.2 % (0.0-2.0); EOSINOPHILS 0.9 % (0-7); HEMOGLOBIN 10.9 g/dL (12-16); IMMATURE GRANULOCYTES 0.8 % (0-5); LYMPHOCYTES 26.1 % (15-50); MCH 29.5 pg (26.0-34.0); MCHC 32.1 g/dL (31.0-37.0); MCV 91.9 fL (80.0-100.0); MEAN PLATELET VOLUME 10.5 fL (7.4-10.4); MONOCYTES 10.1 % (2-11); NEUTROPHILS 61.9 % (40-80); RDW 16.2 % (11.5-14.5)
[2016-06-30 10:17] LABS: PLATELET COUNT 165 10x3/uL (130-400)
--- NOTE | 2016-06-30 15:16 | NUR ---
CARE TEAM MEETING: PATIENT TENATIVE DISCHARGE DATE IS 07/02/16. TEAM RECCOMENDS THAT PATIENT NOT RETURN HOME IF SOMEONE NOT AVAILABLE TO ASSIST WITH CARE. SPOKE WITH DR. ABDUL AND HE WOULD LIKE FOR PATIENT OT BE REFERRED TO [facility] IN [place] WHERE HER DAUGHTER EDER RESIDES. REFERRAL HAS BEEN FAXED TO [facility] . WILL CONTINUE TO FOLLOW WITH PATIENT UNTIL DISCHARGED
--- NOTE | 2016-06-30 18:00 | NUR ---
PT RESTING IN BED WITH EYES OPEN CALL LIGHT IN REACH NO PROBLEMS WILL MONITER
[2016-06-30 20:00] VITALS: BP 109/65
--- NOTE | 2016-06-30 20:00 | NUR ---
PT IS RESTING IN BED WATCHING TV. ALERT AND ORIENTED X 4. PT DENIES ACUTE DISCOMFORT AT THIS TIME. VSS. SCD'S PLACED ON PT AT THIS TIME. PT ASSISTED TO USE THE BEDPAN. VOIDED 250 CC CLEAR YELLOW URINE. NO BM NOTED. RESTING ON A 1ST STEP AIR MATTRESS. SR'S ARE UP X 3 IN BED. CALL LIGHT AND BEDSIDE TABLE ARE WITHIN EASY REACH.
--- NOTE | 2016-06-30 22:25 | NUR ---
PT IS RESTING IN BED WATCHING TV. NO NEEDS VOICED.
--- NOTE | 2016-06-30 23:06 | NUR ---
PT. IN BED WITH HOB UP FOR COMFORT LYING ON HER BACK WITH HER EYES CLOSED AND RESP. EVEN. CALL LIGHT WITHIN REACH. PT. IS ON A 1ST STEP AIR MATTRESS AND IT IS INFLATED PROPERLY.
--- NOTE | 2016-07-01 00:58 | NUR ---
RESTING IN BED WITH EYES CLOSED.
--- NOTE | 2016-07-01 03:00 | NUR ---
PT ASSISTED TO THE BATHROOM WITH MAX ASSIST FOR TRANSFERS. SBA FOR TOILETING. MOD ASSIST FOR CLOTHING. VOIDED WITHOUT DIFFICULTY. NO BM NOTED. PT OPTED TO LAY IN BED AND READ HER BOOK AFTERWARDS.
--- NOTE | 2016-07-01 04:59 | NUR ---
PT IS RESTING QUIETLY IN BED WITH EYES CLOSED. RESPS ARE EVEN AND UNLABORED. NO ACUTE DISTRESS NOTED.
--- NOTE | 2016-07-01 07:30 | NUR ---
laying in bed. eyes closed. call light in reach
[2016-07-01 08:11] VITALS: BP 122/70
[2016-07-01] MEDS ORDERED: ELIQUIS2.5 MG PO (08:58)
--- NOTE | 2016-07-01 09:50 | NUR ---
UP IN WHEELCHAIR IN TREATMENT ROOM.DENIES PAIN AND NEEDS.ASSESSMENT COMPLETED. WEARING ISOLATION GOWN AND GLOVES.WILL CONTINUE WITH PLAN OF CARE.
--- NOTE | 2016-07-01 14:39 | NUR ---
PATIENT DISCHARGING TO [facility] IN [place] AND WILL DISCHARGE THERE ON 07/02/16 . [facility] WILL BE HERE BETWEEN 9:30 - 10:00. APPOINTMENT WILL BE MADE WITH PATIENT PCP, DR. MCDONALD WHEN DISCHARGED FROM [facility]. PATIENT HAS WALKER AND WHEELCHAIR AT HOME. PATIENT CHOICE FORM FOR [facility] AND [facility] FORM SIGNED AND FILED IN CHART. DR. MCDONALD NOTIFIED OF ACCEPTANCE TO FACILITY. WILL CONTINUE TO FOLLOW WITH PATIENT UNTIOL DISCHARGED
--- NOTE | 2016-07-01 18:47 | NUR ---
UP WITH ASST TO BATHROOM. BACK TO BED. CALL LIGHT IN REACH
[2016-07-01 19:49] VITALS: BP 119/68
--- NOTE | 2016-07-01 20:00 | NUR ---
PT IS RESTING IN BED WITH EYES OPEN. ALERT AND ORIENTED X 4. DENIES ACUTE DISCOMFORT AT THIS TIME. ASSISTED TO THE BATHROOM WITH MOD ASSIST FOR TRANSFERS. SBA FOR TOILETING, AND MOD ASSIST FOR DRESSING. SMALL SOFT/MUCOUSY BM NOTED. PT ASSISTED BACK TO BED. RESTING ON A 1ST STEP MATTRESS. SCD'S ARE ON. CONTACT PRECAUTIONS OBSERVED FOR CDIFF. SR'S ARE UP X 3 IN BED. CALL LIGHT AND BEDSIDE TABLE ARE WITHIN EASY REACH.
--- NOTE | 2016-07-01 22:16 | NUR ---
PT. IN BED WITH HOB UP FOR COMFORT LYING ON HIS BACK WITH EYES CLOSED AND RESP. EVEN. CALL LIGHT WITHIN REACH.
--- NOTE | 2016-07-02 01:00 | NUR ---
PT ASSISTED TO USE BEDPAN WITH MAX ASSIST. VOIDED WITHOUT DIFFICULTY. NO BM NOTED.
--- NOTE | 2016-07-02 04:27 | NUR ---
PT IS RESTING IN BED READING A BOOK. NO NEEDS VOICED.
--- NOTE | 2016-07-02 06:04 | NUR ---
PT IS RESTING QUIETLY IN BED WITH EYES CLOSED. RESPS ARE EVEN AND UNLABORED. NO ACUTE DISTRESS NOTED.
--- NOTE | 2016-07-02 07:30 | NUR ---
sitting up in bed reading paper.
--- NOTE | 2016-07-02 10:30 | NUR ---
D/C TO [facility] IN [place] WITH ALL PERSONAL BELONGINGS. DTR WITH PT AT D/C. REPORT CALLED TO ARTHUR GONZALEZ LPN.
[2016-07-02 12:13] VITALS: BP 133/69
== END 2016-07-02 10:30 | DRG 91 ==
LOC: D.REHAB 17:20
PROVIDERS: ADMIT Emergency Medicine
DX: G72.89 Other specified myopathies (principal); J96.01 Acute respiratory failure with hypoxia; J18.9 Pneumonia, unspecified organism; K56.7 Ileus, unspecified; E87.1 Hypo-osmolality and hyponatremia; A04.7 Enterocolitis due to Clostridium difficile; K92.2 Gastrointestinal hemorrhage, unspecified; N17.9 Acute kidney failure, unspecified; D69.6 Thrombocytopenia, unspecified; E86.0 Dehydration; D72.829 Elevated white blood cell count, unspecified; R19.7 Diarrhea, unspecified; R50.9 Fever, unspecified; R53.81 Other malaise; I10 Essential (primary) hypertension; M19.90 Unspecified osteoarthritis, unspecified site; F41.9 Anxiety disorder, unspecified; Z79.01 Long term (current) use of anticoagulants; I48.91 Unspecified atrial fibrillation